=== PATIENT | female | born 1940 | race Caucasian/White ===

== ENCOUNTER 2019-06-01 09:43 | Emergency (ER) | payer MEDICARE, OTHER, SELFPAY ==
[2019-06-01 09:46] VITALS: BP 145/83; PULSE 52; RESP 15; TEMP 36.9; O2SAT 96; BMI 27.4
--- NOTE | 2019-06-01 10:01 | XRR_ITS ---
PROCEDURE INFORMATION: Exam: XR Chest, 1 View Exam date and time: 06/01/2019 10:15 AM Age: 79 years old Clinical indication: Left-sided chest pain TECHNIQUE: Imaging protocol: XR of the chest Views: 1 view. COMPARISON: [facility] Chest 2 views 03/15/2019 10:01 AM FINDINGS: Lungs: Hyperinflation. No CHF or focal consolidation. Trace bibasilar atelectasis. Pleural space: Unremarkable. No pleural effusion. No pneumothorax. Heart/Mediastinum: Unremarkable. No cardiomegaly. Vasculature: Tortuosity of the thoracic aorta. Bones/joints: No acute findings. XR/XR chest 1V portable [id number] IMPRESSION: No acute findings.
--- NOTE | 2019-06-01 10:01 | ECG_ITS ---
Measurements Intervals [place] Rate: 54 P: 68 [place]: 146 QRS: 21 QRSD: 90 T: 38 QT: 415 QTc: 396 SINUS BRADYCARDIA POSSIBLE INFERIOR MYOCARDIAL INFARCTION [30 ms Q WAVE IN II/aVF], PROBABLY OLD Compared to ECG 05/31/2019 10:36:04 Myocardial infarct finding now present Electronically Signed On 06-01-2019 14:57:29 PROGRAMMER OPERATOR NUMERICAL CONTROL by Tami Morales M.D. [id number]
--- NOTE | 2019-06-01 10:13 | W.ED.CHESTPA ---
HPI - Chest Pain General: Chief Complaint: Chest Pain Stated Complaint: Chest pain, Patient reported episode of chest pain at 920, started with pain in the neck bilaterally then across her mid chest, Patient has recently been taking 40 mg of prednisone a day for possible giant cell arteritis for the last week, has been holding aspirin from daily therapy for the last 2 days for planned temporal artery biopsy on this coming Monday. Patient took one nitro at 930 which resolved her chest pain. Patient reports no chest pain at this time. Time Seen by Provider: 06/01/19 10:01 History of Present Illness: Associated symptoms: Deny dyspnea Review of Systems General: Reports: 10 or more systems reviewed and unremarkable except in HPI and below Const: Denies: malaise Card: Reports: chest pain Resp: Denies: shortness of breath Neuro: Denies: headache PFSH ED PFSH: Statuses (acute, chronic, etc) shown below reflect problem list status as previously entered and may not be historically accurate Medical History Arthritis (Acute) Asthma (Acute) Bradycardia (Acute) Cerebral meningioma (Acute) Chronic sinusitis (Acute) Depressed (Acute) Deviated septum (Acute) GERD (gastroesophageal reflux disease) (Acute) Health education/counseling (Acute) HLA-B27 spondyloarthropathy (Acute) Hoarseness, persistent (Acute) Hypertension (Acute) Incomplete bladder emptying (Acute) Memory loss (Acute) Migraine (Acute) PMR (polymyalgia rheumatica) (Acute) Post-nasal drip (Acute) Temporal headache (Acute) Surgical History History of abdominal hysterectomy (Acute) History of appendectomy (Acute) History of bunionectomy of left great toe (Acute) History of cataract extraction with lens replacement (Acute) History of repair of rectocele (Acute) Family History Father CHF (congestive heart failure) Mother Diabetes 3 SIBLINGS HAVE DIABETES WELL Mother Cancer Hypertension Brother AAA (abdominal aortic aneurysm) Brother AAA (abdominal aortic aneurysm) Brother AAA (abdominal aortic aneurysm) Sister AAA (abdominal aortic aneurysm) Cancer Father Heart attack Social History Smoking and tobacco status: former smoker Second hand smoke exposure: Yes Alcohol intake: current Alcohol intake frequency: holidays/special occasions only Alcohol type: wine Desire information about alcohol rehabilitation?: No (RARELY EVER HAVE A DRINK) Counseling given: No Physical Exam Const: COMMON NORMALS: no apparent distress and oriented x3 GENERAL APPEARANCE: cooperative HENMT: COMMON NORMALS: normocephalic, external ears normal, EAC's normal, TM's normal bilaterally and external nose normal HEAD & SCALP: normal to inspection and normocephalic FACE & SINUS: normal facial exam NOSE: external nose normal GENERAL EAR: hearing grossly impaired EXTERNAL EAR: Yes external ears normal EXTERNAL AUDITORY CANAL: EAC's normal TYMPANIC MEMBRANE: TM's normal bilaterally MOUTH: oral and palatal mucosa normal THROAT: posterior oropharynx normal Eye: COMMON NORMALS: PERRL and EOMs intact bilaterally PUPIL: Yes PERRL Neck/C-Spine: COMMON NORMALS: full ROM and no lymphadenopathy Lymph: LYMPHATIC: no lymphedema noted Chest: COMMONS NORMALS: inspection of chest normal and palpation of chest normal Resp: COMMON NORMALS: normal respiratory effort and clear to auscultation bilaterally AUSCULTATION: clear to auscultation bilaterally Cardio: COMMON NORMALS: regular rate and regular rhythm RATE: regular rate RHYTHM: regular rhythm GI: COMMON NORMALS: normal to inspection, nondistended, normoactive bowel sounds and non-tender : COMMON NORMALS: Yes no CVA tenderness BLADDER/KIDNEY EXAM: Yes no CVA tenderness Back/Pelvis: COMMON NORMALS: no CVA tenderness and thoracic and lumbar spine normal to inspection Extremity: COMMON NORMALS: normal to inspection GENERAL: No edema Neuro: COMMON NORMALS: oriented x3, moves all extremities and no focal motor deficits Psych: COMMON NORMALS: mental status grossly normal and cooperative Skin: COMMON NORMALS: no rashes or lesions noted GENERAL SKIN EXAM: no rashes or lesions noted Course Vital Signs: Vital signs: Vital Signs Temperature 98.5 F 06/01/19 09:46 Pulse Rate 49 L 06/01/19 12:50 Respiratory Rate 13 06/01/19 12:50 Blood Pressure 152/83 06/01/19 12:50 Pulse Oximetry 94 06/01/19 12:50 MDM - Chest Pain Lab Data: Labs: Lab Results 06/01/19 06/01/19 06/01/19 Range/Units 10:05 10:05 10:05 WBC 10.1 H (4.0-10.0) 10^3/ uL RBC 4.55 (4.1-5.3) 10^6/u L Hgb 13.5 (11.5-15.3) g/dL Hct 40.9 (37.0-47.0) % MCV 89.9 (81-99) fL MCH 29.7 (28.0-34.0) pg MCHC 33.0 (30.0-36.0) g/dL RDW 13.7 (12.1-15.1) % Plt Count 388 (130-400) 10^3/c mm MPV 9.1 (7.4-10.4) fL Neut % (Auto) 82.4 % Lymph % (Auto) 11.6 % [place] % (Auto) 5.1 % Eos % (Auto) 0.1 % Baso % (Auto) 0.1 % Neut # (Auto) 8.3 H (1.8-7.7) 10^3/u L Lymph # (Auto) 1.2 (0.8-4.8) 10^3/u L [place] # (Auto) 0.5 (0.2-0.9) 10^3/u L Eos # (Auto) 0.0 (0.0-0.8) 10^3/u L Baso # (Auto) 0.0 (0.0-0.1) 10^3/u L Nucleated RBC % (a uto) 0 % Nucleated RBCs # 0.0 /100WBC PT 13.30 (10.5-13.3) SECO NDS INR 0.98 (0.8-1.2) APTT 30.8 (23.9-36.7) SECO NDS D-Dimer 0.69 H (0-0.59) ug/mIFE U Sodium 131 L (136-145) mmol/L Potassium 4.1 (3.5-5.1) mmol/L Chloride 94 L (98-107) mmol/L Carbon Dioxide 26 (22-29) mmol/L Anion Gap 15.1 (5-19) BUN 31 H (8-23) mg/dL Creatinine 1.0 H (0.5-0.9) mg/dL Glucose 106 (74-106) mg/dL Calcium 10.0 (8.8-10.2) mg/Dl Magnesium 2.2 (1.7-2.3) mg/dL Total Bilirubin 0.4 (0.15-1.2) mg/dL AST 18 (0-32) U/L ALT 20 (0-33) U/L Alkaline Phosphata se 68 (35-105) IU/L Troponin T Baselin e (0-10) ng/mL Troponin T 120 Min [place] (0-10) ng/mL Delta Troponin T (0-10) ABS# Total Protein 7.5 (6.6-8.7) g/dL Albumin 4.5 (3.5-5.2) g/dL Globulin 3.0 (1.3-4.6) g/dL Urine Color (Yellow) Urine Appearance (CLEAR) Urine pH (5-7) Ur Specific Gravit y (1.005-1.030) Urine Protein (Negative) Urine Glucose (UA) (Normal) Urine Ketones (Negative) Urine Occult Blood (Negative) Urine Nitrate (Negative) Urine Bilirubin (NEGATIVE) Urine Urobilinogen (Negative) mg/dL Ur Leukocyte Renetta ase (Negative) 06/01/19 06/01/19 06/01/19 Range/Units 10:05 11:07 12:11 WBC (4.0-10.0) 10^3/ uL RBC (4.1-5.3) 10^6/u L Hgb (11.5-15.3) g/dL Hct (37.0-47.0) % MCV (81-99) fL MCH (28.0-34.0) pg MCHC (30.0-36.0) g/dL RDW (12.1-15.1) % Plt Count (130-400) 10^3/c mm MPV (7.4-10.4) fL Neut % (Auto) % Lymph % (Auto) % [place] % (Auto) % Eos % (Auto) % Baso % (Auto) % Neut # (Auto) (1.8-7.7) 10^3/u L Lymph # (Auto) (0.8-4.8) 10^3/u L [place] # (Auto) (0.2-0.9) 10^3/u L Eos # (Auto) (0.0-0.8) 10^3/u L Baso # (Auto) (0.0-0.1) 10^3/u L Nucleated RBC % (a uto) % Nucleated RBCs # /100WBC PT (10.5-13.3) SECO NDS INR (0.8-1.2) APTT (23.9-36.7) SECO NDS D-Dimer (0-0.59) ug/mIFE U Sodium (136-145) mmol/L Potassium (3.5-5.1) mmol/L Chloride (98-107) mmol/L Carbon Dioxide (22-29) mmol/L Anion Gap (5-19) BUN (8-23) mg/dL Creatinine (0.5-0.9) mg/dL Glucose (74-106) mg/dL Calcium (8.8-10.2) mg/Dl Magnesium (1.7-2.3) mg/dL Total Bilirubin (0.15-1.2) mg/dL AST (0-32) U/L ALT (0-33) U/L Alkaline Phosphata se (35-105) IU/L Troponin T Baselin e 12 H (0-10) ng/mL Troponin T 120 Min [place] 10.12 H (0-10) ng/mL Delta Troponin T -1.88 L (0-10) ABS# Total Protein (6.6-8.7) g/dL Albumin (3.5-5.2) g/dL Globulin (1.3-4.6) g/dL Urine Color Straw (Yellow) Urine Appearance Clear (CLEAR) Urine pH 6.5 (5-7) Ur Specific Gravit y 1.005 (1.005-1.030) Urine Protein Neg (Negative) Urine Glucose (UA) Norm (Normal) Urine Ketones Negative (Negative) Urine Occult Blood Neg (Negative) Urine Nitrate Negative (Negative) Urine Bilirubin Neg (NEGATIVE) Urine Urobilinogen Norm (Negative) mg/dL Ur Leukocyte Renetta ase Negative (Negative) EKG Data^: EKG 1: Attestation: I personally reviewed and interpreted this EKG as follows: EKG interpretation date: 06/01/19 EKG interpretation time: 09:50 Prior EKG tracings: not available for review Interpretation: regular rate of 54, normal axis, no ST elevation Computer generated interpretation: Sinus bradycardia Possible inferior [place], probably old Borderline ECG EKG 2: Attestation: I personally reviewed and interpreted this EKG as follows: (1207, sinus bradycardia, regular rate and rhythm, 50 bpm, no ST elevation, no change from prior EKG) Discharge Plan Discharge Patient Disposition: Home, Self-Care Clinical Impression: Atypical chest pain Adverse drug effect Qualifiers: Encounter type: initial encounter Qualified Code(s): T50.905A - Adverse effect of unspecified drugs, medicaments and biological substances, initial encounter Condition: Stable Prescriptions: No Action prednisone 5 mg tablet 20 mg PO BID RF: 0 hydralazine 25 mg tablet 25 mg PO TID RF: 0 simvastatin 20 mg tablet RF: 0 fluticasone propionate 50 mcg/actuation spray,suspension 2 spray INTRANASAL DAILY PRN (Reason: Sinus Symptoms) RF: 0 escitalopram oxalate 10 mg tablet 10 mg PO DAILY RF: 0 levalbuterol tartrate 45 mcg/actuation HFA aerosol inhaler 2 puff INHALATION Q4H RF: 0 Aspirin Low Dose 81 mg PO DAILY RF: 0 omeprazole 40 mg Capsule,Delayed Release(Dr/Ec) 40 mg PO DAILY RF: 0 Discharge Orders: Discharge Order (Routine); Ordered 06/01/19 Ordered By: Tom Trujillo Referrals: Lucio Carmona DO [Primary Care Provider] - Discharge Diet: light diet avoid, greasy, spicy or acidic foods Discharge Activity: Resume usual activity Activity Restrictions/Additional Instructions: Home and rest Light activity Drink plenty of water with medications Eat food with prednisone Return to ER for increase chest discomfort, or shortness of breath Follow-up with primary care in three days for recheck and recommendations for further evaluation Coding Level of Care Code ED Parking Enforcement Technician for Chg Fwd Exam Problem Focused
[2019-06-01 10:24] LABS: Basophils % 0.1 %; Eosinophils % 0.1 %; Hematocrit 40.9 % (37.0-47.0); Hemoglobin 13.5 g/dL (11.5-15.3); Lymphocytes # 1.2 10^3/uL (0.8-4.8); Lymphocytes % 11.6 %; Mean Corpuscular Hemoglobin 29.7 pg (28.0-34.0); Mean Corpuscular Volume 89.9 fL (81-99); Mean Platelet Volume 9.1 fL (7.4-10.4); Monocytes # 0.5 10^3/uL (0.2-0.9); Monocytes % 5.1 %; Neutrophils # 8.3 10^3/uL (1.8-7.7); Neutrophils % 82.4 %; Nucleated Red Blood Cells % 0 %; Platelet Count 388 10^3/cmm (130-400); Red Blood Count 4.55 10^6/uL (4.1-5.3); Red Cell Distribution Width 13.7 % (12.1-15.1); White Blood Count 10.1 10^3/uL (4.0-10.0)
[2019-06-01 10:35] LABS: INR 0.98 (0.8-1.2)
[2019-06-01 10:36] VITALS: RESP 16; O2SAT 95
[2019-06-01] MEDS: morphine 4 mg/mL SDV 1 mL IVP (10:36)
[2019-06-01 10:37] LABS: Partial Thromboplastin Time 30.8 SECONDS (23.9-36.7)
[2019-06-01 10:39] LABS: D Dimer 0.69 ug/mIFEU (0-0.59)
[2019-06-01 10:53] LABS: Alanine Aminotransferase 20 U/L (0-33); Albumin Level 4.5 g/dL (3.5-5.2); Alkaline Phosphatase 68 IU/L (35-105); Anion Gap 15.1 (5-19); Aspartate Amino Transferase 18 U/L (0-32); Blood Urea Nitrogen 31 mg/dL (8-23); Carbon Dioxide 26 mmol/L (22-29); Chloride 94 mmol/L (98-107); Glucose 106 mg/dL (74-106); Magnesium 2.2 mg/dL (1.7-2.3); Potassium 4.1 mmol/L (3.5-5.1); Sodium 131 mmol/L (136-145); Total Bilirubin 0.4 mg/dL (0.15-1.2); Total Protein 7.5 g/dL (6.6-8.7)
[2019-06-01 10:55] LABS: Troponin(5th) Baseline 12 ng/mL (0-10)
[2019-06-01 11:00] VITALS: BP 140/95; PULSE 70; RESP 13; O2SAT 96
[2019-06-01 11:39] LABS: Add Urine Microscopic? NO
[2019-06-01 11:54] LABS: Bilirubin Urine Neg (NEGATIVE); Blood Urine Neg (Negative); Glucose Urine UA Norm (Normal); Ketones Urine Negative (Negative); Leukocyte Esterase Urine Negative (Negative); Nitrate Urine Negative (Negative); Protein Urine Neg (Negative); Specific Gravity, Urine 1.005 (1.005-1.030); Urine Appearance Clear (CLEAR); Urine Color Straw (Yellow); Urobilinogen Urine Norm (Negative); pH Urine 6.5 (5-7)
--- NOTE | 2019-06-01 12:01 | ECG_ITS ---
Measurements Intervals [place] Rate: 49 P: 78 [place]: 143 QRS: 34 QRSD: 97 T: 49 QT: 441 QTc: 401 SINUS BRADYCARDIA Compared to ECG 05/31/2019 10:36:04 No significant changes Electronically Signed On 06-01-2019 14:59:02 SUPERVISOR FUNCTIONAL TESTING by Tami Morales M.D. [id number]
[2019-06-01 12:39] LABS: Troponin 5 2HR 10.12 ng/mL (0-10)
--- NOTE | 2019-06-01 12:47 | PC.NURSE ---
Rec'd report , care transfered.
[2019-06-01 12:48] LABS: Troponin 5 2HR Delta -1.88 ABS# (0-10)
[2019-06-01 12:50] VITALS: BP 152/83; PULSE 49; RESP 13; O2SAT 94
--- NOTE | 2019-06-01 12:59 | W.ED.CHESTPA ---
HPI - Chest Pain General: Chief Complaint: Chest Pain Stated Complaint: Chest pain, Patient reported episode of chest pain at 920, started with pain in the neck bilaterally then across her mid chest, Patient has recently been taking 40 mg of prednisone a day for possible giant cell arteritis for the last week, has been holding aspirin from daily therapy for the last 2 days for planned temporal artery biopsy on this coming Monday. Patient took one nitro at 930 which resolved her chest pain. Patient reports no chest pain at this time. Time Seen by Provider: 06/01/19 10:01 PFSH ED PFSH: Statuses (acute, chronic, etc) shown below reflect problem list status as previously entered and may not be historically accurate Medical History Arthritis (Acute) Asthma (Acute) Bradycardia (Acute) Cerebral meningioma (Acute) Chronic sinusitis (Acute) Depressed (Acute) Deviated septum (Acute) GERD (gastroesophageal reflux disease) (Acute) Health education/counseling (Acute) HLA-B27 spondyloarthropathy (Acute) Hoarseness, persistent (Acute) Hypertension (Acute) Incomplete bladder emptying (Acute) Memory loss (Acute) Migraine (Acute) PMR (polymyalgia rheumatica) (Acute) Post-nasal drip (Acute) Temporal headache (Acute) Surgical History History of abdominal hysterectomy (Acute) History of appendectomy (Acute) History of bunionectomy of left great toe (Acute) History of cataract extraction with lens replacement (Acute) History of repair of rectocele (Acute) Family History Father CHF (congestive heart failure) Mother Diabetes 3 SIBLINGS HAVE DIABETES WELL Mother Cancer Hypertension Brother AAA (abdominal aortic aneurysm) Brother AAA (abdominal aortic aneurysm) Brother AAA (abdominal aortic aneurysm) Sister AAA (abdominal aortic aneurysm) Cancer Father Heart attack Social History Smoking and tobacco status: former smoker Second hand smoke exposure: Yes Alcohol intake: current Alcohol intake frequency: holidays/special occasions only Alcohol type: wine Desire information about alcohol rehabilitation?: No (RARELY EVER HAVE A DRINK) Counseling given: No Course Vital Signs: Vital signs: Vital Signs Temperature 98.5 F 06/01/19 09:46 Pulse Rate 49 L 06/01/19 12:50 Respiratory Rate 13 06/01/19 12:50 Blood Pressure 152/83 06/01/19 12:50 Pulse Oximetry 94 06/01/19 12:50 MDM - Chest Pain MDM Narrative: Medical decision making narrative: Patient came in today for complaints of an episode of chest discomfort to the central chest with radiation up into her neck and down both arms. Patient has no previous history of cardiac illness. Patient is at this time taking prednisone for possible giant cell arteritis. Exam notes respirations are even lungs are clear auscultation. Abdomen soft nontender. No reproducible pain to the chest wall. Vital signs are stable without ectopy on the monitor. Differential diagnosis includes ACS, adverse drug reaction, CHF, pneumonia, PE, dissecting aorta. Laboratory values were insignificant with 0 and 2 hour troponin levels unchanged. Patient was pain-free on arrival to the ER. Reviewed exam with patient recommended treatment with follow-up with primary care and continue treatment as directed. Suspect the patient had a adverse drug effect to the steroid she is on at this time causing either chest pressure or gastric discomfort. Patient should return to the ER for shortness of breath or worsening symptoms. Patient agreed to this plan at this time and will follow-up with primary care in 3 days. Lab Data: Labs: Lab Results 06/01/19 06/01/19 06/01/19 Range/Units 10:05 10:05 10:05 WBC 10.1 H (4.0-10.0) 10^3/ uL RBC 4.55 (4.1-5.3) 10^6/u L Hgb 13.5 (11.5-15.3) g/dL Hct 40.9 (37.0-47.0) % MCV 89.9 (81-99) fL MCH 29.7 (28.0-34.0) pg MCHC 33.0 (30.0-36.0) g/dL RDW 13.7 (12.1-15.1) % Plt Count 388 (130-400) 10^3/c mm MPV 9.1 (7.4-10.4) fL Neut % (Auto) 82.4 % Lymph % (Auto) 11.6 % [place] % (Auto) 5.1 % Eos % (Auto) 0.1 % Baso % (Auto) 0.1 % Neut # (Auto) 8.3 H (1.8-7.7) 10^3/u L Lymph # (Auto) 1.2 (0.8-4.8) 10^3/u L [place] # (Auto) 0.5 (0.2-0.9) 10^3/u L Eos # (Auto) 0.0 (0.0-0.8) 10^3/u L Baso # (Auto) 0.0 (0.0-0.1) 10^3/u L Nucleated RBC % (a uto) 0 % Nucleated RBCs # 0.0 /100WBC PT 13.30 (10.5-13.3) SECO NDS INR 0.98 (0.8-1.2) APTT 30.8 (23.9-36.7) SECO NDS D-Dimer 0.69 H (0-0.59) ug/mIFE U Sodium 131 L (136-145) mmol/L Potassium 4.1 (3.5-5.1) mmol/L Chloride 94 L (98-107) mmol/L Carbon Dioxide 26 (22-29) mmol/L Anion Gap 15.1 (5-19) BUN 31 H (8-23) mg/dL Creatinine 1.0 H (0.5-0.9) mg/dL Glucose 106 (74-106) mg/dL Calcium 10.0 (8.8-10.2) mg/Dl Magnesium 2.2 (1.7-2.3) mg/dL Total Bilirubin 0.4 (0.15-1.2) mg/dL AST 18 (0-32) U/L ALT 20 (0-33) U/L Alkaline Phosphata se 68 (35-105) IU/L Troponin T Baselin e (0-10) ng/mL Troponin T 120 Min [place] (0-10) ng/mL Delta Troponin T (0-10) ABS# Total Protein 7.5 (6.6-8.7) g/dL Albumin 4.5 (3.5-5.2) g/dL Globulin 3.0 (1.3-4.6) g/dL Urine Color (Yellow) Urine Appearance (CLEAR) Urine pH (5-7) Ur Specific Gravit y (1.005-1.030) Urine Protein (Negative) Urine Glucose (UA) (Normal) Urine Ketones (Negative) Urine Occult Blood (Negative) Urine Nitrate (Negative) Urine Bilirubin (NEGATIVE) Urine Urobilinogen (Negative) mg/dL Ur Leukocyte Renetta ase (Negative) 06/01/19 06/01/19 06/01/19 Range/Units 10:05 11:07 12:11 WBC (4.0-10.0) 10^3/ uL RBC (4.1-5.3) 10^6/u L Hgb (11.5-15.3) g/dL Hct (37.0-47.0) % MCV (81-99) fL MCH (28.0-34.0) pg MCHC (30.0-36.0) g/dL RDW (12.1-15.1) % Plt Count (130-400) 10^3/c mm MPV (7.4-10.4) fL Neut % (Auto) % Lymph % (Auto) % [place] % (Auto) % Eos % (Auto) % Baso % (Auto) % Neut # (Auto) (1.8-7.7) 10^3/u L Lymph # (Auto) (0.8-4.8) 10^3/u L [place] # (Auto) (0.2-0.9) 10^3/u L Eos # (Auto) (0.0-0.8) 10^3/u L Baso # (Auto) (0.0-0.1) 10^3/u L Nucleated RBC % (a uto) % Nucleated RBCs # /100WBC PT (10.5-13.3) SECO NDS INR (0.8-1.2) APTT (23.9-36.7) SECO NDS D-Dimer (0-0.59) ug/mIFE U Sodium (136-145) mmol/L Potassium (3.5-5.1) mmol/L Chloride (98-107) mmol/L Carbon Dioxide (22-29) mmol/L Anion Gap (5-19) BUN (8-23) mg/dL Creatinine (0.5-0.9) mg/dL Glucose (74-106) mg/dL Calcium (8.8-10.2) mg/Dl Magnesium (1.7-2.3) mg/dL Total Bilirubin (0.15-1.2) mg/dL AST (0-32) U/L ALT (0-33) U/L Alkaline Phosphata se (35-105) IU/L Troponin T Baselin e 12 H (0-10) ng/mL Troponin T 120 Min [place] 10.12 H (0-10) ng/mL Delta Troponin T -1.88 L (0-10) ABS# Total Protein (6.6-8.7) g/dL Albumin (3.5-5.2) g/dL Globulin (1.3-4.6) g/dL Urine Color Straw (Yellow) Urine Appearance Clear (CLEAR) Urine pH 6.5 (5-7) Ur Specific Gravit y 1.005 (1.005-1.030) Urine Protein Neg (Negative) Urine Glucose (UA) Norm (Normal) Urine Ketones Negative (Negative) Urine Occult Blood Neg (Negative) Urine Nitrate Negative (Negative) Urine Bilirubin Neg (NEGATIVE) Urine Urobilinogen Norm (Negative) mg/dL Ur Leukocyte Renetta ase Negative (Negative) Discharge Plan Discharge Patient Disposition: Home, Self-Care Clinical Impression: Atypical chest pain Adverse drug effect Qualifiers: Encounter type: initial encounter Qualified Code(s): T50.905A - Adverse effect of unspecified drugs, medicaments and biological substances, initial encounter Condition: Stable Prescriptions: No Action prednisone 5 mg tablet 20 mg PO BID RF: 0 hydralazine 25 mg tablet 25 mg PO TID RF: 0 simvastatin 20 mg tablet RF: 0 fluticasone propionate 50 mcg/actuation spray,suspension 2 spray INTRANASAL DAILY PRN (Reason: Sinus Symptoms) RF: 0 escitalopram oxalate 10 mg tablet 10 mg PO DAILY RF: 0 levalbuterol tartrate 45 mcg/actuation HFA aerosol inhaler 2 puff INHALATION Q4H RF: 0 Aspirin Low Dose 81 mg PO DAILY RF: 0 omeprazole 40 mg Capsule,Delayed Release(Dr/Ec) 40 mg PO DAILY RF: 0 Discharge Orders: Discharge Order (Routine); Ordered 06/01/19 Ordered By: Tom Trujillo Referrals: Lucio Carmona DO [Primary Care Provider] - Discharge Diet: light diet avoid, greasy, spicy or acidic foods Discharge Activity: Resume usual activity Activity Restrictions/Additional Instructions: Home and rest Light activity Drink plenty of water with medications Eat food with prednisone Return to ER for increase chest discomfort, or shortness of breath Follow-up with primary care in three days for recheck and recommendations for further evaluation Coding Level of Care Code ED Financial Accountant for Krunal Piña
[2019-06-01 13:05] VITALS: BP 125/78; PULSE 51; RESP 16; O2SAT 97
== END 2019-06-01 13:14 | disposition home or self-care (01) ==
PROVIDERS: Emergency Provider Nurse Practitioner Family; Family Provider Internal Medicine; PCP Internal Medicine
DX: R07.89 Other chest pain (principal); T50.905A Adverse effect of unspecified drugs, medicaments and biological substances, initial encounter; Z87.891 Personal history of nicotine dependence; J45.909 Unspecified asthma, uncomplicated; I10 Essential (primary) hypertension
CPT/HCPCS: 36415; 71045; 80053; 81003; 83735; 84484; 85025; 85378; 85610; 85730; 93005; 96372; 99282; A9270; J2270

== ENCOUNTER 2019-06-10 10:29 | Day surgery (SDC) | payer MEDICARE, OTHER, SELFPAY ==
[2019-05-31 10:08] VITALS: BMI 27.4
--- NOTE | 2019-05-31 10:17 | ECG_ITS ---
Measurements Intervals [place] Rate: 53 P: 64 [place]: 149 QRS: 11 QRSD: 88 T: 19 QT: 415 QTc: 393 SINUS BRADYCARDIA Compared to ECG 11/09/2017 11:53:40 Myocardial infarct finding no longer present Electronically Signed On 05-31-2019 15:08:20 ARMATURE BANDER by Yuly Snow M.D. [id number]
--- NOTE | 2019-05-31 10:42 | P.PN_ITS ---
Pre-Anesthetic Assessment Pre-Anesthetic Assessment: Height/Weight: Height 1.68 m Weight 77.111 kg Proposed Procedure: Operation Date: 06/04/19 13:25 Proposed Procedures p Temporal Artery Biopsy Left Poss Right(Bilateral) - Tadeo Jones MD Social: Social History: No alcohol and No tobacco Exam: Pre-Anes Outpt Exam: alert, oriented x 3, clear to auscultation bilaterally and regular rate & rhythm Airway: Submandibular: WNL Cervical ROM: WNL MP: 2 Dentition: Full History/ROS: No significant history except as noted Pulmonary: Pulmonary: Asthma CV/HEM: CV/HEM: Arrythmia Anesthetic Plan: ASA status: II Anesthesia: Anesthesia Evaluation and MAC Risk of > 500 ml blood loss (7ml/kg in children): No PFSH Anesthesia PFSH: Medical History (Updated 05/31/19 @ 10:43 by Neto Joseph MD) Arthritis (Acute) Asthma (Acute) Bradycardia (Acute) Cerebral meningioma (Acute) Chronic sinusitis (Acute) Depressed (Acute) Deviated septum (Acute) GERD (gastroesophageal reflux disease) (Acute) Health education/counseling (Acute) HLA-B27 spondyloarthropathy (Acute) Hoarseness, persistent (Acute) Hypertension (Acute) Incomplete bladder emptying (Acute) Memory loss (Acute) Migraine (Acute) PMR (polymyalgia rheumatica) (Acute) Post-nasal drip (Acute) Temporal headache (Acute) Surgical History (Updated 05/31/19 @ 10:43 by Neto Joseph MD) History of abdominal hysterectomy (Acute) History of appendectomy (Acute) History of bunionectomy of left great toe (Acute) History of cataract extraction with lens replacement (Acute) History of repair of rectocele (Acute) Family History (Updated 05/31/19 @ 09:43 by [email or web address]) Father CHF (congestive heart failure) Mother Diabetes 3 SIBLINGS HAVE DIABETES WELL Mother Cancer Hypertension Brother AAA (abdominal aortic aneurysm) Brother AAA (abdominal aortic aneurysm) Brother AAA (abdominal aortic aneurysm) Sister AAA (abdominal aortic aneurysm) Cancer Father Heart attack Social History (Updated 05/31/19 @ 09:45 by [email or web address]) Smoking and tobacco status: never smoked Second hand smoke exposure: Yes Alcohol intake: current Alcohol intake frequency: holidays/special occasions only Alcohol type: wine Desire information about alcohol rehabilitation?: No (RARELY EVER HAVE A DRINK) Counseling given: No Substance/Drug Use: never Data Anesthesia Cardiac Studies: No Data to Display
[2019-06-04 10:22] VITALS: BP 144/90; PULSE 51; RESP 18; TEMP 36.1; O2SAT 97
--- NOTE | 2019-06-04 10:32 | SUR.PREOP ---
DOCTOR RESCHEDULED PATIENT FOR MONDAY.
[2019-06-10 10:35] VITALS: BP 118/76; PULSE 58; RESP 58; TEMP 36.3; O2SAT 99
[2019-06-10] MEDS: sodium chloride 0.9% 1,000 ML 30 ML IV (11:25)
--- NOTE | 2019-06-10 11:59 | PM.HPUD ---
H&P update H&P Update: DATE OF SURGERY/PROCEDURE: 06/10/19 DATE H&P PERFORMED: 06/23/19 H&P UPDATE INFORMATION: H&P completed within last 30 days and No changes to prior documentation PREOP DIAGNOSIS: HEADACHES PRIMARY INDICATION FOR PROCEDURE: Concern for giant cell arteritis which would require temporal artery biopsy PLANNED PROCEDURE: Operation Date: 06/04/19 11:55 Proposed Procedures p Temporal Artery Biopsy Left Poss Right(Bilateral) - Tadeo Jones MD Operation Date: 06/10/19 12:15 Proposed Procedures p Temporal Artery Biopsy Left Poss Right(Bilateral) - Tadeo Jones MD Full H&P Medications/Allergies: Current Medications: Current Medications Generic Name Dose Route Start Last Admin Trade Name Freq PRN Reason Stop Dose Admin Sodium Chloride 1,000 mls @ 30 ml s/hr 06/10/19 11:15 06/10/19 11:25 Sodium Chloride 0.9% IV 06/11/19 11:14 30 mls/hr .Q24H SABA Administration Perinent History: Medical/Surgical History: Medical History (Updated 06/09/19 @ 00:00 by ) Arthritis (Acute) Asthma (Acute) Bradycardia (Acute) Cerebral meningioma (Acute) Chronic sinusitis (Acute) Depressed (Acute) Deviated septum (Acute) GERD (gastroesophageal reflux disease) (Acute) Health education/counseling (Acute) HLA-B27 spondyloarthropathy (Acute) Hoarseness, persistent (Acute) Hypertension (Acute) Incomplete bladder emptying (Acute) Memory loss (Acute) Migraine (Acute) PMR (polymyalgia rheumatica) (Acute) Post-nasal drip (Acute) Temporal headache (Acute) Family History: Family History Father CHF (congestive heart failure) Mother Diabetes 3 SIBLINGS HAVE DIABETES WELL Mother Cancer Hypertension Brother AAA (abdominal aortic aneurysm) Brother AAA (abdominal aortic aneurysm) Brother AAA (abdominal aortic aneurysm) Sister AAA (abdominal aortic aneurysm) Cancer Father Heart attack Social History: Social History Smoking and tobacco status: former smoker Second hand smoke exposure: Yes Alcohol intake: current Alcohol intake frequency: holidays/special occasions only Alcohol type: wine Desire information about alcohol rehabilitation?: No (RARELY EVER HAVE A DRINK) Counseling given: No Substance/Drug Use: never
[2019-06-10] MEDS: lidocaine 2% INJ 20 mL INJECTION (13:37)
--- NOTE | 2019-06-10 13:43 | P.OP_ITS ---
Operative Report Date of procedure: 06/10/19 Preop Diagnosis: Headaches concerning for giant cell arteritis Post-op diagnosis: same Post-op Findings: Normal-looking bilateral temporal arteries Procedure Done: Bilateral temporal artery biopsy Specimens removed/disposition: Bilateral temporal arteries Surgeon: Tadeo Jones Configuration Management Manager: Magda Riojas Anesthesia: MAC and other (MEDICAL RESEARCH ASSOCIATE Rodrigo) Estimated blood loss (mL): 5 Urine output (mL): 0 Complications: No immediate complication Condition: stable Disposition: same day Brief History: This is a pleasant 79 years old female patient presented to my office for work-up because of her head, and rheumatology service requested bilateral temporal artery biopsies. After history taking physical examination and reviewing the chart, I counseled the patient for bilateral temporal artery biopsies and patient agreed to proceed. Informed consent per chart Procedure: Patient was identified in the holding area, taken back to the operating room, placed in supine position, IV propofol was infused per anesthesia, arms were tucked, time-out was done verifying the patient's name and procedure all were in agreement. IV antibiotics was given with induction of anesthesia, started by prep and drape of the bilateral temporal areas under the usual sterile technique, infiltration of local lidocaine 2% at the pre-tragus area and a transverse incision was created by 15 blade knife/hand-held Doppler helped locating the artery, dissection was achieved till I reached the deeply seated left temporal artery, where 3-0 silk encircled proximally and distally after appropriate dissection, both ties were tied down and a good segment of left temporal artery was divided and was sent for permanent pathology, irrigation of the wound and hemostasis, closure by 3-0 Vicryl followed by Monocryl for subcuticular closure Dermabond was then applied. The same exact procedure was repeated on the right side and a good segment of right temporal artery was divided and sent for permanent pathology, and the wound was closed in the same manner after irrigation. Patient tolerated the procedure well, all instruments and sponges count was completed at the end of the procedure Patient was then taken to the recovery area in stable condition I was present for the whole entire procedure
[2019-06-10] MEDS: HYDROcodone-acetaminophen 5-325 mg Tablet 1 TAB PO (14:34)
[2019-06-10 14:36] VITALS: BP 163/93; PULSE 62; RESP 18; TEMP 36.4; O2SAT 98
[2019-06-10 15:00] VITALS: BP 156/89; PULSE 54; RESP 18; TEMP 36.3; O2SAT 98
== END 2019-06-10 15:17 | disposition home or self-care (01) ==
PROVIDERS: Family Provider Internal Medicine; PCP Internal Medicine; Visit Provider Surgery
PROC: (CPT 37609; principal; 2019-06-10 12:15)
DX: M31.6 Other giant cell arteritis (principal); R51 Headache; J45.909 Unspecified asthma, uncomplicated; M19.90 Unspecified osteoarthritis, unspecified site; F32.9 Major depressive disorder, single episode, unspecified; I10 Essential (primary) hypertension; K21.9 Gastro-esophageal reflux disease without esophagitis; Z82.49 Family history of ischemic heart disease and other diseases of the circulatory system; Z83.3 Family history of diabetes mellitus; Z79.82 Long term (current) use of aspirin
CPT/HCPCS: 37609; 12345; 88341; 88342; 93005; 96365; J0690; J2001; J2704; J3010; J7030

== ENCOUNTER → 2019-06-12 10:21 | Outpatient (BNVA) | payer MEDICARE, OTHER, SELFPAY | PROVIDERS: Family Provider Internal Medicine; PCP Internal Medicine; Visit Provider Specialist | DX: M31.6 Other giant cell arteritis (principal); R51 Headache | CPT/HCPCS: 99214 ==

== ENCOUNTER → 2019-06-19 09:47 | Outpatient (BNVA) | payer MEDICARE, OTHER, SELFPAY | PROVIDERS: Family Provider Internal Medicine; PCP Internal Medicine; Referring Provider Internal Medicine; Visit Provider Internal Medicine Rheumatology | DX: J32.2 Chronic ethmoidal sinusitis (principal); J32.0 Chronic maxillary sinusitis; Z79.899 Other long term (current) drug therapy; M35.3 Polymyalgia rheumatica; K21.9 Gastro-esophageal reflux disease without esophagitis; Z79.52 Long term (current) use of systemic steroids | CPT/HCPCS: 99214; G0463 ==

== ENCOUNTER → 2019-06-26 14:04 | Outpatient (BNVA) | payer MEDICARE, OTHER, SELFPAY | PROVIDERS: Family Provider Internal Medicine; PCP Internal Medicine; Referring Provider Internal Medicine; Visit Provider Otolaryngology | DX: J32.9 Chronic sinusitis, unspecified (principal); J34.2 Deviated nasal septum; R49.0 Dysphonia; J32.2 Chronic ethmoidal sinusitis | CPT/HCPCS: 31575; 99214 ==

== ENCOUNTER 2019-07-05 07:15 | Outpatient (REF) | payer MEDICARE, OTHER, SELFPAY ==
[2019-07-05 12:39] LABS: Cholesterol 241 mg/dL (0-200); Glucose 80 mg/dL (65-115); HDL Cholesterol 115 mg/dL (60-100); LDL Cholesterol Calculated 109 mg/dL (50-129); LDL HDL Ratio 0.95 RATIO (0.00-3.22); Triglycerides 83 mg/dL (0-150)
[2019-07-05 13:22] LABS: Estmated Average Glucose 148; Hemoglobin A1C 6.8 % (4.0-6.0)
== END 2019-07-05 07:16 | disposition home or self-care (01) ==
LOC: LAB 07:15
PROVIDERS: Family Provider Internal Medicine; PCP Internal Medicine; Visit Provider Dermatology
DX: Z01.89 Encounter for other specified special examinations (principal)
CPT/HCPCS: 80061; 82947; 83036

== ENCOUNTER 2019-07-13 08:31 | Inpatient (IN) | payer MEDICARE, OTHER, SELFPAY ==
[2019-07-13] VITALS (25 sets, daily range): BP systolic 103–144; BP diastolic 67–102; PULSE 55–104; RESP 18–26; TEMP 36.5–36.8; O2SAT 91–97; BMI 29.2
--- NOTE | 2019-07-13 09:00 | ED_ITS ---
Entered by Vannessa Bell, acting as scribe for Jul 13, 2019 08:31 HPI - Chest Pain General: Chief Complaint: Chest Pain Stated Complaint: SOB, Chest pain Time Seen by Provider: 07/13/19 09:00 Source: patient and family Mode of arrival: ambulatory Limitations: no limitations History of Present Illness: HPI narrative: 79 yo female presents with chest pain and discomfort. pt states this started today when waking up. pt states the radiologist physician stopped hydralazine. pt states she has had shortness of breath. pt states the pain radiates to her upper back. pt denies any other symptoms at this time. Reviewing the chart patient had a PET scan in April 2019 that was normal. MD complaint: chest pain and chest discomfort Onset (ago): day(s) (today) Timing of current episode: constant, increasing and still present Prior episodes: Yes Onset: during rest Pain location: substernal and left chest Pain radiation: left shoulder Severity: mild Quality: sharp Relieving factors: nothing Associated symptoms: Reports dyspnea and other (dizziness); Deny abdominal pain, fever(s), nausea or vomiting Treatment prior to arrival: none Review of Systems General: Reports: 10 or more systems reviewed and unremarkable except in HPI and below Const: Denies: fever, chills, body aches, fatigue, malaise or night sweats Eyes: Denies: photophobia ENMT: Denies: throat pain, oral sores/lesions, dental pain, nasal discharge or nasal congestion Card: Reports: irregular heart rhythm Resp: Reports: shortness of breath GI: Denies: abdominal pain, nausea, vomiting, vomiting blood, coffee grounds in vomit, difficulty swallowing, heartburn/indigestion, diarrhea, constipation, cramping, blood in stool or black tarry stool : Denies: flank pain, painful urination, urinary frequency, urinary urgency, urinary incontinence or blood in urine Musc: Denies: neck pain, back pain, extremity pain, extremity swelling, joint pain or joint swelling Skin/Breast: Denies: rash, itching or redness Neuro: Denies: headache, numbness in extremities, weakness in extremities, changes in sensation, lack of coordination, difficulty walking, frequent falls, dizziness, vertigo or confusion Psych: Denies: anxiety, depression, loss of interest, visual hallucinations, auditory hallucinations, suicidal ideation or homicidal ideation Endo: Denies: excessive urination, excessive thirst, tired all the time or cold intolerance Koffi/Lymph: Denies: easy bruising, easy bleeding, petechiae, enlarged lymph nodes or tender lymph nodes PFSH ED PFSH: Medical History Arthritis Asthma Bradycardia Cerebral meningioma Chronic sinusitis Chronic sinusitis Depressed Deviated septum Deviated septum Dysphonia GERD (gastroesophageal reflux disease) Health education/counseling High risk medication use HLA-B27 spondyloarthropathy Hoarseness, persistent Hypertension Incomplete bladder emptying Memory loss Migraine PMR (polymyalgia rheumatica) Post-nasal drip Sinusitis, maxillary, chronic Temporal giant cell arteritis Temporal headache Surgical History History of abdominal hysterectomy History of appendectomy History of biopsy of temporal artery History of bunionectomy of left great toe History of cataract extraction with lens replacement History of repair of rectocele Family History Father CHF (congestive heart failure) Mother Diabetes 3 SIBLINGS HAVE DIABETES WELL Mother Cancer Hypertension Brother AAA (abdominal aortic aneurysm) Brother AAA (abdominal aortic aneurysm) Brother AAA (abdominal aortic aneurysm) Sister AAA (abdominal aortic aneurysm) Cancer Father Heart attack Social History Smoking and tobacco status: never smoked Second hand smoke exposure: No Alcohol intake: current Alcohol intake frequency: holidays/special occasions only Alcohol type: wine Desire information about alcohol rehabilitation?: No (RARELY EVER HAVE A DRINK) Counseling given: No History of recent travel: No Physical Exam Const: COMMON NORMALS: average body habitus, oriented x3 and alert GENERAL APPEARANCE: cooperative, comfortable, well kempt and well developed NUTRITIONAL APPEARANCE: obese ORIENTATION/CONSCIOUSNESS: Yes awake, Yes oriented to person and Yes oriented to place HENMT: COMMON NORMALS: normocephalic, head/scalp atraumatic, EAC's normal, TM's normal bilaterally, external nose normal, moist oral mucous membranes and oropharynx normal HEAD & SCALP: normocephalic and atraumatic NOSE: external nose normal EXTERNAL AUDITORY CANAL: EAC's normal TYMPANIC MEMBRANE: TM's normal bilaterally MOUTH: oral and palatal mucosa normal, lip normal and tongue normal THROAT: posterior oropharynx normal and tonsils normal Eye: COMMON NORMALS: PERRL, EOMs intact bilaterally, conjunctivae normal and no scleral icterus CONJUNCTIVA: Yes conjunctivae normal PUPIL: Yes PERRL Neck/C-Spine: COMMON NORMALS: full ROM, no lymphadenopathy, supple, no me ningeal signs and thyroid normal THYROID: thyroid normal and asymmetrical Lymph: LYMPHATIC: no lymphadenopathy noted Chest: COMMONS NORMALS: inspection of chest normal and palpation of chest normal CHEST: No tenderness Resp: COMMON NORMALS: normal respiratory effort, no retractions, no use of accessory muscles and clear to auscultation bilaterally AUSCULTATION: clear to auscultation bilaterally GI: COMMON NORMALS: normal to inspection, nondistended, normoactive bowel sounds, soft to palpation and no hepatosplenomegaly PALPATION: Yes soft and Yes no hepatosplenomegaly : COMMON NORMALS: Yes no CVA tenderness BLADDER/KIDNEY EXAM: Yes no CVA tenderness Back/Pelvis: COMMON NORMALS: no CVA tenderness LUMBAR SPINE/LOWER BACK: Yes normal to inspection Extremity: COMMON NORMALS: no clubbing, cyanosis or edema, no calf tenderness and no pedal edema Neuro: COMMON NORMALS: oriented x3 SENSORIUM/ORIENTATION: Yes alert, Yes oriented to person and Yes oriented to place MENINGEAL SIGNS: Yes no meningeal signs Psych: APPEARANCE: Yes well kempt Skin: COMMON NORMALS: no rashes or lesions noted and skin turgor normal GENERAL SKIN EXAM: no rashes or lesions noted and turgor normal Course ED course: Patient reporting significant shortness of breath with any activity chest discomfort is more in the back. We checked a d-dimer was positive CTA CTA chest shows obvious bilateral pulmonary emboli with right heart strain. We will go ahead and heparinize echocardiogram bilateral lower extremity venous duplex discussed with Dr. Schneider issue will admit the patient Vital Signs: Vital signs: Vital Signs Temperature 97.7 F 07/13/19 13:30 Pulse Rate 60 07/13/19 15:30 Respiratory Rate 21 H 07/13/19 13:30 Blood Pressure 110/67 07/13/19 15:30 Pulse Oximetry 94 07/13/19 15:30 MDM - Chest Pain Lab Data: Labs: Lab Results 02/15/20 02/15/20 02/15/20 Range/Units 09:00 09:00 09:00 WBC 8.8 (4.0-10.0) 10^3/ uL RBC 4.53 (4.1-5.3) 10^6/u L Hgb 13.6 (11.5-15.3) g/dL Hct 41.6 (37.0-47.0) % MCV 91.8 (81-99) fL MCH 30.0 (28.0-34.0) pg MCHC 32.7 (30.0-36.0) g/dL RDW 14.5 (12.1-15.1) % Plt Count 263 (130-400) 10^3/c mm MPV 9.0 (7.4-10.4) fL Neut % (Auto) 76.1 % Lymph % (Auto) 15.8 % [place] % (Auto) 6.5 % Eos % (Auto) 0.6 % Baso % (Auto) 0.5 % Neut # (Auto) 6.7 (1.8-7.7) 10^3/u L Lymph # (Auto) 1.4 (0.8-4.8) 10^3/u L [place] # (Auto) 0.6 (0.2-0.9) 10^3/u L Eos # (Auto) 0.1 (0.0-0.8) 10^3/u L Baso # (Auto) 0.0 (0.0-0.1) 10^3/u L Nucleated RBC % (a uto) 0 % Nucleated RBCs # 0.0 /100WBC D-Dimer (0-0.59) ug/mIFE U Sodium 133 L (136-145) mmol/L Potassium 3.3 L (3.5-5.1) mmol/L Chloride 95 L (98-107) mmol/L Carbon Dioxide 23 (22-29) mmol/L Anion Gap 18.3 (5-19) BUN 19 (8-23) mg/dL Creatinine 1.0 H (0.5-0.9) mg/dL Glucose 165 H (65-115) mg/dL Calcium 9.5 (8.5-10.5) mg/dL Total Bilirubin 0.7 (0.15-1.2) mg/dL AST 26 (0-32) U/L ALT 24 (0-33) U/L Alkaline Phosphata se 68 (35-105) IU/L Troponin T Baselin e 80 H (0-10) ng/mL Troponin T 120 Min [place] (0-10) ng/mL Delta Troponin T (0-10) ABS# Total Protein 7.3 (6.6-8.7) g/dL Albumin 4.2 (3.5-5.2) g/dL Globulin 3.1 (1.3-4.6) g/dL 07/13/19 07/13/19 Range/Units 09:00 11:18 WBC (4.0-10.0) 10^3/ uL RBC (4.1-5.3) 10^6/u L Hgb (11.5-15.3) g/dL Hct (37.0-47.0) % MCV (81-99) fL MCH (28.0-34.0) pg MCHC (30.0-36.0) g/dL RDW (12.1-15.1) % Plt Count (130-400) 10^3/c mm MPV (7.4-10.4) fL Neut % (Auto) % Lymph % (Auto) % [place] % (Auto) % Eos % (Auto) % Baso % (Auto) % Neut # (Auto) (1.8-7.7) 10^3/u L Lymph # (Auto) (0.8-4.8) 10^3/u L [place] # (Auto) (0.2-0.9) 10^3/u L Eos # (Auto) (0.0-0.8) 10^3/u L Baso # (Auto) (0.0-0.1) 10^3/u L Nucleated RBC % (a uto) % Nucleated RBCs # /100WBC D-Dimer 3.96 H (0-0.59) ug/mIFE U Sodium (136-145) mmol/L Potassium (3.5-5.1) mmol/L Chloride (98-107) mmol/L Carbon Dioxide (22-29) mmol/L Anion Gap (5-19) BUN (8-23) mg/dL Creatinine (0.5-0.9) mg/dL Glucose (65-115) mg/dL Calcium (8.5-10.5) mg/dL Total Bilirubin (0.15-1.2) mg/dL AST (0-32) U/L ALT (0-33) U/L Alkaline Phosphata se (35-105) IU/L Troponin T Baselin e (0-10) ng/mL Troponin T 120 Min [place] 80.18 H (0-10) ng/mL Delta Troponin T 0.18 (0-10) ABS# Total Protein (6.6-8.7) g/dL Albumin (3.5-5.2) g/dL Globulin (1.3-4.6) g/dL Imaging Data^: CXR: Radiologist's impression: [address] [id number] XRay Report Signed Patient: Josephine Contreras #: [id number] : 1940Acct#:[id number] Age/Sex: 79 / FADM Date: 07/13/19 Loc: ERRoom/Bed: Attending Dr: Ordering Provider/Ordering MD: Jaime Yusuf DO Date of Service: 07/13/19 Procedure(s): XR chest 1V portable [id number] Accession Number(s): [id number] Report Number: [id number] WS: [id number] XR chest 1V portable [id number] REASON FOR EXAM: dyspnea/cough FINDINGS: The cardiac silhouette is not enlarged arteriosclerotic changes in the arch of the aorta are seen. There is chronic changes off the right hilum and right lower lung but no definite pneumonias, pleural effusion, pulmonary edema, or mass effect. There is no evidence of pneumothorax. XR/XR chest 1V portable [id number] IMPRESSION: No acute changes are identified. Dictated By:Román Botello DO Signed By:Román Botello DOSigned Date/Time:07/13/19 1028 Discharge Plan Discharge Patient Disposition: Admitted As Inpatient Admit Provider: Soha Marcelino Clinical Impression: Pulmonary emboli, Giant cell arteritis Condition: Stable Interventions: ED Discharge Assessment Last Done: 07/13/19 12:45 Discharge Date/Time: 07/13/19 13:05 Coding Level of Care Code ED Franchise Sales Representative for Chg Fwd Exam Comprehensive The documentation recorded by the Ray estrella Bridget Annette, accurately reflects the service I personally performed and the decisions made by , Jaime Yusuf, Jul 13, 2019 08:31
--- NOTE | 2019-07-13 09:06 | ECG_ITS ---
Measurements Intervals [place] Rate: 93 P: 77 CT: 146 QRS: 3 QRSD: 81 T: 30 QT: 352 QTc: 440 SINUS RHYTHM POSSIBLE ANTERIOR MYOCARDIAL INFARCTION [30 ms Q WAVE IN V3/V4, OR R < 0.2 mV IN V4], PROBABLY OLD INTERPRETATION BASED ON A DEFAULT AGE OF 40 YEARS Compared to ECG 06/01/2019 12:06:51 Myocardial infarct finding now present Sinus bradycardia no longer present Electronically Signed On 07-13-2019 14:26:19 DISABILITY COORDINATOR by Robert Martinez M.D. [email or web address]
[2019-07-13 09:17] LABS: Basophils % 0.5 %; Eosinophils # 0.1 10^3/uL (0.0-0.8); Eosinophils % 0.6 %; Hematocrit 41.6 % (37.0-47.0); Hemoglobin 13.6 g/dL (11.5-15.3); Lymphocytes # 1.4 10^3/uL (0.8-4.8); Lymphocytes % 15.8 %; Mean Corpuscular HGB Conc 32.7 g/dL (30.0-36.0); Mean Corpuscular Volume 91.8 fL (81-99); Monocytes # 0.6 10^3/uL (0.2-0.9); Monocytes % 6.5 %; Neutrophils # 6.7 10^3/uL (1.8-7.7); Neutrophils % 76.1 %; Nucleated Red Blood Cells % 0 %; Platelet Count 263 10^3/cmm (130-400); Red Blood Count 4.53 10^6/uL (4.1-5.3); Red Cell Distribution Width 14.5 % (12.1-15.1); White Blood Count 8.8 10^3/uL (4.0-10.0)
[2019-07-13 09:34] LABS: Alanine Aminotransferase 24 U/L (0-33); Albumin Level 4.2 g/dL (3.5-5.2); Alkaline Phosphatase 68 IU/L (35-105); Anion Gap 18.3 (5-19); Aspartate Amino Transferase 26 U/L (0-32); Blood Urea Nitrogen 19 mg/dL (8-23); Calcium 9.5 mg/dL (8.5-10.5); Carbon Dioxide 23 mmol/L (22-29); Chloride 95 mmol/L (98-107); Globulin 3.1 g/dL (1.3-4.6); Glucose 165 mg/dL (65-115); Potassium 3.3 mmol/L (3.5-5.1); Sodium 133 mmol/L (136-145); Total Bilirubin 0.7 mg/dL (0.15-1.2); Total Protein 7.3 g/dL (6.6-8.7); Troponin(5th) Baseline 80 ng/mL (0-10)
[2019-07-13] MEDS: metoprolol tartrate 1 mg/1 mL SDV 5 mL 2.5 MG IV (09:52)
[2019-07-13] MEDS: lisinopril 10 mg Tablet PO (09:52)
[2019-07-13] MEDS: metoprolol tartrate 25 mg Tablet PO (09:52)
--- NOTE | 2019-07-13 10:04 | XR_ITS ---
WS: [id number] XR chest 1V portable [id number] REASON FOR EXAM: dyspnea/cough FINDINGS: The cardiac silhouette is not enlarged arteriosclerotic changes in the arch of the aorta ar e seen. There is chronic changes off the right hilum and right lower lung but no definite pneumonias, pleural effusion, pulmonary edema, or mass effect. There is no evidence of pneumothorax. XR/XR chest 1V portable [id number] IMPRESSION: No acute changes are identified.
[2019-07-13 10:21] LABS: D Dimer 3.96 ug/mIFEU (0-0.59)
--- NOTE | 2019-07-13 11:01 | CTR_ITS ---
PROCEDURE INFORMATION: Exam: CT Angiography Chest With Contrast Exam date and time: 07/13/2019 11:02 AM Age: 79 years old Clinical indication: Shortness of breath; Additional info: Dyspnea TECHNIQUE: Imaging protocol: Computed tomographic angiography of the chest with intravenous contrast. 3D rendering: MIP and/or 3D reconstructed images were created by the technologist. Total DLP: 592.68 mGy-cm Radiation optimization: All CT scans at this facility use at least one of these dose optimization techniques: automated exposure control; mA and/or kV adjustment per patient size (includes targeted exams where dose is matched to clinical indication); or iterative reconstruction. Contrast material: VISI 320; Contrast volume: 95 ml; Contrast route: LT AC; COMPARISON: CTA Chest-Pulmonary Emb [id number] 05/24/2019 1:47 PM FINDINGS: Pulmonary arteries: Prominent bilateral pulmonary emboli in the lower lobes, right middle lobe, lingula and upper lobes. Great vessels off aortic arch: Calcification of the thoracic aorta and/or great vessels consistent with atherosclerotic vessel disease. Aorta: Unremarkable. No aortic aneurysm. No aortic dissection. Lungs: Bilateral discoid atelectasis and/or scarring. Mild left basilar atelectasis and/or pneumonia. Pleural space: Unremarkable. No pneumothorax. No pleural effusion. Heart: Right heart strain with right ventricle larger than the left. Severe calcified coronary artery disease. Kidneys and ureters: Right renal cyst measuring >1.0 cm . Lymph nodes: Unremarkable. No enlarged lymph nodes. Bones/joints: Unremarkable. No acute fracture. Soft tissues: Unremarkable. CT/CT angio chest PE protcl [id number] IMPRESSION: 1. Prominent bilateral pulmonary emboli in the lower lobes, right middle lobe, lingula and upper lobes. 2. Right heart strain with right ventricle larger than the left. 3. Severe calcified coronary artery disease. Radiation Dose CTDIVOL = (mGy): DLP = 592.68 (mGy-cm)
--- NOTE | 2019-07-13 11:06 | ECG_ITS ---
Measurements Intervals [place] Rate: 58 P: 58 WI: 149 QRS: -2 QRSD: 81 T: 13 QT: 408 QTc: 402 SINUS BRADYCARDIA Compared to ECG 06/01/2019 12:06:51 No significant changes Electronically Signed On 07-13-2019 14:28:36 PROGRAM PRODUCTION SPECIALIST by Robert Martinez M.D. [id number]
[2019-07-13 11:43] LABS: Troponin 5 2HR 80.18 ng/mL (0-10); Troponin 5 2HR Delta 0.18 ABS# (0-10)
[2019-07-13] MEDS: iodixanol 320 mg/mL 100mL Btl IV (11:47)
--- NOTE | 2019-07-13 12:04 | USCV_ITS ---
Josephine Contreras Age: 79 Gender: F : 1940 Exam Date: 07/13/2019 15:34 Ordering Phys: Jaime Yusuf DO Technologist: Cheko Jones [place] [facility] [place]: ? RT HEART BP: 110 / 67 HR: 63 Rhythm: Sinus Technical Quality: Good MEASUREMENTS (Male / Female) Normal Values 2D ECHO LV Diastolic Diameter PLAX 2.3 cm 4.2 - 5.9 / 3.9 - 5.3 cm LV Systolic Diameter PLAX 1.9 cm IVS Diastolic Thickness 2.4 cm 0.6 - 1.0 / 0.6 - 0.9 cm IVS Systolic Thickness 2.5 cm LVPW Diastolic Thickness 1.0 cm 0.6 - 1.0 / 0.6 - 0.9 cm LVPW Systolic Thickness 1.4 cm LVOT Diameter 2.1 cm LV Ejection Fraction 2D Teich 39.2 % LA Diameter 3.6 cm M-MODE LV Diastolic Diameter MM 4.1 cm 4.2 - 5.9 / 3.9 - 5.3 cm LV Systolic Diameter MM 2.4 cm LV Ejection Fraction MM Teich 72.3 % IVS Diastolic Thickness MM 1.8 cm 0.6 - 1.0 / 0.6 - 0.9 cm IVS Systolic Thickness MM 2.0 cm LVPW Diastolic Thickness MM 1.1 cm 0.6 - 1.0 / 0.6 - 0.9 cm LVPW Systolic Thickness MM 1.8 cm RV Diastolic Diameter MM 1.6 cm Aortic Annulus Diameter 3.1 cm LA Ao Ratio MM 1.1 MV E Point Septal Separation 0.7 cm DOPPLER AV Peak Velocity 175.0 cm/s LVOT Peak Velocity 128.0 cm/s AV Area Cont Eq vti 2.9 cm squared AV Area Cont Eq pk 2.4 cm squared MV Area PHT 3.1 cm squared Mitral E to A Ratio 0.8 MV E' Velocity 77.0 cm/s Mitral E to MV E' Ratio 11.7 Mitral E to LV E' Lateral Ratio 11.4 Mitral E to LV E' Septal Ratio 12.3 TR Peak Velocity 416.0 cm/s TR Peak Gradient 69.2 mmHg TV Peak E Velocity 126.0 cm/s Right Atrial Pressure 3.0 mmHg Pulmonary Artery Systolic Pressu 72.2 mmHg PV Peak Velocity 116.0 cm/s FINDINGS Left Ventricle Normal left ventricular cavity size. Mild left ventricular hypertrophy. Normal left ventricular systolic function. No regional wall motion abnormalities. Left ventricular ejection fraction is estimated at 70 %. Right Ventricle Normal right ventricular size and systolic function. Severe pulmonary hypertension, RVSP 72.2 mmHg. Right Atrium Mildly increased right atrial size. Left Atrium The left atrium is normal in size. Mitral Valve Structurally normal mitral valve without significant stenosis or prolapse. There is no mitral regurgitation. Aortic Valve Structurally normal aortic valve without significant sclerosis or stenosis. There is no aortic regurgitation. Tricuspid Valve Structurally normal tricuspid valve. [id number] tricuspid valve regurgitation. Pulmonic Valve Pulmonic valve not well visualized. Pericardium Normal pericardium without effusion. Aorta Normal ascending aorta dimension. CONCLUSIONS Normal left ventricular cavity size. Mild left ventricular hypertrophy. Normal left ventricular systolic function. No regional wall motion abnormalities. Left ventricular ejection fraction is estimated at 70 %. Normal right ventricular size and systolic function. Severe pulmonary hypertension, RVSP 72.2 mmHg. Mildly increased right atrial size. There are no prior echocardiogram studies to compare. Dr. Robert Martinez MD (Electronically Signed) Final Date: 14 July 2019 08:58 S
--- NOTE | 2019-07-13 12:10 | USCV_ITS ---
Josephine Contreras Age: 79 Gender: F : 1940 Exam Date: 07/13/2019 15:50 Ordering Phys: Jaime Yusuf DO Technologist: Cheko Jones Exam Location: [facility] – [place] Indication: ? PE HISTORY: Lower extremity swelling. PROCEDURES: The venous duplex Doppler examination of both lower extremities was performed in the standard fashion. The following venous structures were evaluated: common femoral vein, profunda vein, proximal portion of the greater saphenous vein, superficial femoral vein, and the popliteal vein. Bilaterally, the common femoral, superficial femoral, profunda femoral, popliteal, posterior tibial, greater saphenous veins, and the peroneal trunk were identified and interrogated in the standard fashion. These veins were found to be easily compressible with spontaneous blood flow. No evidence of insufficiency or thrombus noted. FINDINGS: Normal 2-D Doppler and augmentation and compressibility throughout the lower extremity venous structures. Additional imaging through the proximal calf veins also reveals no thrombus. Limited evaluation of the greater saphenous vein is patent with no thrombus.. The veins were found to be easily compressible with spontaneous blood flow. Non pulsatile flow pattern. CONCLUSIONS No evidence of DVT in the above-mentioned identifiable veins. Dr Tamiko Hernandes MD [facility] (Electronically Signed) Final Date: 15 July 2019 09:56 S
[2019-07-13] MEDS: heparin drip 25,000 UNIT/500 ML PREMIX 28.7 UNIT IV (12:24)
[2019-07-13] MEDS: heparin 5,000 unit/mL INJ 1 mL 5000 UNIT IV (12:24)
--- NOTE | 2019-07-13 14:06 | P.HP_ITS ---
Providers/Chief Complaint Admitting Physician: Soha Marcelino MD Primary Care Provider: Lucio Carmona DO Chief Complaint: SOB, Chest pain History of Present Illness Josephine Contreras is a 79 year old female with PMHx of GCA (on prednisone, methotrexate), HTN, Chronic bradycardia, GERD, HLA-B27 spondyloarthropathy, Stress incontinence; presents from home with complaints of chest discomfort, tightness underneath her breast area and significant shortness of breath particularly yesterday. She has had some chest discomfort which has not been consistent for the past few days, sometimes will feel like it radiates from her sternum to her spine, sometimes is left-sided, sometimes is in the area between her shoulder blades, but is often associated with shortness of breath even with minimal exertion. She is not oxygen dependent at baseline and uses an inhaler as needed for history of asthma. She is a non-smoker. She describes an episode of left calf discomfort a few weeks ago which spontaneously resolved. She denies any recent trauma, prolonged travel, recent surgery other than the aforementioned temporal artery biopsies done on 06/10/2019. Has not had any prior history of VTE. She recently had bilateral temporal artery biopsies as part of her work-up for giant cell arteritis, biopsy was negative. She has been following up with rheumatology and neurology and is currently on a tapering dose of prednisone as well as methotrexate which is being used as a steroid sparing agent. Symptoms seem to be well-controlled on this regimen. She is unaware of any family history of blood clotting disorders. She is aware of her history of chronic bradycardia and states that her baseline heart rate is 50-60. She has been off her blood pressure medications for about 3 weeks due to her blood pressure trending down. Upon evaluation in the ER today she was found to have a normal CBC, sodium of 133, potassium of 3.3, normal renal function, d-dimer of 3.96, unremarkable chest x-ray, CTA showing prominent bilateral PE in the lower lobes, right middle lobe lingula and upper lobes with evidence of right ventricular heart strain. Echo and venous duplex have been ordered. She has been started on a heparin drip. She is currently requiring 4 L nasal cannula and saturating at 94%. Vital signs are otherwise stable including a blood pressure 115/75, heart rate of 58. She does not look like she is in any acute distress during my assessment in the ER. is at bedside. Patient is being admitted for further work-up as well as initiation of anticoagulation Review of Systems Const: Reports: change in appetite (decreased appetite) and fatigue; Denies: fever or chills Eyes: Denies: change in vision ENMT: Denies: painful swallowing Card: Reports: chest pain, lightheadedness and shortness of breath on exertion; Denies: palpitations, edema, swelling of feet/ankles, syncope, pre-syncope or leg pain with exertion Resp: Denies: shortness of breath, productive cough, non-productive cough, w heezing, pain on inspiration, coughing up blood or chest congestion GI: Denies: abdominal pain, nausea, vomiting, vomiting blood or blood in stool : Reports: urinary incontinence (stress incontinence at baseline); Denies: difficulty urinating, painful urination or urinary frequency Musc: Denies: back pain or muscle cramps Skin/Breast: Denies: rash Neuro: Denies: numbness in extremities or weakness in extremities Psych: Denies: anxiety Medications/Allergies Home Medications Medication Instructions Recorded Confirmed Last Taken Type Caltrate + D3 Plus Minerals 1 tab PO TID 07/13/19 07/13/19 07/13/19 History Coricidin HBP Cold-Multi Sympt 1 tab PO BID 07/13/19 07/13/19 Unknown History methotrexate sodium 10 mg PO Q7D 07/13/19 07/13/19 Unknown History peg 400-propylene glycol [Systane See Rx Instructions .ROUTE .COMPLEX 07/13/19 07/13/19 07/13/19 History (propylene glycol)] Allergies Allergy/AdvReac Type Severity Reaction Status Date / Time hydralazine Allergy ALGY-Redness Verified 07/13/19 08:39 of Skin PFSH Acute PFSH: Medical History Arthritis Asthma Bradycardia Cerebral meningioma Chronic sinusitis Chronic sinusitis Depressed Deviated septum Deviated septum Dysphonia GERD (gastroesophageal reflux disease) Health education/counseling High risk medication use HLA-B27 spondyloarthropathy Hoarseness, persistent Hypertension Incomplete bladder emptying Memory loss Migraine PMR (polymyalgia rheumatica) Post-nasal drip Sinusitis, maxillary, chronic Temporal giant cell arteritis Temporal headache Surgical History History of abdominal hysterectomy History of appendectomy History of biopsy of temporal artery History of bunionectomy of left great toe History of cataract extraction with lens replacement History of repair of rectocele Family History Father CHF (congestive heart failure) Mother Diabetes 3 SIBLINGS HAVE DIABETES WELL Mother Cancer Hypertension Brother AAA (abdominal aortic aneurysm) Brother AAA (abdominal aortic aneurysm) Brother AAA (abdominal aortic aneurysm) Sister AAA (abdominal aortic aneurysm) Cancer Father Heart attack Social History Smoking and tobacco status: never smoked Second hand smoke exposure: No Alcohol intake: current Alcohol intake frequency: holidays/special occasions only Alcohol type: wine Desire information about alcohol rehabilitation?: No (RARELY EVER HAVE A DRINK) Counseling given: No History of recent travel: No Vitals/I&O/Wt Last Vital Signs Temp 97.7 F 07/13/19 13:30 Pulse 63 07/13/19 13:30 Resp 21 H 07/13/19 13:30 BP 118/78 07/13/19 13:30 Pulse Ox 95 07/13/19 13:30 Weight last 48 hrs Weight 79.832 kg Physical Exam Const: COMMON NORMALS: no apparent distress and oriented x3 GENERAL APPEARANCE: cooperative, comfortable, well kempt and well developed ORIENTATION/CONSCIOUSNESS: Yes awake HENMT: COMMON NORMALS: normocephalic, head/scalp atraumatic, hearing grossly normal bilaterally and moist oral mucous membranes HEAD & SCALP: normocephalic and atraumatic Eye: COMMON NORMALS: PERRL, EOMs intact bilaterally and conjunctivae normal CONJUNCTIVA: Yes conjunctivae normal PUPIL: Yes PERRL Neck/C-Spine: COMMON NORMALS: full ROM GENERAL: Yes normal visual inspection and Yes trachea midline Resp: COMMON NORMALS: normal respiratory effort, no retractions, no use of accessory muscles and clear to auscultation bilaterally EFFORT & INSPECTION: Yes able to speak in complete sentences, Yes symmetric chest movement and No tachypneic AUSCULTATION: clear to auscultation bilaterally OTHER: -on 4 L NC, saturating at 94% Cardio: COMMON NORMALS: regular rate, regular rhythm, S1 normal heart sound, S2 normal heart sound and no murmurs RATE: regular rate RHYTHM: regular rhythm HEART SOUNDS: S1 normal and S2 normal GI: COMMON NORMALS: normal to inspection, nondistended, normoactive bowel sounds, soft to palpation and non-tender PALPATION: Yes soft Extremity: COMMON NORMALS: normal to inspection, full ROM and no clubbing, cyanosis or edema; negative for no pedal edema GENERAL: No calf tenderness (negative Alfreda's sign bilaterally) Neuro: COMMON NORMALS: oriented x3, moves all extremities, no focal motor deficits and no sensory deficits noted Psych: COMMON NORMALS: mental status grossly normal, thought process normal, cooperative, affect normal and speech normal SPEECH: Yes normal speech THOUGHT PROCESS: normal thought process Skin: COMMON NORMALS: no rashes or lesions noted, no jaundice, no petechiae and no mottling GENERAL SKIN EXAM: no rashes or lesions noted Data : 07/13/19 09:00 07/13/19 09:00 A&P Assessment and plan (1) Pulmonary emboli: -Presented with complaints of chest discomfort and shortness of breath, found to have an elevated d-dimer of 3.96 -CTA PE positive for multiple bilateral pulmonary emboli in lower lobes, right middle lobe, lingula and upper lobes. Noted evidence of right ventricular heart strain -Venous duplex and echo ordered -Started on anticoagulation with heparin drip -Monitor vital signs -Monitor respiratory status, supplemental oxygen as needed -Unclear what may have triggered VTE is no obvious risk factors at this time Status: Acute Qualifiers: Pulmonary embolism type: other Chronicity: acute Acute cor pulmonale presence: with acute cor pulmonale Qualified Code(s): I26.09 - Other pulmonary embolism with acute cor pulmonale Code(s): I26.99 - Other pulmonary embolism without acute cor pulmonale (2) Giant cell arteritis: -Patient has known giant cell arteritis, recently had bilateral temporal artery biopsies both of which were negative for evidence of arteritis -Has been following up with Dr. Smiley and -Is on a prednisone taper with methotrexate on board as a steroid sparing agent -Symptoms are well controlled; no evidence of ophthalmologic complications Status: Acute Code(s): M31.6 - Other giant cell arteritis Additional A&P Information -Chronic sinusitis, has been following up with ENT -Chronic bradycardia; baseline HR 50-60 range -hx of calcified R frontal lobe granuloma; has been following up with neurosurgery -hx of HLA-B27 inflammatory arthritis, enthesitis -Asthma -GERD; resume PPI -Chronic stress incontinence -regular diet as tolerated -GI ppx with PPI -no need for DVT ppx as on heparin drip -Dispo: home -Code status: FULL code -admit to ICU for closer monitoring given acute bilateral PE, need for supplemental oxygen and evidence of RV strain Attestations Medical Necessity Statement*: Josephine Cnotreras's hospital stay will require greater than 2 midnights for management of acute bilateral PE with evidence of right ventricular heart strain requiring monitoring of respiratory and cardiovascular status as well as initiation of anticoagulation. Time Spent in Patient Care: Greater than 35 minutes (>than 50% of time spent in counselling and/or direct pt care on unit) . Coding Level of Care Code Acute Aircraft Life Support Fitter for Krunal Piña Diagnoses Pulmonary emboli I26.09 Pulmonary embolism type: other Chronicity: acute Acute cor pulmonale presence: with acute cor pulmonale Giant cell arteritis M31.6
--- NOTE | 2019-07-13 15:06 | ECG_ITS ---
Measurements Intervals [place] Rate: 54 P: 67 HI: 143 QRS: 19 QRSD: 86 T: 37 QT: 456 QTc: 435 SINUS BRADYCARDIA POSSIBLE ANTERIOR MYOCARDIAL INFARCTION [30 ms Q WAVE IN V3/V4, OR R < 0.2 mV IN V4], OF INDETERMINATE AGE INFERIOR MYOCARDIAL INFARCTION [40+ ms Q WAVE AND/OR ST/T ABNORMALITY IN II/aVF], PROBABLY OLD Compared to ECG 07/13/2019 11:00:43 Myocardial infarct finding now present Electronically Signed On 07-14-2019 9:14:39 MATERIAL HANDLING SUPERVISOR by Robert Martinez M.D. [email or web address]
[2019-07-13 15:33] LABS: Troponin 5 6HR 54.08 ng/mL (0-10)
[2019-07-13 19:41] LABS: Partial Thromboplastin Time > 250.0 SECONDS (23.9-36.7)
[2019-07-13 22:14] LABS: Partial Thromboplastin Time 191.7 SECONDS (23.9-36.7)
[2019-07-13] MEDS: atorvastatin 40 mg Tablet 20 MG PO (22:54)
[2019-07-14] VITALS (26 sets, daily range): BP systolic 103–152; BP diastolic 66–90; PULSE 58–106; RESP 22; TEMP 36.6–37.2; O2SAT 81–96
[2019-07-14 01:20] LABS: Partial Thromboplastin Time 41.6 SECONDS (23.9-36.7)
[2019-07-14 05:26] LABS: Basophils % 0.4 %; Eosinophils # 0.1 10^3/uL (0.0-0.8); Eosinophils % 1.3 %; Hemoglobin 12.4 g/dL (11.5-15.3); Lymphocytes # 1.7 10^3/uL (0.8-4.8); Mean Corpuscular HGB Conc 33.5 g/dL (30.0-36.0); Mean Corpuscular Hemoglobin 31.3 pg (28.0-34.0); Mean Corpuscular Volume 93.4 fL (81-99); Mean Platelet Volume 9.2 fL (7.4-10.4); Monocytes # 0.7 10^3/uL (0.2-0.9); Monocytes % 7.5 %; Neutrophils # 6.5 10^3/uL (1.8-7.7); Neutrophils % 71.3 %; Nucleated Red Blood Cells % 0 %; Platelet Count 233 10^3/cmm (130-400); Red Blood Count 3.96 10^6/uL (4.1-5.3); Red Cell Distribution Width 14.5 % (12.1-15.1); White Blood Count 9.1 10^3/uL (4.0-10.0)
[2019-07-14 05:44] LABS: Alanine Aminotransferase 19 U/L (0-33); Albumin Level 3.2 g/dL (3.5-5.2); Alkaline Phosphatase 55 IU/L (35-105); Anion Gap 15.8 (5-19); Aspartate Amino Transferase 20 U/L (0-32); Blood Urea Nitrogen 18 mg/dL (8-23); Calcium 9.2 mg/dL (8.5-10.5); Carbon Dioxide 25 mmol/L (22-29); Chloride 99 mmol/L (98-107); Globulin 3.2 g/dL (1.3-4.6); Glucose 102 mg/dL (65-115); Potassium 3.8 mmol/L (3.5-5.1); Sodium 136 mmol/L (136-145); Total Bilirubin 0.7 mg/dL (0.15-1.2); Total Protein 6.4 g/dL (6.6-8.7)
[2019-07-14 07:47] LABS: Partial Thromboplastin Time 117.3 SECONDS (23.9-36.7)
[2019-07-14] MEDS: aspirin 81 mg EC Tablet PO (09:32)
[2019-07-14] MEDS: folic acid 1 mg Tablet PO (09:32)
[2019-07-14] MEDS: pantoprazole DR 40 mg Tablet PO (09:32)
[2019-07-14] MEDS: escitalopram 10 mg Tablet PO (09:32)
[2019-07-14] MEDS: fluticasone nasal spray 16gm Btl 2 SPRAY NASAL (09:33)
--- NOTE | 2019-07-14 10:03 | P.PN_ITS ---
Subjective Subjective: Interval history: Vital signs stable, down to 2 L nasal cannula. Continues anticoagulation with heparin drip, most recent PTT is 117.3. Echo noted, venous duplex results pending. Patient seen and examined, family at bedside, updated on labs and echo report. She is resting comfortably in bed, no noted distress, no acute overnight events reported. Reviewed PTT results. Discussed possible transition to oral anticoagulation tomorrow which she is agreeable to. Vitals/I&O/Wt Last Vital Signs Temp 97.9 F 07/14/19 03:00 Pulse 91 07/14/19 08:00 Resp 20 H 07/13/19 18:30 BP 120/78 07/14/19 07:00 Pulse Ox 92 07/14/19 08:00 07/13/19 07/14/19 07/14/19 22:59 06:59 14:59 Intake Total 1000 / 1000 500.753 / 1500.753 479.247 / 479.247 Output Total 1300 / 1300 Balance -300 / -300 500.753 / 200.753 479.247 / 479.247 Weight last 48 hrs Weight 79.832 kg Physical Exam Const: COMMON NORMALS: no apparent distress and oriented x3 GENERAL APPEARANCE: cooperative, comfortable, well kempt and well developed ORIENTATION/CONSCIOUSNESS: Yes awake HENMT: COMMON NORMALS: normocephalic, head/scalp atraumatic, hearing grossly normal bilaterally and moist oral mucous membranes HEAD & SCALP: normocephalic and atraumatic Eye: COMMON NORMALS: PERRL, EOMs intact bilaterally and conjunctivae normal CONJUNCTIVA: Yes conjunctivae normal PUPIL: Yes PERRL Neck/C-Spine: COMMON NORMALS: full ROM GENERAL: Yes normal visual inspection and Yes trachea midline Resp: COMMON NORMALS: normal respiratory effort, no retractions, no use of accessory muscles and clear to auscultation bilaterally EFFORT & INSPECTION: Yes able to speak in complete sentences, Yes symmetric chest movement and No tachypneic AUSCULTATION: clear to auscultation bilaterally OTHER: -on 2 L NC, saturating at 94% Cardio: COMMON NORMALS: regular rate, regular rhythm, S1 normal heart sound, S2 normal heart sound and no murmurs RATE: regular rate RHYTHM: regular rhythm HEART SOUNDS: S1 normal and S2 normal GI: COMMON NORMALS: normal to inspection, nondistended, normoactive bowel sounds, soft to palpation and non-tender PALPATION: Yes soft Extremity: COMMON NORMALS: normal to inspection, full ROM and no clubbing, cyanosis or edema; negative for no pedal edema GENERAL: No calf tenderness (negative Alfreda's sign bilaterally) Neuro: COMMON NORMALS: oriented x3, moves all extremities, no focal motor deficits and no sensory deficits noted Psych: COMMON NORMALS: mental status grossly normal, thought process normal, cooperative, affect normal and speech normal APPEARANCE: Yes well kempt SPEECH: Yes normal speech THOUGHT PROCESS: normal thought process Skin: COMMON NORMALS: no rashes or lesions noted, no jaundice, no petechiae and no mottling GENERAL SKIN EXAM: no rashes or lesions noted Data : 07/14/19 05:06 07/14/19 05:06 A&P Assessment and plan (1) Pulmonary emboli: -Presented with complaints of chest discomfort and shortness of breath, found to have an elevated d-dimer of 3.96 -CTA PE positive for multiple bilateral pulmonary emboli in lower lobes, right middle lobe, lingula and upper lobes. Noted evidence of right ventricular heart strain -Venous duplex done, pending report -Echo: EF=70%, mild LVH, no RWMA, severe pulmonary HTN (72), mildly increased right atrial size, normal RV size, moderate to severe TR -Started on anticoagulation with heparin drip; may consider transition to Eliquis once work-up complete -VSS: continue to monitor -continue to monitor respiratory status, supplemental oxygen as needed; not oxygen dependent at baseline -Unclear what may have triggered VTE is no obvious risk factors at this time Status: Acute Code(s): I26.99 - Other pulmonary embolism without acute cor pulmonale (2) Giant cell arteritis: -Patient has known giant cell arteritis, recently had bilateral temporal artery biopsies both of which were negative for evidence of arteritis -Has been following up with Dr. Smiley and -Is on a prednisone taper with methotrexate on board as a steroid sparing agent; resume home dose prednisone -Symptoms are well controlled; no evidence of ophthalmologic complications Status: Acute Code(s): M31.6 - Other giant cell arteritis Additional A&P Information -Chronic sinusitis, has been following up with ENT -Chronic bradycardia; baseline HR 50-60 range -hx of calcified R frontal lobe granuloma; has been following up with neurosur blanquita -hx of HLA-B27 inflammatory arthritis, enthesitis -Asthma -GERD; resume PPI -Chronic stress incontinence -regular diet as tolerated -GI ppx with PPI -no need for DVT ppx as on heparin drip -Dispo: home -Code status: FULL code Attestations Medical Necessity Statement*: Patient requires hospitalization for continued management of bilateral PE, pending completion of work-up and on therapeutic anticoagulation. Time Spent in Patient Care: Greater than 35 minutes (>than 50% of time spent in counselling and/or direct pt care on unit) . Coding Level of Care Code Acute Sewer System Supervisor for Chg Fwd Exam Detailed Diagnoses Pulmonary emboli I26.99 Giant cell arteritis M31.6
[2019-07-14 14:55] LABS: Partial Thromboplastin Time 104.5 SECONDS (23.9-36.7)
[2019-07-14] MEDS: predniSONE 5 mg Tablet 17.5 MG PO (15:44)
[2019-07-14] MEDS: heparin drip 25,000 UNIT/500 ML PREMIX 12 UNIT IV (15:45)
[2019-07-14] MEDS: atorvastatin 40 mg Tablet 20 MG PO (20:26)
[2019-07-14 22:45] LABS: Partial Thromboplastin Time 55.7 SECONDS (23.9-36.7)
[2019-07-15] VITALS (14 sets, daily range): BP systolic 97–140; BP diastolic 72–83; PULSE 59–85; RESP 18; TEMP 36.6–36.8; O2SAT 92–98
[2019-07-15 05:33] LABS: Platelet Count 243 10^3/cmm (130-400)
[2019-07-15 05:45] LABS: Partial Thromboplastin Time 54.1 SECONDS (23.9-36.7)
[2019-07-15] MEDS: folic acid 1 mg Tablet PO (08:54)
[2019-07-15] MEDS: escitalopram 10 mg Tablet PO (08:54)
[2019-07-15] MEDS: aspirin 81 mg EC Tablet PO (08:54)
[2019-07-15] MEDS: predniSONE 5 mg Tablet 17.5 MG PO (08:54)
[2019-07-15] MEDS: fluticasone nasal spray 16gm Btl 2 SPRAY NASAL (08:55)
[2019-07-15] MEDS: pantoprazole DR 40 mg Tablet PO (08:55)
--- NOTE | 2019-07-15 11:01 | P.PN_ITS ---
Subjective Subjective: Interval history: Remains on 2 L nasal cannula, will discontinue heparin drip and start on Eliquis. No complaints, at bedside, answered questions about Eliquis including cost and duration of treatment. Will transfer patient to floor for continued care. Medications: Reviewed: Yes Medication Review Details: Current Medications Generic Name Dose Route Start Last Admin Trade Name Monica PRN Reason Stop Dose Admin Aspirin 81 mg 07/14/19 09:00 07/15/19 08:54 Aspirin Ec PO 81 mg DAILY SABA Administration Atorvastatin Calci um 20 mg 07/13/19 21:00 07/14/19 20:26 Lipitor PO 20 mg BEDTIME SABA Administration Escitalopram Oxala te 10 mg 07/14/19 09:00 07/15/19 08:54 Lexapro PO 10 mg DAILY SABA Administration Fluticasone Propio laura 2 spray 07/14/19 09:00 07/15/19 08:55 Flonase NASAL 2 spray DAILY SABA Administration Folic Acid 1 mg 07/14/19 09:00 07/15/19 08:54 Folic Acid PO 1 mg DAILY SABA Administration Pantoprazole Sodiu m 40 mg 07/14/19 09:00 07/15/19 08:55 Protonix PO 40 mg DAILY SABA Administration Prednisone 17.5 mg 07/14/19 15:30 07/15/19 08:54 Prednisone PO 17.5 mg DAILY SABA Administration Vitals/I&O/Wt Last Vital Signs Temp 97.9 F 07/15/19 08:27 Pulse 79 07/15/19 10:00 Resp 18 07/15/19 10:00 BP 122/74 07/15/19 10:00 Pulse Ox 92 07/15/19 10:00 07/14/19 07/15/19 07/15/19 22:59 06:59 14:59 Intake Total 360 / 1079.247 410.4 / 1489.647 240 / 240 Balance 360 / 1079.247 410.4 / 1489.647 240 / 240 Physical Exam Const: COMMON NORMALS: no apparent distress and oriented x3 GENERAL APPEARANCE: cooperative, comfortable, well kempt and well developed OR IENTATION/CONSCIOUSNESS: Yes awake HENMT: COMMON NORMALS: normocephalic, head/scalp atraumatic, hearing grossly normal bilaterally and moist oral mucous membranes HEAD & SCALP: normoc ephalic and atraumatic Eye: COMMON NORMALS: PERRL, EOMs intact bilaterally and conjunctivae normal CONJUNCTIVA: Yes conjunctivae normal PUPIL: Yes PERRL Neck/C-Spine: COMMON NORMALS: full ROM GENERAL: Yes normal visual inspection and Yes trachea midline Resp: COMMON NORMALS: normal respiratory effort, no retractions, no use of accessory muscles and clear to auscultation bilaterally EFFORT & INSPECTION: Yes able to speak in complete sentences, Yes symmetric chest movement and No tachypneic AUSCULTATION: clear to auscultation bilaterally OTHER: -on 2 L NC, saturating at 94% Cardio: COMMON NORMALS: regular rate, regular rhythm, S1 normal heart sound, S2 normal heart sound and no murmurs RATE: regular rate RHYTHM: regular rhythm HEART SOUNDS: S1 normal and S2 normal GI: COMMON NORMALS: normal to inspection, nondistended, normoactive bowel sounds, soft to palpation and non-tender PALPATION: Yes soft Extremity: COMMON NORMALS: normal to inspection, full ROM and no clubbing, cyanosis or edema; negative for no pedal edema GENERAL: No calf tenderness (negative Alfreda's sign bilaterally) Neuro: COMMON NORMALS: oriented x3, moves all extremities, no focal motor deficits and no sensory deficits noted Psych: COMMON NORMALS: mental status grossly normal, thought process normal, cooperative, affect normal and speech normal APPEARANCE: Yes well kempt SPEECH: Yes normal speech THOUGHT PROCESS: normal thought process Skin: COMMON NORMALS: no rashes or lesions noted, no jaundice, no petechiae and no mottling GENERAL SKIN EXAM: no rashes or lesions noted Data : 07/15/19 05:15 07/14/19 05:06 A&P Assessment and plan (1) Pulmonary emboli: -Presented with complaints of chest discomfort and shortness of breath, found to have an elevated d-dimer of 3.96 -CTA PE positive for multiple bilateral pulmonary emboli in lower lobes, right middle lobe, lingula and upper lobes. Noted evidence of right ventricular heart strain -Venous duplex negative for DVT in bilateral LE -Echo: EF=70%, mild LVH, no RWMA, severe pulmonary HTN (72), mildly increased right atrial size, normal RV size, moderate to severe TR -Started on anticoagulation with heparin drip; transition to Eliquis today -VSS: continue to monitor -continue to monitor respiratory status, supplemental oxygen as needed; not oxygen dependent at baseline -Unclear what may have triggered VTE is no obvious risk factors at this time Status: Acute Code(s): I26.99 - Other pulmonary embolism without acute cor pulmonale (2) Giant cell arteritis: -Patient has known giant cell arteritis, recently had bilateral temporal artery biopsies both of which were negative for evidence of arteritis -Has been following up with Dr. Smiley and -Is on a prednisone taper with methotrexate on board as a steroid sparing agent; resume home dose prednisone -Symptoms are well controlled; no evidence of ophthalmologic complications Status: Acute Code(s): M31.6 - Other giant cell arteritis Additional A&P Information -Chronic sinusitis, has been following up with ENT -Chronic bradycardia; baseline HR 50-60 range -hx of calcified R frontal lobe granuloma; has been following up with neurosurgery -hx of HLA-B27 inflammatory arthritis, enthesitis -Asthma -GERD; on PPI -Chronic stress incontinence -regular diet as tolerated -GI ppx with PPI -no need for DVT ppx as on therapeutic anticoagulation -Dispo: home -Code status: FULL code -transfer to floor for continued care Attestations Medical Necessity Statement*: Patient requires hospitalization for continued anticoagulation as treatment for bilateral PE, transitioning from heparin drip to Eliquis today. Time Spent in Patient Care: Greater than 35 minutes (>than 50% of time spent in counselling and/or direct pt care on unit) . Coding Level of Care Code Acute Film Replacement Orderer for [facility] Fwd Exam Comprehensive Diagnoses Pulmonary emboli I26.99 Giant cell arteritis M31.6
[2019-07-15] MEDS: apixaban 5 mg Tablet 10 MG PO ×2 (11:08→18:51)
--- NOTE | 2019-07-15 13:20 | PC.CHAP ---
Pastoral Care Encounter/Spiritual Assessment Type of Contact [] Declined field service technician poultry visit [] Patient/Family/Request visit [] Outpatient visit [] Follow-up visit [] Physician referral [] Code/Alert [x] Routine visit [] Staff referral [] Actively dying [] Patient sleeping [] Family support [] [] Out of room [] Palliative care [] [] Receiving care in room [] Pre-surgical visit [] Trauma [] Long length of stay [x] ICU visit [] Other: Relational/Emotional Strength [x] Patient feels connected with others/family/visitors/staff [] Distress [] Loneliness/isolation [] Abandonment Spirituality of Patient [] Person of Kelly [] Attends Mandaen of their Kelly [x] Believes in Prayer [] Reads Bible or Mormon materials [] There are Spiritual issues to be addressed Sales Lead Generator Interventions [x] Prayer [x] Active listening [x] Non-anxious presence [x] Spiritual/emotional support [] Crisis/trauma care [] Spiritual counseling [] Bereavement support [] Provided bereavement packet [] Provided Bible/devotional materials [] Provided toy/stuffed animal, coloring book to patient or family member [] Provided Communion [] Anointing/[place] [] Salvation [x] Completed spiritual assessment [] Other: Impact on Illness or Injury [] Angry [] Fearful [] Anxious [] Often cries [] Exhaustion [] Unable to work [] Unable to attend methodist [] Unable to walk/stand [] Unable to read [] Unable to drive [] Unable to eat/drink [] Unable to sleep [] Unable to be with family [] Patient intubated [] Other: Summary Patient expressed that she was being treated for blood clots in her chest. Sales Lead Generator prayed with her and her . Patient was visited by Sales Lead Generator Jose Guadalupe Lin Time spent with patient 6 minutes
--- NOTE | 2019-07-15 18:12 | PC.NURSE ---
Called report to Angelita Aquino RN at [phone]. Patient taken to room 276 bed 2. Call light in reach, oxygen hooked up on 2L. Patient resting in bed. Notified nurse patient was on floor.
--- NOTE | 2019-07-15 18:21 | PC.NURSE ---
Welcomed to Medsurg from ICU.. A&Ox4, lungs course, VSS on RA, Room and floor orientation provided. Pt responsible for all belongings. Denies needs at this time.
[2019-07-15] MEDS: atorvastatin 40 mg Tablet 20 MG PO (20:47)
[2019-07-16] VITALS (8 sets, daily range): BP systolic 115–144; BP diastolic 71–86; PULSE 57–84; RESP 20; TEMP 36.6–37.3; O2SAT 88–97
[2019-07-16] MEDS: escitalopram 10 mg Tablet PO (08:40)
[2019-07-16] MEDS: apixaban 5 mg Tablet 10 MG PO (08:40)
[2019-07-16] MEDS: predniSONE 5 mg Tablet 17.5 MG PO (08:40)
[2019-07-16] MEDS: folic acid 1 mg Tablet PO (08:40)
[2019-07-16] MEDS: fluticasone nasal spray 16gm Btl 2 SPRAY NASAL (08:40)
[2019-07-16] MEDS: aspirin 81 mg EC Tablet PO (08:40)
[2019-07-16] MEDS: pantoprazole DR 40 mg Tablet PO (08:40)
--- NOTE | 2019-07-16 09:55 | PC.SOCIAL ---
IMM Page 2 of IMM explained to and signed by patient. She verbalizes understanding. Initialed, dated, and timed and placed in chart. Copy provided to patient.
--- NOTE | 2019-07-16 11:29 | PM.DCS ---
Discharge Providers Date of Admission: 07/13/19 12:21 Date of Discharge: July 16, 2019 Attending Provider at Admission: Soha Marcelino MD Attending Provider at Discharge: Soha Marcelino MD Primary Care Provider: Lucio Carmona DO Diagnoses at Discharge Discharge Diagnosis (1) Pulmonary emboli: Status: Acute Problem details: -Presented with complaints of chest discomfort and shortness of breath, found to have an elevated d-dimer of 3.96 -CTA PE positive for multiple bilateral pulmonary emboli in lower lobes, right middle lobe, lingula and upper lobes. Noted evidence of right ventricular heart strain -Venous duplex negative for DVT in bilateral LE -Echo: EF=70%, mild LVH, no RWMA, severe pulmonary HTN (72), mildly increased right atrial size, normal RV size, moderate to severe TR -Started on anticoagulation with heparin drip; transition to Eliquis today -VSS: continue to monitor -continue to monitor respiratory status, supplemental oxygen as needed; not oxygen dependent at baseline -Unclear what may have triggered VTE is no obvious risk factors at this time other than rheumatological hx Qualifiers: Acute cor pulmonale presence: with acute cor pulmonale Chronicity: acute Pulmonary embolism type: unspecified Qualified Code(s): I26.09 - Other pulmonary embolism with acute cor pulmonale (2) Giant cell arteritis: Status: Acute Problem details: -Patient has known giant cell arteritis, recently had bilateral temporal artery biopsies both of which were negative for evidence of arteritis -Has been following up with Dr. Smiley and -Is on a prednisone taper with methotrexate on board as a steroid sparing agent; resume home dose prednisone -Symptoms are well controlled; no evidence of ophthalmologic complications Other Information Additional DC diagnoses/information: -Chronic sinusitis, has been following up with ENT -Chronic bradycardia; baseline HR 50-60 range -hx of calcified R frontal lobe granuloma; has been following up with neurosurgery -hx of HLA-B27 inflammatory arthritis, enthesitis -Asthma -GERD; on PPI -Chronic stress incontinence Reason for Visit Reason for Visit: Reason For Visit: SOB, Chest pain Hospital Course Hospital Course: Patient was initially admitted to ICU due to evidence of bilateral pulmonary emboli with evidence of right ventricular heart strain. She was started on anticoagulation with heparin drip which she was treated with for approximately 48 hours. She was oxygen dependent majority of her hospital stay, she does not use oxygen at baseline. We were able to wean her down to room air earlier this morning then had to resume it due to exertional hypoxia; she qualifies for 2 L NC; DME being set up. She was started on Eliquis for longer term anticoagulation once noted to be hemodynamically stable. I have had multiple discussions with patient and her family regarding anticoagulation, when to seek medical attention such as if noted bleeding from any site, duration for treatment. As part of her work-up she had an echo done which shows evidence of severe pulmonary hypertension as well as moderate to severe tricuspid regurgitation. Will be referred to pulmonology for further evaluation. Most obvious risk factor for VTE at this time is a rheumatological history. Discharge Summary: -Patient to follow-up with her primary care physician within 1 week -Patient to follow-up with Dr. Davis as soon as next available appointment for further evaluation of severe pulmonary hypertension. -Patient to continue to follow-up with Dr. Smiley and Dr. Roberts Physical Exam Const: COMMON NORMALS: no apparent distress and oriented x3 GENERAL APPEARANCE: cooperative, comfortable, well kempt and well developed ORIENTATION/CONSCIOUSNESS: Yes awake HENMT: COMMON NORMALS: normocephalic, head/scalp atraumatic, hearing grossly normal bilaterally and moist oral mucous membranes HEAD & SCALP: normocephalic and atraumatic Eye: COMMON NORMALS: PERRL, EOMs intact bilaterally and conjunctivae normal CONJUNCTIVA: Yes conjunctivae normal PUPIL: Yes PERRL Neck/C-Spine: COMMON NORMALS: full ROM GENERAL: Yes normal visual inspection and Yes trachea midline Resp: COMMON NORMALS: normal respiratory effort, no retractions, no use of accessory muscles and clear to auscultation bilaterally EFFORT & INSPECTION: Yes able to speak in complete sentences, Yes symmetric chest movement and No tachypneic AUSCULTATION: clear to auscultation bilaterally OTHER: -on RA, saturating at 94% Cardio: COMMON NORMALS: regular rate, regular rhythm, S1 normal heart sound, S2 normal heart sound and no murmurs RATE: regular rate RHYTHM: regular rhythm HEART SOUNDS: S1 normal and S2 normal GI: COMMON NORMALS: normal to inspection, nondistended, normoactive bowel sounds, soft to palpation and non-tender PALPATION: Yes soft Extremity: COMMON NORMALS: normal to inspection, full ROM and no clubbing, cyanosis or edema; negative for no pedal edema GENERAL: No calf tenderness (negative Alfreda's sign bilaterally) Neuro: COMMON NORMALS: oriented x3, moves all extremities, no focal motor deficits and no sensory deficits noted Psych: COMMON NORMALS: mental status grossly normal, thought process normal, cooperative, affect normal and speech normal APPEARANCE: Yes well kempt SPEECH: Yes normal speech THOUGHT PROCESS: normal thought process Skin: COMMON NORMALS: no rashes or lesions noted, no jaundice, no petechiae and no mottling GENERAL SKIN EXAM: no rashes or lesions noted Discharge Data Data Completed and Pending: Completed Studies During Hospitalization Category Date Time Status CT angio chest PE protcl [id number] Stat Cat Scan 07/13/19 11:01 Completed XR chest 1V heath ble [id number] Stat Exams 07/13/19 10:04 Completed CV echo complete* [id number] Urgent Ultrasound 07/13/19 12:04 [place] [id number] Urgent Ultrasound 07/13/19 12:10 Completed Vitals: Last Vital Signs Temp 98.1 F 07/16/19 08:00 Pulse 61 07/16/19 08:00 Resp 20 H 07/16/19 08:00 BP 115/71 07/16/19 08:00 Pulse Ox 94 07/16/19 08:00 Discharge Plan Discharge Patient Disposition: Home, Self-Care Condition: Stable Prescriptions: Harjinder Rodriguez DVT-PE Treat 30D Start 5 mg (74 tabs) tablets,dose pack See Rx Instructions .ROUTE .COMPLEX Qty: 74 RF: 0 Continued omeprazole 40 mg capsule,delayed release(DR/EC) 40 mg PO DAILY RF: 0 aspirin 81 mg tablet,delayed release (DR/EC) 81 mg PO DAILY RF: 0 prednisone 5 mg tablet See Rx Instructions PO DAILY Qty: 150 RF: 1 folic acid 1 mg tablet 1 mg PO DAILY Qty: 90 RF: 3 Systane (propylene glycol) 0.4-0.3 % Drops See Rx Instructions .ROUTE .COMPLEX RF: 0 Caltrate + D3 Plus Minerals 1 tab PO TID RF: 0 Coricidin HBP Cold-Multi Sympt 1 tab PO BID RF: 0 methotrexate sodium 2.5 mg tablet 10 mg PO Q7D RF: 0 simvastatin 20 mg tablet 20 mg PO DAILY RF: 0 fluticasone propionate 50 mcg/actuation spray,suspension 2 spray INTRANASAL DAILY PRN (Reason: Sinus Symptoms) RF: 0 escitalopram oxalate 10 mg tablet 10 mg PO DAILY RF: 0 levalbuterol tartrate 45 mcg/actuation HFA aerosol inhaler 2 puff INHALATION Q4H PRN (Reason: Shortness Of Breath) RF: 0 hydrocodone-acetaminophen [[place]] 5-325 mg tablet 1 tab PO Q6H PRN (Reason: pain) Qty: 7 RF: 0 Discharge Orders: Discharge Order (Routine); Ordered 07/16/19 Ordered By: Soha Marcelino Other Ambulatory Orders: DME: Oxygen (Order) Location: None Selected Ordered By: Soha Marcelino Referrals: [facility] [place] Sudhir Davis MD [Physician] - 07/30/19 9:30 am (Follow up on severe pulmonary HTN) Lucio Carmona DO [Primary Care Provider] - 07/22/19 1:30 pm (Post-hospital follow up, found to have bilateral PE, started on anticoagulation with Eliquis.) Discharge Diet: Regular Discharge Activity: Resume usual activity Patient Instructions: Anticoagulation Therapy, Apixaban (By mouth), Dysphonia, Giant Cell Arteritis, Pulmonary Embolism (DC), Pulmonary Embolism (GEN) Discharge Attestations Time Spent in Discharge Care*: greater than 30 min Specific Discharge Activities: Specific discharge activities: educating patient, educating and/or supporting family/caregiver, discussing with pcp/other providers, discussing with correctional counselor/case manager/social workers/dc planners, documenting/other paperwork and evaluating patient/reviewing data Status at Discharge: Cognitive status at discharge: cognitively intact, Behavioral status at discharge: cooperative, Functional status at discharge: independent ambulation Overall status at discharge: patient is back to baseline Quality Metrics Clinical Quality Measures During this hospital stay, did patient experience: VTE (bilateral PE) Contraindication to Overlap Therapy: Overlap treatment not indicated (started on treatment with Eliquis) VTE Discharge Education: Education about anticoagulant therapy/Care Notes given, Education about treatment options/disease process, Medication side effects education and Follow-up arranged Deep Vein Thrombosis/Pulmonary Embolism Present on Admission: Yes Coding Level of Care Code Acute Concession Attendant for g Fwd Exam Comprehensive Diagnoses Pulmonary emboli I26.09 Acute cor pulmonale presence: with acute cor pulmonale Chronicity: acute Pulmonary embolism type: unspecified Giant cell arteritis M31.6
== END 2019-07-16 16:42 | disposition home or self-care (01) | DRG 175 ==
LOC: ER 09:00 → ICU 12:41 → MEDSURG 07-15 18:13
PROVIDERS: Admitting Provider Family Medicine; Emergency Provider Family Medicine; Family Provider Internal Medicine; PCP Internal Medicine; Visit Provider Family Medicine
DX: I26.09 Other pulmonary embolism with acute cor pulmonale (principal); K21.9 Gastro-esophageal reflux disease without esophagitis; Z79.52 Long term (current) use of systemic steroids; Z79.899 Other long term (current) drug therapy; I10 Essential (primary) hypertension; J45.909 Unspecified asthma, uncomplicated; M31.6 Other giant cell arteritis; R00.1 Bradycardia, unspecified; J32.9 Chronic sinusitis, unspecified; N39.3 Stress incontinence (female) (male); Z79.891 Long term (current) use of opiate analgesic
CPT/HCPCS: 12345; 36415; 71045; 71275; 80053; 84484; 85025; 85049; 85378; 85730; 93005; 93306; 93970; 96375; 99283; J1644; J3490; J7512; Q9967

== ENCOUNTER 2019-07-30 11:54 | Outpatient (CLI) | payer MEDICARE, OTHER, SELFPAY ==
[2019-07-30 12:34] LABS: Bilirubin Urine Neg (NEGATIVE); Blood Urine 2+ (Negative); Glucose Urine UA Norm (Normal); Ketones Urine Negative (Negative); Leukocyte Esterase Urine 2+ (Negative); Nitrate Urine Positive (Negative); Protein Urine Neg (Negative); Sulfosalicylic Acid Urine Negative; Urine Appearance Hazy (CLEAR); Urine Color Straw (Yellow); Urobilinogen Urine Norm (Negative); pH Urine 8 (5-7)
[2019-07-30 12:35] LABS: Squamous Epithelial Cell Urine 0-4 (0-5); WBC Urine 15-25 /hpf (0-5)
[2019-07-30 12:37] LABS: Add Urine Culture? Yes; Bacteria Urine 2+
[2019-07-30 12:41] LABS: Anion Gap 16.7 (5-19); Blood Urea Nitrogen 15 mg/dL (8-23); Calcium 9.8 mg/dL (8.5-10.5); Carbon Dioxide 29 mmol/L (22-29); Chloride 96 mmol/L (98-107); Glucose 132 mg/dL (65-115); Osmolality Calculated 282 mOsm/kg (285-295); Potassium 4.67; Sodium 137 mmol/L (136-145)
== END 2019-07-30 11:55 | disposition home or self-care (01) ==
LOC: LAB 12:00
PROVIDERS: Family Provider Internal Medicine; PCP Internal Medicine; Visit Provider Internal Medicine Critical Care Medicine
DX: R30.0 Dysuria (principal)
CPT/HCPCS: 36415; 80048; 81001

== ENCOUNTER → 2019-08-05 14:26 | Outpatient (BNVA) | payer MEDICARE, OTHER, SELFPAY | PROVIDERS: Family Provider Internal Medicine; PCP Internal Medicine; Visit Provider Internal Medicine Rheumatology | DX: H57.13 Ocular pain, bilateral (principal); Z79.899 Other long term (current) drug therapy; K21.9 Gastro-esophageal reflux disease without esophagitis; I26.09 Other pulmonary embolism with acute cor pulmonale; Z15.89 Genetic susceptibility to other disease; D32.0 Benign neoplasm of cerebral meninges | CPT/HCPCS: 99214 ==

== ENCOUNTER → 2019-09-05 08:58 | Outpatient (BNVA) | payer MEDICARE, OTHER, SELFPAY | PROVIDERS: Family Provider Internal Medicine; PCP Internal Medicine; Visit Provider Internal Medicine Rheumatology | DX: H57.13 Ocular pain, bilateral (principal); Z79.899 Other long term (current) drug therapy; K21.9 Gastro-esophageal reflux disease without esophagitis; I26.09 Other pulmonary embolism with acute cor pulmonale; Z15.89 Genetic susceptibility to other disease; D32.0 Benign neoplasm of cerebral meninges | CPT/HCPCS: 36415; 80076; 82565; 85025; 85651; 86140; 99213 ==

== ENCOUNTER 2019-10-10 13:25 | Outpatient (CLI) | payer MEDICARE, OTHER, SELFPAY ==
--- NOTE | 2019-10-10 13:30 | USCV_ITS ---
Josephine Contreras Age: 79 Gender: F : 1940 Exam Date: 10/10/2019 13:49 Ordering Phys: Sudhir Davis MD Technologist: Tiara Trejo Exam Location: [facility] – [place], [place] Indication: PE BP: / HR: 62 Rhythm: Sinus Technical Quality: Adequate MEASUREMENTS (Male / Female) Normal Values 2D ECHO LV Diastolic Diameter PLAX 4.0 cm 4.2 - 5.9 / 3.9 - 5.3 cm LV Systolic Diameter PLAX 2.4 cm LV Chamber Size 3.5 cm IVS Diastolic Thickness 1.3 cm 0.6 - 1.0 / 0.6 - 0.9 cm IVS Systolic Thickness 1.6 cm LVPW Diastolic Thickness 2.3 cm 0.6 - 1.0 / 0.6 - 0.9 cm LVPW Systolic Thickness 2.7 cm RV Chamber Size 2.6 cm LVOT Diameter 2.0 cm LV Ejection Fraction 2D Teich 71.6 % LV Ejection Fraction MOD 2C 49.1 % LV Ejection Fraction 2C AL 49.9 % LA Diameter 4.3 cm Aorta at Sinotubular Diameter 2.3 cm M-MODE LV Diastolic Diameter MM 5.1 cm 4.2 - 5.9 / 3.9 - 5.3 cm LV Systolic Diameter MM 3.2 cm LV Ejection Fraction MM Teich 66.5 % IVS Diastolic Thickness MM 1.3 cm 0.6 - 1.0 / 0.6 - 0.9 cm IVS Systolic Thickness MM 1.7 cm LVPW Diastolic Thickness MM 1.1 cm 0.6 - 1.0 / 0.6 - 0.9 cm LVPW Systolic Thickness MM 1.5 cm Aortic Annulus Diameter 3.2 cm LA Ao Ratio MM 1.4 MV E Point Septal Separation 1.3 cm DOPPLER AV Peak Velocity 149.0 cm/s LVOT Peak Velocity 132.0 cm/s AV Area Cont Eq vti 2.5 cm squared AV Area Cont Eq pk 2.8 cm squared MV Area PHT 2.9 cm squared Mitral E to A Ratio 0.8 MV E' Velocity 10.0 cm/s Mitral E to MV E' Ratio 7.8 Mitral E to LV E' Lateral Ratio 8.5 Mitral E to LV E' Septal Ratio 7.2 TR Peak Velocity 276.0 cm/s TR Peak Gradient 30.5 mmHg TV Peak E Velocity 50.0 cm/s Right Atrial Pressure 3.0 mmHg Pulmonary Artery Systolic Pressu 33.5 mmHg PV Peak Velocity 101.0 cm/s RV Acceleration Time 0.2 s RV Ejection Time 0.4 s RV AcT/ET 0.4 FINDINGS Left Ventricle Normal left ventricular cavity size. Normal left ventricular systolic function. No regional wall motion abnormalities. Left ventricular ejection fraction is estimated at 60 %. Grade I/IV diastolic dysfunction (abnormal relaxation filling pattern), normal to mildly elevated filling pressures. Right Ventricle The right ventricle is normal in size and function. Right Atrium The right atrium is normal in size. Left Atrium The left atrium is normal in size. Mitral Valve Moderately thickened mitral valve. Moderate mitral annular calcification. No mitral valve stenosis. No mitral valve regurgitation. Aortic Valve Moderate aortic valve calcification. No aortic valve stenosis. No aortic valve regurgitation. Tricuspid Valve Structurally normal tricuspid valve without significant stenosis or regurgitation. Pulmonary artery systolic pressure is normal. Pulmonic Valve Structurally normal pulmonic valve without significant stenosis. There is no pulmonic regurgitation. Pericardium Normal pericardium without effusion. Aorta Normal ascending aorta dimension. CONCLUSIONS 1-Normal left ventricular cavity size. Normal left ventricular systolic function. No regional wall motion abnormalities. Left ventricular ejection fraction is estimated at 60 %. Grade I/IV diastolic dysfunction (abnormal relaxation filling pattern), normal to mildly elevated filling pressures. 2-Moderately thickened mitral valve. Moderate mitral annular calcification. No mitral valve stenosis. No mitral valve regurgitation. 3-Moderate aortic valve calcification. No aortic valve stenosis. No aortic valve regurgitation. 4-There is no pericardial effusion. 5-Pulmonary artery systolic pressure is within normal limits. 6-No significant change since the prior echocardiogram study of 07/13/2019. Yuly Snow MD (Electronically Signed) Final Date: 11 Oct 2019 19:36 S
== END 2019-10-10 13:26 | disposition home or self-care (01) ==
PROVIDERS: PCP Internal Medicine; Visit Provider Internal Medicine Critical Care Medicine
DX: I26.99 Other pulmonary embolism without acute cor pulmonale (principal); I08.0 Rheumatic disorders of both mitral and aortic valves
CPT/HCPCS: 93306

== ENCOUNTER → 2019-10-14 10:12 | Outpatient (BNVA) | payer MEDICARE, OTHER, SELFPAY | PROVIDERS: PCP Internal Medicine; Visit Provider Internal Medicine Rheumatology | DX: Z79.899 Other long term (current) drug therapy (principal) | CPT/HCPCS: 36415; 82565; 84520 ==

== ENCOUNTER 2019-10-23 08:05 | Outpatient (CLI) | payer MEDICARE, OTHER, SELFPAY ==
--- NOTE | 2019-10-23 08:17 | MM_ITS ---
WS: [id number] BILATERAL DIGITAL SCREENING MAMMOGRAPHY WITH CAD CLINICAL INFORMATION: SCREEN HISTORY: Screening mammogram. No current complaints. COMPARISON: May 11, 2016 TECHNIQUE: Bilateral CC and MLO views. FINDINGS: The breasts are composed of heterogeneous fibroglandular density tissue, which can limit the detectio n of small underlying mass lesions. No suspicious mass, asymmetry, calcifications, or architectural d istortion. No evidence of malignancy. Punctate calcifications. MM/[place] [id number] IMPRESSION: BI-RADS: 2-Benign FOLLOW UP: 1 Year Follow-up Recommend return to annual screening mammography.
== END 2019-10-23 08:06 | disposition home or self-care (01) ==
LOC: RADSHAW 08:10
PROVIDERS: PCP Internal Medicine; Visit Provider Internal Medicine
DX: Z12.31 Encounter for screening mammogram for malignant neoplasm of breast (principal)
CPT/HCPCS: 77067

== ENCOUNTER → 2019-11-27 15:57 | Outpatient (BNVA) | payer MEDICARE, OTHER, SELFPAY | PROVIDERS: PCP Internal Medicine; Visit Provider Internal Medicine Rheumatology | DX: M19.041 Primary osteoarthritis, right hand (principal); M19.042 Primary osteoarthritis, left hand; M31.6 Other giant cell arteritis; Z79.899 Other long term (current) drug therapy; K21.9 Gastro-esophageal reflux disease without esophagitis; Z79.52 Long term (current) use of systemic steroids | CPT/HCPCS: 36415; 80076; 82565; 85025; 85651; 86140; 99214 ==

== ENCOUNTER 2019-12-16 15:03 | Outpatient (CLI) | payer MEDICARE, OTHER, SELFPAY ==
--- NOTE | 2019-12-16 15:15 | XR_ITS ---
WS: [id number] SCREENING DEXA SCAN [employer] CLINICAL INFORMATION: chronic steroid use COMPARISON: FINDINGS: The L1-L4 bone mineral density measures 1.104 g/cm2. This corresponds to a T score score of -0.6 and Z score of 0.7. Left femoral neck bone mineral density measures 0.904 g/cm2. This corresponds to a T score of -0.8 an d Z score of 0.8. Right femoral neck bone mineral density measures 0.876 g/cm2. This corresponds to a T score -1.0of an d Z score of 0.6. Mean femoral neck bone mineral density measures 0.890 g/cm2. This corresponds to a T score of -0.9 an d Z score of 0.7. XR/XR DEXA axial skeleton* [id number] IMPRESSION: Osteopenia at the lower end of the range. Patient's FRAX calculated 10 year probability for major osteoporotic fracture i s 28.0 % and osteoporotic hip fracture is 6.9%.
== END 2019-12-16 15:04 | disposition home or self-care (01) ==
LOC: RADWPI 15:06
PROVIDERS: Family Provider Internal Medicine; PCP Internal Medicine; Visit Provider Internal Medicine Rheumatology
DX: Z79.52 Long term (current) use of systemic steroids (principal); M85.89 Other specified disorders of bone density and structure, multiple sites
CPT/HCPCS: 77080

== ENCOUNTER → 2020-03-30 08:45 | Outpatient (BNVA) | payer MEDICARE, OTHER, SELFPAY | PROVIDERS: Family Provider Internal Medicine; PCP Internal Medicine; Visit Provider Internal Medicine Rheumatology | DX: Z86.79 Personal history of other diseases of the circulatory system (principal); Z79.899 Other long term (current) drug therapy; Z15.89 Genetic susceptibility to other disease; H57.13 Ocular pain, bilateral; I26.94 Multiple subsegmental thrombotic pulmonary emboli without acute cor pulmonale; J32.9 Chronic sinusitis, unspecified; D32.0 Benign neoplasm of cerebral meninges; R51.9 Headache, unspecified; K21.9 Gastro-esophageal reflux disease without esophagitis; Z79.52 Long term (current) use of systemic steroids; Z77.22 Contact with and (suspected) exposure to environmental tobacco smoke (acute) (chronic) | CPT/HCPCS: 36415; 80076; 82306; 82565; 85025; 85651; 86140; 99214 ==

== ENCOUNTER → 2020-04-13 10:49 | Outpatient (BNVA) | payer MEDICARE, OTHER, SELFPAY | PROVIDERS: Family Provider Internal Medicine; PCP Internal Medicine; Visit Provider Internal Medicine Rheumatology | DX: Z79.899 Other long term (current) drug therapy (principal) | CPT/HCPCS: 36415; 80076; 82565; 85025; 85651; 86140 ==

== ENCOUNTER → 2020-05-04 14:33 | Outpatient (BNVA) | payer MEDICARE, OTHER, SELFPAY | PROVIDERS: Family Provider Internal Medicine; PCP Internal Medicine; Visit Provider Nurse Practitioner Family | DX: N39.0 Urinary tract infection, site not specified (principal); N39.41 Urge incontinence | CPT/HCPCS: 81003 ==

== ENCOUNTER → 2020-05-25 14:43 | Outpatient (BNVA) | payer MEDICARE, OTHER, SELFPAY | PROVIDERS: Family Provider Internal Medicine; PCP Internal Medicine; Visit Provider Nurse Practitioner Family | DX: N39.0 Urinary tract infection, site not specified (principal) | CPT/HCPCS: 81003 ==

== ENCOUNTER 2020-06-11 08:49 | Outpatient (CLI) | payer MEDICARE, OTHER, SELFPAY ==
--- NOTE | 2020-06-11 09:00 | CT_ITS ---
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 Additional edmond ging performed at 2.5 mm axial images status post IV contrast. Bone and soft tissue windows are revie wed. All CT scans at [facility] use at least one of these dose optimization techniques: a utomated exposure control; mA and/or kV adjustment per patient size (includes targeted exams where do se is matched to clinical indication); or iterative reconstruction. CONTRAST: Omnipaque 300; 95 mL IV. DLP: 1984.08 mGycm COMPARISON: 05/24/2019 and 09/19/2018 No acute intracranial hemorrhage, edema or midline shift. Stable calcified dural based mass measuring 14 x 15 mm towards the RIGHT frontal vertex. This mass has been previously described. No soft tissue component is evident. This is probably a meningioma. No adjacent cerebral edema or midline displacem ent. Very mild cerebral atrophy and small vessel ischemic disease. No enhancing mass or vascular malformations identified. Dural venous sinuses are normally enhancing. Visualized hoopa of [place] is unremarkable. Paranasal sinuses as visualized: Clear. Mastoid air cells: Clear. Calvarium and scalp: Intact. CT/CT head wo/w con [id number] IMPRESSION: 1. No change in the calcified mass involving the RIGHT frontal dural margin. S table over multiple prior years and consistent with a meningioma. 2. No enhancing masses. 3. Mild cerebral atrophy and chronic ischemic disease.
[2020-06-11 09:36] LABS: Blood Urea Nitrogen 22 mg/dL (8-23)
[2020-06-11] MEDS: iohexol 300 mg/mL 100 mL Btl IV (09:46)
== END 2020-06-11 08:50 | disposition home or self-care (01) ==
LOC: RADWPI 08:54
PROVIDERS: PCP Internal Medicine; Visit Provider Specialist
DX: D32.0 Benign neoplasm of cerebral meninges (principal); I67.82 Cerebral ischemia; G31.9 Degenerative disease of nervous system, unspecified
CPT/HCPCS: 70470; 82565; 84520; Q9967

== ENCOUNTER 2020-07-24 10:46 | Outpatient (CLI) | payer MEDICARE, OTHER, SELFPAY ==
--- NOTE | 2020-07-24 11:00 | USCV_ITS ---
Josephine Contreras Age: 80 Gender: F : 1940 Exam Date: 07/24/2020 11:10 Ordering Phys: Sudhir Davis MD Technologist: Tiara Trejo Exam Location: [facility] – [place]_ Indication: EDEMA HISTORY: Lower extremity edema. PROCEDURES: Venous duplex imaging was performed in bilateral lower extremities. The following venous structures were evaluated: common femoral vein, profunda vein, proximal portion of the greater saphenous vein, superficial femoral vein, and the popliteal vein. In addition, the posterior tibial and peroneal trunk were evaluated. Serial compression, augmentation maneuvers, and spectral Doppler flow evaluation were performed. FINDINGS: Normal 2-D Doppler and augmentation and compressibility throughout the lower extremity venous structures. Additional imaging through the proximal calf veins also reveals no thrombus. Limited evaluation of the greater saphenous vein is patent with no thrombus.. CONCLUSIONS No evidence of right lower extremity DVT. No evidence of left lower extremity DVT. Jhonatan Appiah MD (Electronically Signed) Final Date: 24 July 2020 12:32 S
== END 2020-07-24 10:47 | disposition home or self-care (01) ==
LOC: US 10:48
PROVIDERS: PCP Internal Medicine; Visit Provider Internal Medicine Critical Care Medicine
DX: R60.0 Localized edema (principal)
CPT/HCPCS: 93970

== ENCOUNTER 2020-08-05 12:31 | Emergency (ER) | payer MEDICARE, OTHER, SELFPAY ==
[2020-08-05 12:57] VITALS: BP 140/84; PULSE 51; RESP 14; TEMP 36.5; O2SAT 97; BMI 29.9
--- NOTE | 2020-08-05 13:16 | ECG_ITS ---
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 Measurements Intervals [place] Rate: 50 P: 58 HI: 171 QRS: 2 QRSD: 88 T: 13 QT: 440 QTc: 405 Interpretive Statements SINUS BRADYCARDIA Compared to ECG 07/13/2019 16:26:33 Myocardial infarct finding no longer present Electronically Signed On 08-05-2020 18:42:45 UI LEAD DEVELOPER by Tami Morales M.D. [id number]
--- NOTE | 2020-08-05 13:55 | XR_ITS ---
WS: [id number] Portable AP upright chest, 08/05/2020 Clinical Data: chest pain Comparison: Portable chest, 07/13/2019. Findings: No nodules, masses or effusions are seen. The heart is normal. The pulmonary vascularity is not increased. No pneumonia or pneumothorax is seen. The aortic arch and descending aorta are tortuo us. XR/XR chest 1V portable [id number] Impression: Atherosclerosis.
[2020-08-05 14:02] VITALS: BP 157/82; PULSE 51; RESP 18; O2SAT 92
[2020-08-05 14:20] LABS: Basophils % 0.5 %; Eosinophils # 0.1 10^3/uL (0.0-0.8); Eosinophils % 0.7 %; Hematocrit 36.9 % (37.0-47.0); Hemoglobin 11.9 g/dL (11.5-15.3); Lymphocytes # 1.3 10^3/uL (0.8-4.8); Lymphocytes % 15.7 %; Mean Corpuscular HGB Conc 32.2 g/dL (30.0-36.0); Mean Corpuscular Hemoglobin 30.1 pg (28.0-34.0); Mean Corpuscular Volume 93.2 fL (81-99); Mean Platelet Volume 9.6 fL (7.4-10.4); Monocytes # 0.3 10^3/uL (0.2-0.9); Monocytes % 3.9 %; Neutrophils # 6.49 10^3/uL (1.8-7.7); Neutrophils % 78.8 %; Nucleated Red Blood Cells % 0 %; Platelet Count 283 10^3/cmm (130-400); Red Blood Count 3.96 10^6/uL (4.1-5.3); Red Cell Distribution Width 14.5 % (12.1-15.1); White Blood Count 8.2 10^3/uL (4.0-10.0)
[2020-08-05 14:35] LABS: Alanine Aminotransferase 18 U/L (0-33); Albumin Level 4.4 g/dL (3.5-5.2); Alkaline Phosphatase 63 IU/L (35-105); Anion Gap 13.5 (5-19); Aspartate Amino Transferase 24 U/L (0-32); Blood Urea Nitrogen 17 mg/dL (8-23); Calcium 9.5 mg/dL (8.5-10.5); Carbon Dioxide 28 mmol/L (22-29); Chloride 100 mmol/L (98-107); Globulin 2.8 g/dL (1.3-4.6); Glucose 99 mg/dL (65-115); Osmolality Calculated 286 mOsm/kg (285-295); Potassium 4.5 mmol/L (3.5-5.1); Sodium 137 mmol/L (136-145); Total Bilirubin 0.5 mg/dL (0.15-1.2); Total Protein 7.2 g/dL (6.6-8.7)
[2020-08-05 14:38] LABS: Troponin(5th) Baseline 8 ng/L (0-10)
--- NOTE | 2020-08-05 15:08 | W.ED.CHESTPA ---
HPI - Chest Pain General: Chief Complaint: Chest Pain Stated Complaint: Chest Pains Time Seen by Provider: 08/05/20 13:53 History of Present Illness: HPI narrative: 80-year-old female came into the emergency room with complaints of having chest pain. Stated began yesterday afternoon she is having short bursts of chest pain the last just 5 to 10 seconds it will happen at rest. Resolved spontaneously does seem to affect her left arm as well she not having any symptoms at the time she is seen she is not had any shortness of breath or diaphoresis with it she has had a little bit of nausea. Has had some dizziness as well no real vertiginous symptoms. 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 MD complaint: chest pain Pertinent past history: other (Previous PE) Onset (ago): day(s) Timing of current episode: episodic Prior episodes: Yes Onset: during rest Pain location: left chest Pain radiation: left arm, neck and left shoulder Severity: moderate Quality: heaviness Relieving factors: nothing Exacerbating factors: nothing Associated symptoms: Deny abdominal pain, diaphoresis, dyspnea, fever(s), leg edema, nausea, palpitations, sense of impending doom, syncope or vomiting Treatment prior to arrival: none Review of Systems Const: Denies: fever(s) or diaphoresis ENMT: Denies: throat pain, ear or mastoid pain, nasal discharge or nasal congestion Card: Denies: palpitations or syncope Resp: Denies: dyspnea GI: Denies: abdominal pain, nausea or vomiting : Denies: flank pain, difficulty voiding, dysuria, urinary frequency or urinary urgency Skin/Breast: Denies: rash or pruritus PFS ED PFSH: Medical History Asthma Bradycardia Cerebral meningioma Chronic sinusitis Deviated septum Dysphonia GERD (gastroesophageal reflux disease) Health education/counseling High risk medication use 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) Hypertension Immunization counseling Incomplete bladder emptying Memory loss Migraine Post-nasal drip Recurrent UTI (urinary tract infection) Retro-orbital pain of both eyes Sinusitis, maxillary, chronic Temporal headache Urgency incontinence Surgical History H/O hand surgery History of abdominal hysterectomy History of appendectomy History of biopsy of temporal artery History of bunionectomy of left great toe History of cataract extraction with lens replacement History of repair of rectocele Family History Father CHF (congestive heart failure) Mother Diabetes 3 SIBLINGS HAVE DIABETES WELL Mother Cancer Hypertension Brother No problems noted. Brother No problems noted. Brother AAA (abdominal aortic aneurysm) Sister AAA (abdominal aortic aneurysm) Cancer Father Heart attack Social History Smoking and tobacco status: never smoked Second hand smoke exposure: Yes ([id number]) Alcohol intake: current Alcohol intake frequency: holidays/special occasions only Alcohol type: wine Lives independently: Yes Household members: spouse Marital status: Current occupational status: retired History of recent travel: No Current gender identity: Female Physical Exam Const: COMMON NORMALS: no acute distress GENERAL APPEARANCE: cooperative and comfortable ORIENTATION/CONSCIOUSNESS: Yes awake, Yes oriented to person, Yes oriented to place and Yes oriented to time Neck/C-Spine: COMMON NORMALS: no JVD Resp: COMMON NORMALS: normal respiratory effort, No retractions, No use of accessory muscles and clear to auscultation bilaterally AUSCULTATION: clear to auscultation bilaterally Cardio: COMMON NORMALS: no JVD, regular rate, regular rhythm and No murmurs present (Cardio) RATE: regular rate RHYTHM: regular rhythm GI: COMMON NORMALS: Soft to palpation and No hepatosplenomegaly present AUSCULTATION: Yes normoactive bowel sounds PALPATION: Yes Soft to palpation, No Tenderness to palpation present (GI), No Guarding due to palpation present (GI) and Yes No hepatosplenomegaly present Extremity: COMMON NORMALS: normal to inspection, capillary refill normal, no clubbing, cyanosis or edema, no calf tenderness and no pedal edema Neuro: SENSORIUM/ORIENTATION: Yes oriented to person, Yes oriented to place and Yes oriented to time Skin: COMMON NORMALS: no rashes or lesions noted GENERAL SKIN EXAM: no rashes or lesions noted Course Vital Signs: Vital signs: Vital Signs Temperature 97.7 F 08/05/20 12:57 Pulse Rate 53 L 08/05/20 17:13 Respiratory Rate 20 H 08/05/20 17:13 Blood Pressure 155/80 08/05/20 17:13 Pulse Oximetry 96 08/05/20 17:13 MDM - Chest Pain MDM Narrative: Medical decision making narrative: Reviewed findings with the patient. Troponins negative EKG is cher acute we will start her on isosorbide mononitrate 30 mg daily have her follow-up with outpatient stress testing if has worsening or change symptoms return. Lab Data: Labs: Lab Results 08/05/20 08/05/20 08/05/20 Range/Units 14:11 14:11 14:11 WBC 8.2 (4.0-10.0) 10^3/ uL RBC 3.96 L (4.1-5.3) 10^6/u L Hgb 11.9 (11.5-15.3) g/dL Hct 36.9 L (37.0-47.0) % MCV 93.2 (81-99) fL MCH 30.1 (28.0-34.0) pg MCHC 32.2 (30.0-36.0) g/dL RDW 14.5 (12.1-15.1) % Plt Count 283 (130-400) 10^3/c mm MPV 9.6 (7.4-10.4) fL Neut % (Auto) 78.8 % Lymph % (Auto) 15.7 % Page % (Auto) 3.9 % Eos % (Auto) 0.7 % Baso % (Auto) 0.5 % Neut # (Auto) 6.49 (1.8-7.7) 10^3/u L Lymph # (Auto) 1.3 (0.8-4.8) 10^3/u L Page # (Auto) 0.3 (0.2-0.9) 10^3/u L Eos # (Auto) 0.1 (0.0-0.8) 10^3/u L Baso # (Auto) 0.0 (0.0-0.1) 10^3/u L Nucleated RBC % (a uto) 0 % Nucleated RBCs # 0.0 /100WBC Sodium 137 (136-145) mmol/L Potassium 4.5 (3.5-5.1) mmol/L Chloride 100 (98-107) mmol/L Carbon Dioxide 28 (22-29) mmol/L Anion Gap 13.5 (5-19) BUN 17 (8-23) mg/dL Creatinine 0.9 (0.5-0.9) mg/dL GFR Calculation Not Reportable Glucose 99 (65-115) mg/dL Calculated Osmolal ity 286 (285-295) mOsm/k g Calcium 9.5 (8.5-10.5) mg/dL Total Bilirubin 0.5 (0.15-1.2) mg/dL AST 24 (0-32) U/L ALT 18 (0-33) U/L Alkaline Phosphata se 63 (35-105) IU/L Troponin T Baselin e 8 (0-10) ng/L Troponin T 120 Min [place] (0-10) ng/L Delta Troponin T (0-10) ABS# Total Protein 7.2 (6.6-8.7) g/dL Albumin 4.4 (3.5-5.2) g/dL Globulin 2.8 (1.3-4.6) g/dL 08/05/20 Range/Units 16:20 WBC (4.0-10.0) 10^3/ uL RBC (4.1-5.3) 10^6/u L Hgb (11.5-15.3) g/dL Hct (37.0-47.0) % MCV (81-99) fL MCH (28.0-34.0) pg MCHC (30.0-36.0) g/dL RDW (12.1-15.1) % Plt Count (130-400) 10^3/c mm MPV (7.4-10.4) fL Neut % (Auto) % Lymph % (Auto) % Page % (Auto) % Eos % (Auto) % Baso % (Auto) % Neut # (Auto) (1.8-7.7) 10^3/u L Lymph # (Auto) (0.8-4.8) 10^3/u L Page # (Auto) (0.2-0.9) 10^3/u L Eos # (Auto) (0.0-0.8) 10^3/u L Baso # (Auto) (0.0-0.1) 10^3/u L Nucleated RBC % (a uto) % Nucleated RBCs # /100WBC Sodium (136-145) mmol/L Potassium (3.5-5.1) mmol/L Chloride (98-107) mmol/L Carbon Dioxide (22-29) mmol/L Anion Gap (5-19) BUN (8-23) mg/dL Creatinine (0.5-0.9) mg/dL GFR Calculation Glucose (65-115) mg/dL Calculated Osmolal ity (285-295) mOsm/k g Calcium (8.5-10.5) mg/dL Total Bilirubin (0.15-1.2) mg/dL AST (0-32) U/L ALT (0-33) U/L Alkaline Phosphata se (35-105) IU/L Troponin T Baselin e (0-10) ng/L Troponin T 120 Min [place] 7.73 (0-10) ng/L Delta Troponin T -0.27 L (0-10) ABS# Total Protein (6.6-8.7) g/dL Albumin (3.5-5.2) g/dL Globulin (1.3-4.6) g/dL Discharge Plan Discharge Patient Disposition: Home Clinical Impression: Atypical chest pain Condition: Stable Prescriptions: New isosorbide mononitrate 30 mg tablet extended release 24 hr 30 mg PO DAILY Qty: 30 RF: 0 No Action acetaminophen [Tylenol Extra Strength] 500 mg tablet 500 mg PO BEDTIME PRN (Reason: Pain) RF: 0 docusate sodium [Colace] 100 mg capsule 100 mg PO DAILY PRN (Reason: Constipation) RF: 0 methotrexate sodium 2.5 mg tablet 15 mg PO .Q7 days 30 Days Qty: 30 RF: 3 diclofenac sodium 1 % gel 2 gm TOPICAL QID Qty: 100 RF: 2 Systane (propylene glycol) 0.4-0.3 % Drops See Rx Instructions .ROUTE .COMPLEX RF: 0 Caltrate + D3 Plus Minerals 1 tab PO TID RF: 0 B Complex 1 tab PO DAILY@0800 RF: 0 omeprazole 40 mg capsule,delayed release(DR/EC) 40 mg PO DAILY@0800 RF: 0 prednisone 2.5 mg tablet 2.5 mg PO DAILY@0800 RF: 0 simvastatin 20 mg tablet 50 mg PO DAILY@0800 RF: 0 gabapentin 300 mg capsule 300 mg PO BID@0800,1999 RF: 0 folic acid 1 mg tablet 1 mg PO DAILY@0800 RF: 0 apixaban 2.5 mg tablet 2.5 mg PO BID@0800,2000 RF: 0 fluticasone propionate 50 mcg/actuation spray,suspension 2 spray INTRANASAL DAILY PRN (Reason: Sinus Symptoms) RF: 0 levalbuterol tartrate 45 mcg/actuation HFA aerosol inhaler 2 puff INHALATION Q4H PRN (Reason: Shortness Of Breath) RF: 0 escitalopram oxalate 10 mg tablet 5 mg PO DAILY@0800 RF: 0 Discharge Orders: Discharge ED (Routine); Ordered 08/05/20 Ordered By: Jaime Yusuf Referrals: Lucio Carmona DO [Primary Care Provider] - Discharge Diet: Usual diet Discharge Activity: Limit activity as instructed Patient Instructions: Opioid Safety Activity Restrictions/Additional Instructions: Avoid strenuous activities. Start isosorbide mononitrate once daily. If you have recurring chest pain return. Case management will call to set you up for a stress test. They will also call to get you set up for a 24-hour Holter monitor. Coding Level of Care Code ED Curing Bin Operator for Krunal Piña
[2020-08-05 15:42] VITALS: BP 148/88; PULSE 65; RESP 17; O2SAT 97
--- NOTE | 2020-08-05 15:55 | ECG_ITS ---
[facility] Test Date: 2020-08-05 Pat Name: Josephine Contreras Department: Room: Gender: Female Mica Plate Layer: : 1940 Requested By: Jaime Davis Order Number: [id number] Jadon MD: Tami Morales M.D. Measurements Intervals [place] Rate: 48 P: 69 [place]: 182 QRS: 5 QRSD: 90 T: 15 QT: 454 QTc: 409 Interpretive Statements SINUS BRADYCARDIA Compared to ECG 08/05/2020 12:56:18 No significant changes Electronically Signed On 08-05-2020 18:57:30 TOOL ROOM MACHINIST by Tami Morales M.D. [id number]
--- NOTE | 2020-08-05 16:11 | PC.NURSE ---
EKG done at 1610 and shown to ER doctor
[2020-08-05 16:50] VITALS: BP 138/82; PULSE 50; RESP 15; O2SAT 94
[2020-08-05 16:52] LABS: Troponin 5 2HR 7.73 ng/L (0-10)
[2020-08-05 16:55] LABS: Troponin 5 2HR Delta -0.27 ABS# (0-10)
[2020-08-05 17:13] VITALS: BP 155/80; PULSE 53; RESP 20; O2SAT 96
--- NOTE | 2020-08-07 07:42 | DCPLANNER ---
wind project manager had message to schedule an out patient stress test for patient. wind project manager faxed signed order to centralized scheduling, will call for appointment information.
--- NOTE | 2020-08-07 08:02 | DCPLANNER ---
integrated logistics operations manager also had message to schedule an appointment for a 24 hour halter monitor. integrated logistics operations manager faxed order to heart care, will call for appointment information.
--- NOTE | 2020-08-12 11:58 | DCPLANNER ---
Patient has an out patient stress test scheduled for Friday, August 28, 2020 at 10:00 - centralized scheduling will call patient with appointment information. Patient has a 24 hour halter monitor scheduled for Monday, August 17, 2020 at 11:00 with heart care - clinic will call patient with appointment information.
--- NOTE | 2020-09-02 10:15 | DCPLANNER ---
Patient had a follow up appointment scheduled for 08.28.20 for an outpatient stress test - patient did attend appointment. Patient had an appointment scheduled for 08.17.20 with heart care for a 24 hour monitor - patient did attend appointment.
== END 2020-08-05 17:13 | disposition home or self-care (01) ==
PROVIDERS: Emergency Provider Family Medicine; PCP Internal Medicine
DX: R07.89 Other chest pain (principal); I10 Essential (primary) hypertension; Z77.22 Contact with and (suspected) exposure to environmental tobacco smoke (acute) (chronic)
CPT/HCPCS: 71045; 80053; 84484; 85025; 93005; 99284

== ENCOUNTER → 2020-08-18 09:23 | Outpatient (BNVA) | payer MEDICARE, OTHER, SELFPAY | PROVIDERS: PCP Internal Medicine; Visit Provider Specialist | DX: R51.9 Headache, unspecified (principal); D32.0 Benign neoplasm of cerebral meninges | CPT/HCPCS: 99213 ==

== ENCOUNTER 2020-08-28 07:11 | Outpatient (CLI) | payer MEDICARE, OTHER, SELFPAY ==
[2020-08-28 07:38] VITALS: BMI 31.2
--- NOTE | 2020-08-28 07:38 | ECG_ITS ---
[facility] Test Date: 2020-08-28 Pat Name: Josephine Contreras Department: Room: Gender: Female Monument Erector: : 1940 Requested By: Jaime Davis Order Number: [id number] Jadon MD: Emmanuel Nixon M.D. Interpretive Statements NAME OF STUDY: LEXISCAN SESTAMIBI STRESS TEST INDICATION: [Chest Pain, ] Procedure: At the baseline, the blood pressure was 170/75 mmHg, heart rate of 50 bpm. Electrocardiogram showed normal sinus rhythm, with normal ST-T waves. The Lexiscan was infused over a duration of 20 seconds. A total of 0.4 mg of Lexiscan was infused. The stress phase was continued for a total of 5 minutes. Heart rate at the end of stress phase was 73 bpm with a blood pressure of 150/82mmHg. The EKG revealed sinus rhythm with no significant ST-T wave changes. Sestamibi was injected 20 seconds after the Lexiscan infusion. Blood pressure at the end of recovery phase was 153/74mmHg with a heart rate of 64 bpm. Conclusion: 1. Normal EKG response to Lexiscan infusion. 2. No Lexiscan induced chest pain or cardiac arrhythmia.Patient felt band like sensation around the chest, no pain. 3. Normal blood pressure and heart rate response. 4. Sestamibi/sestamibi perfusion scan pending; see separate report. Electronically Signed On 08-30-2020 17:26:24 CDT by Emmanuel Nixon M.D. [id number]
--- NOTE | 2020-08-28 07:38 | NMCV_ITS ---
NM luis f perf SPECT r/s* [id number] Josephine Contreras Age: 80 Gender: F : 1940 Exam Date: 08/28/2020 07:38 Ordering Phys: Jaime Yusuf DO Technologist: CORBY Meyers Exam Location: [facility] Indications: CHEST PAIN STRESS TEST Please see separate stress test report in [facility] for full findings IMAGE PROTOCOL Rest/Stress 1 Lexiscan Day Radiopharmaceutical Dose (mCi) Administration Site Administered by Rest: Tc-99m 10.6 IV CORBY Deleon Sestamibi Stress:Tc-99m 31.7 IV CORBY Deleon Sestamibi Rest: 28-Aug-2020 60 Discovery 630 Stress: 28-Aug-2020 30 Discovery 630 0.4mg Lexiscan. Images obtained in supine and prone position. SPECT RESULTS Technical Quality: Excellent Raw Data Analysis: Normal Image Corrections: No attenuation or motion correction applied Summed Stress Score: 1 Summed Rest Score: 1 Summed Difference Score: 0 PERFUSION FINDINGS There is homogenous uptake of radiotracer throughout the myocardium. No evidence of ischemia. FUNCTIONAL RESULTS (calculated via Gated SPECT) Stress Image LV EF (%): 85 Stress EDV (mL):72 TID: 0.95 Stress ESV (mL):11 FUNCTIONAL FINDINGS: There is normal left ventricular systolic function. IMPRESSIONS 1. Normal myocardial perfusion imaging with no evidence of ischemia 2. LV systolic function is normal Emmanuel Nixon MD (Electronically Signed) Final Date: 28 August 2020 14:43 S
[2020-08-28] MEDS: regadenoson 0.4 Mg/5 ml Syringe IVP (09:19)
[2020-08-28 09:44] VITALS: BP 153/74; PULSE 65
== END 2020-08-28 07:12 | disposition home or self-care (01) ==
LOC: CDL 07:14
PROVIDERS: PCP Internal Medicine; Visit Provider Family Medicine
DX: R07.9 Chest pain, unspecified (principal)
CPT/HCPCS: 78452; 93017; A9500; J2785

== ENCOUNTER → 2020-09-24 12:57 | Outpatient (BNVA) | payer MEDICARE, OTHER, SELFPAY | PROVIDERS: PCP Internal Medicine; Visit Provider Internal Medicine Rheumatology | DX: D32.0 Benign neoplasm of cerebral meninges (principal); Z86.79 Personal history of other diseases of the circulatory system; Z79.899 Other long term (current) drug therapy; Z15.89 Genetic susceptibility to other disease; S42.302A Unspecified fracture of shaft of humerus, left arm, initial encounter for closed fracture; X58.XXXA Exposure to other specified factors, initial encounter | CPT/HCPCS: 99214 ==

== ENCOUNTER 2020-12-16 10:44 | Outpatient (CLI) | payer MEDICARE, OTHER, SELFPAY ==
--- NOTE | 2020-12-16 10:49 | MM_ITS ---
WS: [id number] BILATERAL DIGITAL DIAGNOSTIC MAMMOGRAM MAMMOGRAPHY WITH CAD CLINICAL INFORMATION: BREAST LUMP RT SIDE 900 POSITION HISTORY: COMPARISON: October 23, 2019 TECHNIQUE: Bilateral CC, MLO, and ML views. FINDINGS: The breasts are composed of heterogeneous fibroglandular density, which can limit the detection of sm all underlying mass lesions. Punctate calcifications. Palpable marker right breast near the areola. N o specific underlying parenchymal normalities. Ultrasound is pending. Left breast is unremarkable. ULTRASOUND BREAST RIGHT TECHNIQUE: Ultrasound right breast focused area of concern. CLINICAL INFORMATION: BREAST LUMP RT SIDE 900 POSITION COMPARISON: None. FINDINGS: Ultrasound right breast at the palpable marker. No evidence of suspicious underlying cystic or solid lesion in the area of concern near the areola. A few dilated ducts consistent with ductal ectasia has a benign appearance. No visualized intraductal lesions. Recommend return to annual screening mammogr aphy. MM/[place] [id number] IMPRESSION: BI-RADS: 2-Benign FOLLOW UP: 1 Year Follow-up Recommend return to annual screening mammography.
== END 2020-12-16 10:45 | disposition home or self-care (01) ==
LOC: RADSHAW 10:48
PROVIDERS: PCP Internal Medicine; Visit Provider Internal Medicine
DX: N63.15 Unspecified lump in the right breast, overlapping quadrants (principal)
CPT/HCPCS: 76642; 77066

== ENCOUNTER → 2020-12-30 11:15 | Outpatient (BNVA) | payer MEDICARE, OTHER, SELFPAY | PROVIDERS: PCP Internal Medicine; Visit Provider Internal Medicine Rheumatology | DX: Z15.89 Genetic susceptibility to other disease (principal); Z79.899 Other long term (current) drug therapy; M19.90 Unspecified osteoarthritis, unspecified site | CPT/HCPCS: 36415; 80076; 82565; 85025; 86140 ==

== ENCOUNTER → 2021-01-06 12:57 | Outpatient (BNVA) | payer MEDICARE, OTHER, SELFPAY | PROVIDERS: PCP Internal Medicine; Visit Provider Internal Medicine Rheumatology | DX: Z86.79 Personal history of other diseases of the circulatory system (principal); D32.0 Benign neoplasm of cerebral meninges; S42.302A Unspecified fracture of shaft of humerus, left arm, initial encounter for closed fracture; Y93.9 Activity, unspecified; Z15.89 Genetic susceptibility to other disease; Z79.899 Other long term (current) drug therapy | CPT/HCPCS: 99214 ==

== ENCOUNTER 2021-04-27 13:10 | Outpatient (CLI) | payer MEDICARE, OTHER, SELFPAY ==
[2021-04-27 13:43] LABS: Basophils # 0.1 10^3/uL (0.0-0.1); Basophils % 1.2 %; Eosinophils # 0.3 10^3/uL (0.0-0.8); Eosinophils % 5.5 %; Hematocrit 36.8 % (37.0-47.0); Hemoglobin 11.9 g/dL (11.5-15.3); Lymphocytes # 1.3 10^3/uL (0.8-4.8); Mean Corpuscular HGB Conc 32.3 g/dL (30.0-36.0); Mean Corpuscular Volume 92.7 fl (81-99); Mean Platelet Volume 9.3 fL (7.4-10.4); Monocytes # 0.4 10^3/uL (0.2-0.9); Monocytes % 7.7 %; Neutrophils % 62.4 %; Nucleated Red Blood Cells % 0 %; Platelet Count 297 10^3/cmm (130-400); Red Blood Count 3.97 10^6/uL (4.1-5.3); Red Cell Distribution Width 14.9 % (12.1-15.1); White Blood Count 5.6 10^3/uL (4.0-10.0)
[2021-04-27 14:05] LABS: Alanine Aminotransferase 13 U/L (0-33); Albumin Level 4.3 g/dL (3.5-5.2); Alkaline Phosphatase 76 IU/L (35-105); Aspartate Amino Transferase 18 U/L (0-32); C Reactive Protein 3.7 mg/L (0.0-4.9); Globulin 2.1 g/dL (1.3-4.6); Total Bilirubin 0.3 mg/dL (0.15-1.2); Total Protein 6.4 g/dL (6.6-8.7)
== END 2021-04-27 13:11 | disposition home or self-care (01) ==
LOC: LAB 13:20
PROVIDERS: PCP Internal Medicine; Visit Provider Internal Medicine Rheumatology
DX: Z15.89 Genetic susceptibility to other disease (principal); Z79.899 Other long term (current) drug therapy; Z86.79 Personal history of other diseases of the circulatory system; M19.90 Unspecified osteoarthritis, unspecified site
CPT/HCPCS: 36415; 80076; 82565; 85025; 86140

== ENCOUNTER → 2021-05-19 15:23 | Outpatient (BNVA) | payer MEDICARE, OTHER, SELFPAY | PROVIDERS: PCP Internal Medicine; Visit Provider Family Medicine Adult Medicine | DX: Z01.812 Encounter for preprocedural laboratory examination (principal) | CPT/HCPCS: 87635; 87801 ==

== ENCOUNTER 2021-05-29 10:02 | Emergency (ER) | payer MEDICARE, OTHER, SELFPAY ==
[2021-05-29 10:22] VITALS: BP 170/80; PULSE 50; RESP 15; TEMP 36.6; O2SAT 98; BMI 29.9
--- NOTE | 2021-05-29 10:38 | ECG_ITS ---
[facility] Test Date: 2021-05-29 Pat Name: Josephine Contreras Department: Room: Gender: Female Bracelet Maker Novelty: : 1940 Requested By: Jaime Davis Order Number: [id number] Jadon MD: Tamiko Hernandes M.D. Measurements Intervals [place] Rate: 47 P: 71 [place]: 167 QRS: 20 QRSD: 88 T: 50 QT: 431 QTc: 381 Interpretive Statements SINUS BRADYCARDIA POSSIBLE ANTERIOR MYOCARDIAL INFARCTION , OF INDETERMINATE AGE [30 ms Q WAVE IN V3/V4, OR R < 0.2 mV IN V4] POSSIBLE INFERIOR MYOCARDIAL INFARCTION , PROBABLY OLD [30 ms Q WAVE IN II/aVF] Compared to ECG 08/05/2020 16:07:18 Myocardial infarct finding now present Electronically Signed On 05-29-2021 15:02:35 ADMINISTRATIVE PROJECT COORDINATOR by Tamiko Hernandes M.D. [id number]
--- NOTE | 2021-05-29 10:38 | XRR_ITS ---
PROCEDURE INFORMATION: Exam: XR Chest Exam date and time: 05/29/2021 10:38 AM Age: 81 years old Clinical indication: Other: More back/between shoulder blades; Patient HX: 81-year-old female presents emergency room complaining of intermittent pain between her shoulders is become constant. Feels it mostly in her back sometimes in her chest. ; Additional info: Chest pain TECHNIQUE: Imaging protocol: XR of the chest. Views: 1 view. Total images: 1 COMPARISON: CR XR chest 1V portable [id number] 08/05/2020 1:54 PM FINDINGS: Lungs: Trace scar noted in the left lung base. Benign granulomatous disease of the lung is noted. Pleural spaces: Unremarkable. No pleural effusion. No pneumothorax. Heart/Mediastinum: Heart size is stable when compared to the prior exam. Bones/joints: Osseous structures are unchanged from the prior exam. XR/XR chest 1V portable [id number] IMPRESSION: 1. Trace scar noted in the left lung base. 2. No acute cardiopulmonary process.
--- NOTE | 2021-05-29 10:43 | W.ED.CHESTPA ---
HPI - Chest Pain General: Chief Complaint: Chest Pain Stated Complaint: HTN, PAIN BETWEEN SHOULDER BLADES Time Seen by Provider: 05/29/21 10:05 History of Present Illness: HPI narrative: 81-year-old female presents emergency room complaining of intermittent pain between her shoulders is become constant. Feels it mostly in her back sometimes in her chest. She is currently on doxycycline for upper respiratory infection and a prednisone pack. she is a history of previous PE. Earlier this year patient had a Lexiscan sestamibi stress test that was negative. MD complaint: chest pain Onset (ago): hour(s) Timing of current episode: episodic Prior episodes: Yes Onset: during rest Pain location: left chest Pain radiation: back Severity: mild Quality: sharp Relieving factors: nothing Exacerbating factors: nothing Associated symptoms: Deny abdominal pain, diaphoresis, dyspnea, fever(s), leg edema, nausea, palpitations, sense of impending doom, syncope or vomiting Treatment prior to arrival: none Review of Systems Const: Denies: fever(s) or diaphoresis ENMT: Denies: throat pain, ear or mastoid pain, nasal discharge or nasal congestion Card: Denies: palpitations or syncope Resp: Denies: dyspnea GI: Denies: abdominal pain, nausea or vomiting : Denies: flank pain, difficulty voiding, dysuria, urinary frequency or urinary urgency Skin/Breast: Denies: rash or pruritus PFSH ED PFSH: Medical History Asthma Bradycardia Cerebral meningioma Chronic sinusitis Deviated septum Dysphonia GERD (gastroesophageal reflux disease) Health education/counseling High risk medication use 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) Hypertension Immunization counseling Incomplete bladder emptying Left humeral fracture Memory loss Migraine Post-nasal drip Recurrent UTI (urinary tract infection) Retro-orbital pain of both eyes Sinusitis, maxillary, chronic Temporal headache Urgency incontinence Surgical History H/O hand surgery History of abdominal hysterectomy History of appendectomy History of biopsy of temporal artery History of bunionectomy of left great toe History of cataract extraction with lens replacement History of repair of rectocele Family History Father CHF (congestive heart failure) Mother Diabetes 3 SIBLINGS HAVE DIABETES WELL Mother Cancer Hypertension Brother No problems noted. Brother No problems noted. Brother AAA (abdominal aortic aneurysm) Sister AAA (abdominal aortic aneurysm) Cancer Father Heart attack Social History Second hand smoke exposure: Yes ([id number]) Alcohol intake: current Alcohol intake frequency: holidays/special occasions only Alcohol type: wine Lives independently: Yes Household members: spouse Marital status: Current occupational status: retired History of recent travel: No Current gender identity: Female Physical Exam Const: COMMON NORMALS: no acute distress GENERAL APPEARANCE: cooperative and comfortable ORIENTATION/CONSCIOUSNESS: Yes awake, Yes oriented to person, Yes oriented to place and Yes oriented to time HENMT: COMMON NORMALS: normocephalic, atraumatic and hearing grossly normal bilaterally HEAD & SCALP: normocephalic and atraumatic Neck/C-Spine: COMMON NORMALS: no JVD Resp: COMMON NORMALS: normal respiratory effort, No retractions, No use of accessory muscles and clear to auscultation bilaterally AUSCULTATION: clear to auscultation bilaterally Cardio: COMMON NORMALS: no JVD, regular rate, regular rhythm and No murmurs present (Cardio) RATE: regular rate RHYTHM: regular rhythm GI: COMMON NORMALS: Soft to palpation and No hepatosplenomegaly present AUSCULTATION: Yes normoactive bowel sounds PALPATION: Yes Soft to palpation, No Tenderness to palpation present (GI), No Guarding due to palpation present (GI) and Yes No hepatosplenomegaly present Back/Pelvis: OTHER: Reproducible pain with palpation the paraspinal muscle mass at the T8-10 level Extremity: COMMON NORMALS: normal to inspection, capillary refill normal, no clubbing, cyanosis or edema, no calf tenderness and no pedal edema Neuro: SENSORIUM/ORIENTATION: Yes oriented to person, Yes oriented to place and Yes oriented to time Skin: COMMON NORMALS: no rashes or lesions noted GENERAL SKIN EXAM: no rashes or lesions noted Course Vital Signs: Vital signs: Vital Signs Temperature 97.9 F 05/29/21 10:22 Pulse Rate 50 L 05/29/21 14:24 Respiratory Rate 15 05/29/21 10:22 Blood Pressure 137/84 05/29/21 14:24 Pulse Oximetry 96 05/29/21 14:24 MDM - Chest Pain MDM Narrative: Medical decision making narrative: Labs imaging and EKGs reviewed no acute ST changes. Troponin unremarkable discharge patient home patient's pain has a distinctive reproducibility to it with palpation along her thoracic spine left paraspinal muscle mass. What is concerning is that she has a history of PE and had not been taking her medications regularly according to the pharmacy consultant she last had her and take coagulant december. Patient encouraged to get back on her anticoagulant and follow that regimen regularly. Lab Data: Labs: Lab Results 05/29/21 05/29/21 05/29/21 10:45 10:45 10:45 WBC 7.8 10^3/uL 10^3/ uL (4.0-10.0) RBC 4.30 10^6/uL 10^6 /uL (4.1-5.3) Hgb 12.7 g/dL g/dL (11.5-15.3) Hct 39.0 % % (37.0-47.0) MCV 90.7 fl fl (81-99) MCH 29.5 pg pg (28.0-34.0) MCHC 32.6 g/dL g/dL (30.0-36.0) RDW 14.6 % % (12.1-15.1) Plt Count 373 10^3/cmm 10^3 /cmm (130-400) MPV 9.2 fL fL (7.4-10.4) Neut % (Auto) 53.2 % % Lymph % (Auto) 36.1 % % [place] % (Auto) 8.8 % % Eos % (Auto) 1.0 % % Baso % (Auto) 0.5 % % Neut # (Auto) 4.13 10^3/uL 10^3 /uL (1.8-7.7) Lymph # (Auto) 2.8 10^3/uL 10^3/ uL (0.8-4.8) [place] # (Auto) 0.7 10^3/uL 10^3/ uL (0.2-0.9) Eos # (Auto) 0.1 10^3/uL 10^3/ uL (0.0-0.8) Baso # (Auto) 0.0 10^3/uL 10^3/ uL (0.0-0.1) Nucleated RBC % (a uto) 0 % % Nucleated RBCs # 0.0 /100WBC /100W BC Sodium 137 mmol/L mmol/L (136-145) Potassium 3.6 mmol/L mmol/L (3.5-5.1) Chloride 97 mmol/L L mmol/ L (98-107) Carbon Dioxide 26 mmol/L mmol/L (22-29) Anion Gap 17.6 (5-19) BUN 18 mg/dL mg/dL (8-23) Creatinine 0.7 mg/dL mg/dL (0.5-0.9) GFR Calculation Not Reportable Glucose 80 mg/dL mg/dL (65-115) Calculated Osmolal ity 285 mOsm/kg mOsm/ kg (285-295) Calcium 8.8 mg/dL mg/dL (8.5-10.5) Total Bilirubin 0.7 mg/dL mg/dL (0.15-1.2) AST 22 U/L U/L (0-32) ALT 20 U/L U/L (0-33) Alkaline Phosphata se 64 IU/L IU/L (35-105) Troponin T Baselin e 10 ng/L ng/L (0-10) Troponin T 120 Min andreafski Delta Troponin T Total Protein 7.1 g/dL g/dL (6.6-8.7) Albumin 4.1 g/dL g/dL (3.5-5.2) Globulin 3.0 g/dL g/dL (1.3-4.6) 05/29/21 12:45 WBC RBC Hgb Hct MCV MCH MCHC RDW Plt Count MPV Neut % (Auto) Lymph % (Auto) [place] % (Auto) Eos % (Auto) Baso % (Auto) Neut # (Auto) Lymph # (Auto) [place] # (Auto) Eos # (Auto) Baso # (Auto) Nucleated RBC % (a uto) Nucleated RBCs # Sodium Potassium Chloride Carbon Dioxide Anion Gap BUN Creatinine GFR Calculation Glucose Calculated Osmolal ity Calcium Total Bilirubin AST ALT Alkaline Phosphata se Troponin T Baselin e Troponin T 120 Min andreafski 9.74 ng/L ng/L (0-10) Delta Troponin T -0.26 ABS# L ABS# (0-10) Total Protein Albumin Globulin Discharge Plan Discharge Patient Disposition: Home Clinical Impression: Atypical chest pain, Hypertension, Musculoskeletal back pain Condition: Stable Prescriptions: No Action acetaminophen [Tylenol Extra Strength] 500 mg tablet 500 mg PO BEDTIME PRN (Reason: Pain) RF: 0 diclofenac sodium 1 % gel 2 g TOPICAL QID PRN (Reason: joint pain) Qty: 100 RF: 3 psyllium husk [Fiber Laxative (psyllium husk)] 0.52 gram capsule 0.52 g PO DAILY PRN (Reason: Constipation) RF: 0 isosorbide mononitrate 30 mg tablet extended release 24 hr 30 mg PO BID RF: 0 folic acid 1 mg tablet 1 mg PO DAILY@0800 90 Days Qty: 90 RF: 3 Eliquis 2.5 mg tablet See Rx Instructions .ROUTE .COMPLEX Qty: 60 RF: 3 Systane (propylene glycol) 0.4-0.3 % Drops See Rx Instructions .ROUTE .COMPLEX RF: 0 B Complex 1 tab PO BID RF: 0 omeprazole 40 mg Capsule,Delayed Release(Dr/Ec) 40 mg PO EVERY OTHER DAY RF: 0 Calcium + Vitamin D 600 mg calcium- 200 unit Tablet 1 tab PO DAILY RF: 0 doxycycline hyclate 100 mg Tablet 100 mg PO BID RF: 0 Fosamax 70 mg tablet 70 mg PO Q7D RF: 0 methotrexate sodium 2.5 mg tablet 15 mg PO Q7D RF: 0 simvastatin 20 mg tablet 20 mg PO DAILY RF: 0 gabapentin 300 mg capsule See Rx Instructions .ROUTE .COMPLEX RF: 0 fluticasone propionate 50 mcg/actuation spray,suspension 2 spray INTRANASAL DAILY PRN (Reason: Sinus Symptoms) RF: 0 levalbuterol tartrate 45 mcg/actuation HFA aerosol inhaler 2 puff INHALATION Q4H PRN (Reason: Shortness Of Breath) RF: 0 escitalopram oxalate 10 mg tablet 10 mg PO DAILY@0800 RF: 0 Discharge Orders: Discharge ED (Routine); Ordered 05/29/21 Ordered By: Jaime Yusuf Referrals: Lucio Carmona DO [Primary Care Provider] - Discharge Diet: Usual diet Discharge Activity: Limit activity as instructed Patient Instructions: Opioid Safety Activity Restrictions/Additional Instructions: Follow-up to recheck your blood pressure with your primary care doctor within the next week. If you have any worsening or change problems return to the emergency room. Coding Level of Care Code ED Environmental Compliance Officer for Krunal Piña Exam Comprehensive
[2021-05-29 10:56] LABS: Basophils % 0.5 %; Eosinophils # 0.1 10^3/uL (0.0-0.8); Hemoglobin 12.7 g/dL (11.5-15.3); Lymphocytes # 2.8 10^3/uL (0.8-4.8); Lymphocytes % 36.1 %; Mean Corpuscular HGB Conc 32.6 g/dL (30.0-36.0); Mean Corpuscular Hemoglobin 29.5 pg (28.0-34.0); Mean Corpuscular Volume 90.7 fl (81-99); Mean Platelet Volume 9.2 fL (7.4-10.4); Monocytes # 0.7 10^3/uL (0.2-0.9); Monocytes % 8.8 %; Neutrophils # 4.13 10^3/uL (1.8-7.7); Neutrophils % 53.2 %; Nucleated Red Blood Cells % 0 %; Platelet Count 373 10^3/cmm (130-400); Red Cell Distribution Width 14.6 % (12.1-15.1); White Blood Count 7.8 10^3/uL (4.0-10.0)
[2021-05-29 11:12] VITALS: BP 127/45; PULSE 73; O2SAT 99
[2021-05-29 11:14] LABS: Alanine Aminotransferase 20 U/L (0-33); Albumin Level 4.1 g/dL (3.5-5.2); Alkaline Phosphatase 64 IU/L (35-105); Anion Gap 17.6 (5-19); Aspartate Amino Transferase 22 U/L (0-32); Blood Urea Nitrogen 18 mg/dL (8-23); Calcium 8.8 mg/dL (8.5-10.5); Carbon Dioxide 26 mmol/L (22-29); Chloride 97 mmol/L (98-107); Creatinine Clr Calc Pharmacy 58.2113; Glucose 80 mg/dL (65-115); Osmolality Calculated 285 mOsm/kg (285-295); Potassium 3.6 mmol/L (3.5-5.1); Sodium 137 mmol/L (136-145); Total Bilirubin 0.7 mg/dL (0.15-1.2); Total Protein 7.1 g/dL (6.6-8.7)
[2021-05-29 11:15] LABS: Troponin(5th) Baseline 10 ng/L (0-10)
[2021-05-29 13:24] LABS: Troponin 5 2HR 9.74 ng/L (0-10)
[2021-05-29 13:29] LABS: Troponin 5 2HR Delta -0.26 ABS# (0-10)
[2021-05-29 14:24] VITALS: BP 137/84; PULSE 50; O2SAT 96
--- NOTE | 2021-05-29 14:27 | PC.NURSE ---
UPON [facility] PT IS IN NAD. PT DENIES ANY FURTHER NEEDS AT THIS TIME. PT IS AMB WITH A STEADY GAIT UNASSISTED.
== END 2021-05-29 14:27 | disposition home or self-care (01) ==
PROVIDERS: Emergency Provider Family Medicine; PCP Internal Medicine
DX: R07.89 Other chest pain (principal); I10 Essential (primary) hypertension; M54.89 Other dorsalgia; Z77.22 Contact with and (suspected) exposure to environmental tobacco smoke (acute) (chronic); R00.1 Bradycardia, unspecified; J45.909 Unspecified asthma, uncomplicated
CPT/HCPCS: 36415; 71045; 80053; 84484; 85025; 93005; 99283

== ENCOUNTER → 2021-06-29 10:53 | Outpatient (BNVA) | payer MEDICARE, OTHER, SELFPAY | PROVIDERS: PCP Internal Medicine; Visit Provider Internal Medicine Rheumatology | DX: H57.13 Ocular pain, bilateral (principal); Z15.89 Genetic susceptibility to other disease; M19.90 Unspecified osteoarthritis, unspecified site; Z79.899 Other long term (current) drug therapy; Z79.52 Long term (current) use of systemic steroids; M85.80 Other specified disorders of bone density and structure, unspecified site; I26.09 Other pulmonary embolism with acute cor pulmonale; Z79.01 Long term (current) use of anticoagulants; Z71.89 Other specified counseling | CPT/HCPCS: 99214 ==

== ENCOUNTER → 2021-10-26 12:13 | Outpatient (BNVA) | payer MEDICARE, OTHER, SELFPAY | PROVIDERS: PCP Internal Medicine; Visit Provider Internal Medicine Rheumatology | DX: Z15.89 Genetic susceptibility to other disease (principal); Z86.79 Personal history of other diseases of the circulatory system; Z79.899 Other long term (current) drug therapy; I26.99 Other pulmonary embolism without acute cor pulmonale; Z79.01 Long term (current) use of anticoagulants; Z71.89 Other specified counseling | CPT/HCPCS: 80076; 82565; 85025; 86140; 99214 ==

== ENCOUNTER → 2021-12-03 09:26 | Outpatient (BNVA) | payer MEDICARE, OTHER, SELFPAY | PROVIDERS: PCP Internal Medicine; Visit Provider Internal Medicine | DX: I10 Essential (primary) hypertension (principal); I27.20 Pulmonary hypertension, unspecified; I26.94 Multiple subsegmental thrombotic pulmonary emboli without acute cor pulmonale; R60.0 Localized edema | CPT/HCPCS: 99213; 99214 ==

== ENCOUNTER → 2021-12-08 13:44 | Outpatient (BNVA) | payer MEDICARE, OTHER, SELFPAY | PROVIDERS: PCP Internal Medicine; Visit Provider Podiatrist Foot & Ankle Surgery | DX: W18.09XA Striking against other object with subsequent fall, initial encounter (principal); S92.331A Displaced fracture of third metatarsal bone, right foot, initial encounter for closed fracture; S92.341A Displaced fracture of fourth metatarsal bone, right foot, initial encounter for closed fracture; S92.354A Nondisplaced fracture of fifth metatarsal bone, right foot, initial encounter for closed fracture | CPT/HCPCS: 99203 ==

== ENCOUNTER 2021-12-08 16:07 | Outpatient (CLI) | payer MEDICARE, OTHER, SELFPAY | END 2021-12-08 16:08 | disposition home or self-care (01) | LOC: SPT 16:07 | PROVIDERS: PCP Internal Medicine; Visit Provider Podiatrist Foot & Ankle Surgery | DX: Z46.89 Encounter for fitting and adjustment of other specified devices (principal); S92.354D Nondisplaced fracture of fifth metatarsal bone, right foot, subsequent encounter for fracture with routine healing; X58.XXXD Exposure to other specified factors, subsequent encounter | CPT/HCPCS: 97760; L4361 ==

== ENCOUNTER → 2021-12-30 14:33 | Outpatient (BNVA) | payer MEDICARE, OTHER, SELFPAY | PROVIDERS: PCP Internal Medicine; Visit Provider Podiatrist Foot & Ankle Surgery | DX: S92.334D Nondisplaced fracture of third metatarsal bone, right foot, subsequent encounter for fracture with routine healing; S92.344D Nondisplaced fracture of fourth metatarsal bone, right foot, subsequent encounter for fracture with routine healing; S92.354D Nondisplaced fracture of fifth metatarsal bone, right foot, subsequent encounter for fracture with routine healing; X58.XXXD Exposure to other specified factors, subsequent encounter | CPT/HCPCS: 73630; 99213 ==

== ENCOUNTER → 2022-01-05 14:29 | Outpatient (BNVA) | payer MEDICARE, OTHER, SELFPAY | PROVIDERS: PCP Internal Medicine; Visit Provider Internal Medicine Rheumatology | DX: Z15.89 Genetic susceptibility to other disease (principal); Z86.79 Personal history of other diseases of the circulatory system; Z79.899 Other long term (current) drug therapy; Z71.89 Other specified counseling; H57.10 Ocular pain, unspecified eye; Z79.52 Long term (current) use of systemic steroids; I26.99 Other pulmonary embolism without acute cor pulmonale; Z79.01 Long term (current) use of anticoagulants | CPT/HCPCS: 80076; 82565; 85025; 86140; 99214 ==

== ENCOUNTER → 2022-01-06 08:15 | Outpatient (BNVA) | payer MEDICARE, OTHER, SELFPAY | PROVIDERS: PCP Internal Medicine; Visit Provider Internal Medicine Critical Care Medicine | DX: R60.0 Localized edema (principal); Z86.711 Personal history of pulmonary embolism; Z79.01 Long term (current) use of anticoagulants | CPT/HCPCS: 99213 ==

== ENCOUNTER → 2022-04-04 13:55 | Outpatient (BNVA) | payer MEDICARE, OTHER, SELFPAY | PROVIDERS: PCP Internal Medicine; Visit Provider Internal Medicine Rheumatology | DX: Z15.89 Genetic susceptibility to other disease (principal); Z79.899 Other long term (current) drug therapy; Z86.79 Personal history of other diseases of the circulatory system; Z71.89 Other specified counseling; M19.90 Unspecified osteoarthritis, unspecified site; J32.0 Chronic maxillary sinusitis; J32.2 Chronic ethmoidal sinusitis; Z77.22 Contact with and (suspected) exposure to environmental tobacco smoke (acute) (chronic); Z86.711 Personal history of pulmonary embolism; Z79.01 Long term (current) use of anticoagulants | CPT/HCPCS: 36415; 80076; 82565; 85025; 86140; 99214 ==

== ENCOUNTER 2022-04-23 04:21 | Emergency (ER) | payer MEDICARE, OTHER, SELFPAY ==
--- NOTE | 2022-04-23 04:23 | XRR_ITS ---
PROCEDURE INFORMATION: Exam: XR Chest Exam date and time: 04/23/2022 5:33 AM Age: 82 years old Clinical indication: Cough and fever TECHNIQUE: Imaging protocol: Radiologic exam of the chest. Views: 1 view. Total images: 1143 COMPARISON: CR XR chest 1V portable [id number] 05/29/2021 11:02 AM FINDINGS: Lungs: Trace atelectasis or scar noted in the left mid lung and lung base. Coarse chronic pulmonary markings. WithImpression. No acute cardiopulmonary process. Pleural spaces: Unremarkable. No pleural effusion. No pneumothorax. Heart/Mediastinum: Unremarkable. No cardiomegaly. Bones/joints: Old left surgical neck fracture of left humerus. Osseous structures are unchanged from the prior exam. XR/XR chest 1V portable [id number] IMPRESSION: 1. Trace atelectasis or scar noted in the left mid lung and lung base. 2. Coarse chronic pulmonary markings.
[2022-04-23 04:29] VITALS: BP 143/82; PULSE 64; RESP 20; TEMP 36.9; O2SAT 94; BMI 28.6
--- NOTE | 2022-04-23 04:38 | ED_ITS ---
HPI - SOB/Dyspnea General: Chief Complaint: Shortness of Breath/Dyspnea Stated Complaint: Coughing\Fever\SOB Time Seen by Provider: 04/23/22 04:23 Source: patient Mode of arrival: ambulatory Limitations: no limitations History of Present Illness: HPI Narrative: 82-year-old female states that over the last 3 days she been having cough fever along with some shortness of breath and wheezing she history of CHF and COPD states she was with family in [place] and has been coughing worse since getting back. States she is getting her to see urgent care yesterday but they were not and states that tonight her cough is gotten much worse. She denies any vomiting she denies any chest pain. Associated symptoms: Reports fever(s); Deny abdominal pain, chest pain, nausea or vomiting Review of Systems Const: Reports: fever(s) and body aches Eyes: Denies: blurry vision or eye discomfort ENMT: Denies: throat pain or dental pain Card: Denies: chest pain Resp: Reports: dyspnea, non-productive cough and wheezing GI: Denies: abdominal pain, nausea, vomiting or diarrhea : Denies: dysuria Musc: Denies: neck pain or back pain Skin/Breast: Denies: rash Neuro: Denies: headache(s) Psych: Denies: depression [place]/Lymph: Denies: easy bruising All/Imm: Denies: urticaria PFSH ED PFSH: Medical History Asthma Bradycardia Cerebral meningioma Chronic sinusitis Deviated septum Dysphonia GERD (gastroesophageal reflux disease) Health education/counseling High risk medication use 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) Hypertension Immunization counseling Incomplete bladder emptying Left humeral fracture Memory loss Migraine Post-nasal drip Recurrent UTI (urinary tract infection) Retro-orbital pain of both eyes Sinusitis, maxillary, chronic Temporal headache Urgency incontinence Surgical History H/O hand surgery History of abdominal hysterectomy History of appendectomy History of biopsy of temporal artery History of bunionectomy of left great toe History of cataract extraction with lens replacement History of repair of rectocele Family History Father CHF (congestive heart failure) Mother Diabetes 3 SIBLINGS HAVE DIABETES WELL Mother Cancer Hypertension Brother No problems noted. Brother No problems noted. Brother AAA (abdominal aortic aneurysm) Sister AAA (abdominal aortic aneurysm) Cancer Father Heart attack Social History Smoking and tobacco status: never smoked Second hand smoke exposure: Yes ([id number]) Alcohol intake: current Alcohol intake frequency: holidays/special occasions only Alcohol type: wine Lives independently: Yes Household members: spouse Marital status: Current occupational status: retired History of recent travel: No Current gender identity: Female Physical Exam Const: COMMON NORMALS: no acute distress, patient oriented x3 and healthy appearing HENMT: COMMON NORMALS: normocephalic and atraumatic HEAD & SCALP: normoc ephalic and atraumatic Eye: COMMON NORMALS: Equal, round and reactive pupils present and EOMs intact bilaterally PUPIL: Yes Equal, round and reactive pupils present Neck/C-Spine: COMMON NORMALS: full ROM and supple Chest: COMMONS NORMALS: normal inspection of the chest and normal palpation of entire chest wall Resp: COMMON NORMALS: normal respiratory effort, No retractions, No use of accessory muscles and clear to auscultation bilaterally AUSCULTATION: clear to auscultation bilaterally and wheezes Cardio: COMMON NORMALS: regular rate, regular rhythm and No murmurs present (Cardio) RATE: regular rate RHYTHM: regular rhythm GI: COMMON NORMALS: Normal to inspection, nondistended, normoactive bowel sounds present, Soft to palpation, non-tender and no masses PALPATION: Yes Soft to palpation Extremity: COMMON NORMALS: normal to inspection and full ROM Neuro: COMMON NORMALS: patient oriented x3, moves all extremities and no focal motor deficits Psych: COMMON NORMALS: mental status grossly normal, Normal thought process present and cooperative THOUGHT PROCESS: Normal thought process present Skin: COMMON NORMALS: no rashes or lesions noted and no wounds GENERAL SKIN EXAM: no rashes or lesions noted Course Vital Signs: Vital signs: Vital Signs Temperature 98.4 F 04/23/22 04:29 Pulse Rate 77 04/23/22 05:16 Respiratory Rate 16 04/23/22 05:16 Blood Pressure 167/87 04/23/22 05:16 Pulse Oximetry 92 04/23/22 05:16 Oxygen Delivery Me thod 04/23/22 05:03 MDM - SOB/Dyspnea Medical Decision Making Patient presents with cough along with low-grade fever she did have wheezing here she feels much improved here after breathing treatment. She has no signs of pulmonary embolism x-ray is normal her pulse ox here is normal she is continue breathing treatments at home we will place her on doxycycline along with steroids. Lab Data 04/23/22 05:01 04/23/22 05:01 Labs/Radiology: Radiology Impressions Chest X-Ray 04/23/22 04:23 IMPRESSION: 1. Trace atelectasis or scar noted in the left mid lung and lung base. 2. Coarse chronic pulmonary markings. Laboratory Results WBC 6.6 10^3/uL (4.0-10.0) 04/23/22 05:01 RBC 4.09 10^6/uL (4.1-5.3) L 04/23/22 05:01 Hgb 12.0 g/dL (11.5-15.3) 04/23/22 05:01 Hct 37.4 % (37.0-47.0) 04/23/22 05:01 MCV 91.4 fl (81-99) 04/23/22 05:01 MCH 29.3 pg (28.0-34.0) 04/23/22 05:01 MCHC 32.1 g/dL (30.0-36.0) 04/23/22 05:01 RDW 14.7 % (12.1-15.1) 04/23/22 05:01 Plt Count 273 10^3/cmm (130-400) 04/23/22 05:01 MPV 9.2 fL (7.4-10.4) 04/23/22 05:01 Neut % (Auto) 65.9 % 04/23/22 05:01 Lymph % (Auto) 18.1 % 04/23/22 05:01 [place] % (Auto) 8.1 % 04/23/22 05:01 Eos % (Auto) 6.5 % 04/23/22 05:01 Baso % (Auto) 1.1 % 04/23/22 05:01 Neut # (Auto) 4.38 10^3/uL (1.8-7.7) 04/23/22 05:01 Lymph # (Auto) 1.2 10^3/uL (0.8-4.8) 04/23/22 05:01 [place] # (Auto) 0.5 10^3/uL (0.2-0.9) 04/23/22 05:01 Eos # (Auto) 0.4 10^3/uL (0.0-0.8) 04/23/22 05:01 Baso # (Auto) 0.1 10^3/uL (0.0-0.1) 04/23/22 05:01 Nucleated RBC % (auto) 0 % 04/23/22 05:01 Nucleated RBCs # 0.0 /100WBC 04/23/22 05:01 PT 15.30 SECONDS (12.1-14.9) H 04/23/22 05:01 INR 1.18 (0.8-1.2) 04/23/22 05:01 Sodium 138 mmol/L (136-145) 04/23/22 05:01 Potassium 4.0 mmol/L (3.5-5.1) 04/23/22 05:01 Chloride 103 mmol/L (98-107) 04/23/22 05:01 Carbon Dioxide 24 mmol/L (22-29) 04/23/22 05:01 Anion Gap 15.0 (5-19) 04/23/22 05:01 BUN 13 mg/dL (8-23) 04/23/22 05:01 Creatinine 0.7 mg/dL (0.5-0.9) 04/23/22 05:01 GFR Calculation Not Reportable 04/23/22 05:01 Glucose 114 mg/dL (65-115) 04/23/22 05:01 Calculated Osmolality 287 mOsm/kg (285-295) 04/23/22 05:01 Calcium 9.3 mg/dL (8.5-10.5) 04/23/22 05:01 Total Bilirubin 0.6 mg/dL (0.15-1.2) 04/23/22 05:01 AST 29 U/L (0-32) 04/23/22 05:01 ALT 22 U/L (0-33) 04/23/22 05:01 Alkaline Phosphatase 69 U/L (35-105) 04/23/22 05:01 NT-Pro-B Natriuret Pep 249 pg/mL (0-450) 04/23/22 05:01 Total Protein 7.0 g/dL (6.6-8.7) 04/23/22 05:01 Albumin 3.9 g/dL (3.5-5.2) 04/23/22 05:01 Globulin 3.1 g/dL (1.3-4.6) 04/23/22 05:01 Influenza Type A Ag negative (Negative) 04/23/22 04:34 Influenza Type B Ag negative (Negative) 04/23/22 04:34 SARS-CoV-2 Ag (Rapid) negative (Negative) 04/23/22 04:34 Discharge Plan Discharge Patient Disposition: Home Clinical Impression: Bronchitis Condition: Stable Prescriptions: New prednisone 50 mg tablet 50 mg PO DAILY Qty: 5 0RF doxycycline hyclate 100 mg tablet 100 mg PO BID 7 Days Qty: 14 0RF No Action acetaminophen [Tylenol Extra Strength] 500 mg tablet 500 mg PO BEDTIME PRN (Reason: Pain) apixaban 5 mg tablet 2.5 mg PO BID Qty: 30 2RF Rx Instructions: Take 1/2 (2.5mg) tab at 8 AM and 1/2 (2.5mg) tab at 8 PM psyllium husk [Fiber Laxative (psyllium husk)] 0.52 gram capsule 0.52 g PO DAILY PRN (Reason: Constipation) isosorbide mononitrate 30 mg tablet extended release 24 hr 15 mg PO BID omeprazole 40 mg capsule,delayed release(DR/EC) 40 mg PO DAILY escitalopram oxalate 10 mg tablet 10 mg PO DAILY diclofenac sodium 1 % gel 2 g TOPICAL QID PRN (Reason: joint pain) Qty: 100 3RF Rx Instructions: apply to affected area as needed folic acid 1 mg tablet 1 mg PO TID 90 Days Qty: 270 1RF gabapentin 300 mg capsule 300 mg .ROUTE BID Qty: 90 3RF Rx Instructions: take 1 cap in AM and 2 caps at HS methotrexate sodium 2.5 mg tablet 7.5 mg PO Q7D Qty: 45 1RF Rx Instructions: take 3 tabs once a week on (Wednesdays) prednisone 20 mg tablet See Rx Instructions PO .COMPLEX PRN (Reason: joint pain flare) Qty: 30 1RF Rx Instructions: take 1 tab daily for 5-7 days as needed for arthritis flare PO PRN; Systane (propylene glycol) 0.4-0.3 % drops See Rx Instructions .ROUTE .COMPLEX Rx Instructions: 1 drop in eyes every 2 hours during the day and at bedtime B Complex 1 tab PO DAILY simvastatin 20 mg tablet 20 mg PO DAILY calcium carbonate-vitamin D2 600 mg calcium- 200 unit tablet 2 tab PO DAILY levalbuterol tartrate 45 mcg/actuation HFA aerosol inhaler 2 puff INHALATION Q4H PRN (Reason: Shortness Of Breath) Discharge Orders: Discharge ED (Routine); Ordered 04/23/22 Ordered By: Aurelia Bray Referrals: Lucio Carmona DO [Primary Care Provider] - 1-3 days Discharge Diet: Advance as tolerated Discharge Activity: Resume usual activity Patient Instructions: Bronchitis (Acute) - Adult Coding Level of Care Code ED Blow Mold Operator for Jomarg Fwd Exam Comprehensive
--- NOTE | 2022-04-23 04:46 | ECG_ITS ---
[facility] Test Date: 2022-04-23 Pat Name: Josephine Contreras Department: Room: Gender: Female Gin Inspector: : 1940 Requested By: Aurelia Bray Order Number: [id number] Jadon MD: Emmanuel Nixon M.D. Measurements Intervals [place] Rate: 64 P: 56 UT: 138 QRS: 58 QRSD: 89 T: 55 QT: 389 QTc: 403 Interpretive Statements SINUS RHYTHM Compared to ECG 05/29/2021 10:32:03 Sinus bradycardia no longer present Myocardial infarct finding no longer present Electronically Signed On 04-23-2022 11:03:48 DIRECTOR NEWS by Emmanuel Nixon M.D. [id number]
[2022-04-23] MEDS: ipratropium-albuterol 3 mL Neb INHALATION (04:50)
[2022-04-23 04:54] VITALS: PULSE 73; RESP 16; O2SAT 95
[2022-04-23 05:03] VITALS: BP 133/81; PULSE 71; RESP 16; O2SAT 93
[2022-04-23 05:08] LABS: Basophils # 0.1 10^3/uL (0.0-0.1); Basophils % 1.1 %; Eosinophils # 0.4 10^3/uL (0.0-0.8); Eosinophils % 6.5 %; Hematocrit 37.4 % (37.0-47.0); Lymphocytes # 1.2 10^3/uL (0.8-4.8); Lymphocytes % 18.1 %; Mean Corpuscular HGB Conc 32.1 g/dL (30.0-36.0); Mean Corpuscular Hemoglobin 29.3 pg (28.0-34.0); Mean Corpuscular Volume 91.4 fl (81-99); Mean Platelet Volume 9.2 fL (7.4-10.4); Monocytes # 0.5 10^3/uL (0.2-0.9); Monocytes % 8.1 %; Neutrophils # 4.38 10^3/uL (1.8-7.7); Neutrophils % 65.9 %; Nucleated Red Blood Cells % 0 %; Platelet Count 273 10^3/cmm (130-400); Red Blood Count 4.09 10^6/uL (4.1-5.3); Red Cell Distribution Width 14.7 % (12.1-15.1); White Blood Count 6.6 10^3/uL (4.0-10.0)
[2022-04-23 05:09] LABS: SARS Covid-2 Antigen negative (Negative)
[2022-04-23 05:10] LABS: Influenza A by IFA negative (Negative); Influenza B by IFA negative (Negative)
[2022-04-23 05:16] VITALS: BP 167/87; PULSE 77; RESP 16; O2SAT 92
[2022-04-23 05:28] LABS: INR 1.18 (0.8-1.2)
[2022-04-23 05:45] LABS: Alanine Aminotransferase 22 U/L (0-33); Albumin Level 3.9 g/dL (3.5-5.2); Alkaline Phosphatase 69 U/L (35-105); Aspartate Amino Transferase 29 U/L (0-32); Blood Urea Nitrogen 13 mg/dL (8-23); Calcium 9.3 mg/dL (8.5-10.5); Carbon Dioxide 24 mmol/L (22-29); Chloride 103 mmol/L (98-107); Creatinine Clr Calc Pharmacy 55.9822; Globulin 3.1 g/dL (1.3-4.6); Glucose 114 mg/dL (65-115); NT Pro B Type Natriuretic Pept 249 pg/mL (0-450); Osmolality Calculated 287 mOsm/kg (285-295); Sodium 138 mmol/L (136-145); Total Bilirubin 0.6 mg/dL (0.15-1.2)
== END 2022-04-23 06:15 | disposition home or self-care (01) ==
PROVIDERS: Emergency Provider Emergency Medicine; PCP Internal Medicine
DX: J40 Bronchitis, not specified as acute or chronic (principal); I10 Essential (primary) hypertension
CPT/HCPCS: 71045; 80053; 83880; 85025; 85610; 87426; 87804; 93005; 94640; 96374; 99285; J2930

== ENCOUNTER → 2022-05-25 14:55 | Outpatient (BNVA) | payer MEDICARE, OTHER, SELFPAY | PROVIDERS: PCP Internal Medicine; Visit Provider Internal Medicine | DX: I10 Essential (primary) hypertension (principal); R00.2 Palpitations; R07.9 Chest pain, unspecified; R06.02 Shortness of breath; I26.94 Multiple subsegmental thrombotic pulmonary emboli without acute cor pulmonale; R60.0 Localized edema; R06.09 Other forms of dyspnea | CPT/HCPCS: 99214 ==

== ENCOUNTER 2022-06-23 07:37 | Outpatient (CLI) | payer MEDICARE, OTHER, SELFPAY ==
--- NOTE | 2022-06-23 08:16 | US_ITS ---
WS: [id number] Complete ABDOMINAL ULTRASOUND HISTORY: COLICKY ABDOMINAL PAIN COMPARISON: 07/06/2018 renal ultrasound Liver: 15.8 cm in length. Liver is normal size and echogenicity with no mass or intrahepatic dilatati on. Portal Vein: Normal hepatopetal flow with monophasic waveform. Gallbladder: Normally distended with no gallstones, wall thickening or pericholecystic fluid. Pancreas: Normal size and echogenicity. CBD: 0.2 cm. Right kidney: 15.1 cm x 4.2 cm x 4.2 cm. Kidney is enlarged secondary to a large renal cyst from the upper pole. There are a few low-level echoes within the cyst. Cyst measures 9.2 x 8.7 x 9.2 cm. No o bstruction or solid mass. Left kidney: 11.0 cm x 4.7 cm x 4.9 cm. No solid mass or obstruction. Central renal cyst measures 1. 6 x 1.8 x 1.6 cm. Additional cyst in the superior pole measuring 2.1 x 1.7 x 1.9 cm. Spleen: Normal size and echogenicity. Abdominal aorta and IVC are within normal limits. No ascites. US/US abdomen complete* [id number] IMPRESSION: 1. Normal gallbladder. 2. Bilateral renal cysts. Large RIGHT renal cyst was previously described in 2 019 with only minimal increase in size.
== END 2022-06-23 07:38 | disposition home or self-care (01) ==
PROVIDERS: PCP Internal Medicine; Visit Provider Electrodiagnostic Medicine
DX: R10.84 Generalized abdominal pain (principal); N28.1 Cyst of kidney, acquired
CPT/HCPCS: 76700

== ENCOUNTER 2022-06-24 09:48 | Outpatient (CLI) | payer MEDICARE, OTHER, SELFPAY ==
--- NOTE | 2022-06-24 10:00 | USCV_ITS ---
Josephine Contreras Age: 82 Gender: F : 1940 Exam Date: 06/24/2022 10:07 Ordering Phys: Emmanuel Nixon M.D ([email or web address]) Technologist: Exam [place] [facility] [place]: CHEST PAIN, AND SHORTNESS OF BREATH BP: 144 / 82 HR: 53 Rhythm: Sinus Technical Quality: Adequate MEASUREMENTS (Male / Female) Normal Values 2D ECHO LV Diastolic Diameter PLAX 3.9 cm 4.2 - 5.9 / 3.9 - 5.3 cm LV Systolic Diameter PLAX 2.6 cm IVS Diastolic Thickness 1.2 cm 0.6 - 1.0 / 0.6 - 0.9 cm IVS Systolic Thickness 1.4 cm LVPW Diastolic Thickness 1.3 cm 0.6 - 1.0 / 0.6 - 0.9 cm LVPW Systolic Thickness 1.5 cm LVOT Diameter 2.1 cm LV Ejection Fraction 2D Teich 61.8 % LV Ejection Fraction MOD 2C 73.2 % LV Ejection Fraction 2C AL 72.5 % LA Diameter 3.6 cm Aorta at Sinotubular Diameter 2.2 cm IVC Diameter 1.3 cm M-MODE Aortic Annulus Diameter 3.2 cm LA Ao Ratio MM 1.4 MV E Point Septal Separation 0.8 cm DOPPLER AV Peak Velocity 164.0 cm/s LVOT Peak Velocity 128.0 cm/s AV Area Cont Eq vti 2.6 cm squared AV Area Cont Eq pk 2.7 cm squared MV Area PHT 2.2 cm squared Mitral E to A Ratio 0.7 MV E' Velocity 46.5 cm/s Mitral E to MV E' Ratio 11.8 Mitral E to LV E' Lateral Ratio 10.3 Mitral E to LV E' Septal Ratio 13.9 TR Peak Velocity 272.5 cm/s TR Peak Gradient 29.7 mmHg Right Atrial Pressure 3.0 mmHg Pulmonary Artery Systolic Pressu 32.7 mmHg RV Acceleration Time 0.2 s FINDINGS Left Ventricle Left ventricle is normal in size. LV systolic function is normal with EF of 55 to 60%. No regional wall motion abnormalities are seen. Grade 1 diastolic dysfunction Right Ventricle Normal in size and function Right Atrium Normal in size Left Atrium Normal in size Mitral Valve Structurally normal mitral valve.Mild mitral regurgitation. Aortic Valve Structurally normal aortic valve.No significant stenosis or regurgitation. Tricuspid Valve Mild tricuspid regurgitation. RVSP is 35 to 40 mmHg. This is consistent with mild pulmonary hypertension Pulmonic Valve Not well-visualized Pericardium Normal Aorta Normal in size IVC Appears to be normal CONCLUSIONS LV systolic function is normal with EF of 55 to 60%. Grade 1 diastolic dysfunction Mild mitral regurgitation Mild pulmonary hypertension Mild tricuspid regurgitation Compared to prior echocardiogram from 2019, patient now has mild pulmonary hypertension Emmanuel Nixon MD (Electronically Signed) Final Date: 24 June 2022 11:13 S
== END 2022-06-24 09:49 | disposition home or self-care (01) ==
LOC: RAD 09:58
PROVIDERS: PCP Internal Medicine; Visit Provider Internal Medicine
DX: R07.9 Chest pain, unspecified (principal); R06.02 Shortness of breath; I08.1 Rheumatic disorders of both mitral and tricuspid valves; I27.20 Pulmonary hypertension, unspecified
CPT/HCPCS: 93306

== ENCOUNTER → 2022-07-06 13:16 | Outpatient (BNVA) | payer MEDICARE, OTHER, SELFPAY | PROVIDERS: PCP Internal Medicine; Visit Provider Internal Medicine Rheumatology | DX: Z15.89 Genetic susceptibility to other disease (principal); Z79.899 Other long term (current) drug therapy; Z86.79 Personal history of other diseases of the circulatory system; Z71.89 Other specified counseling; J32.0 Chronic maxillary sinusitis; J32.2 Chronic ethmoidal sinusitis; Z86.711 Personal history of pulmonary embolism; Z79.01 Long term (current) use of anticoagulants; H57.10 Ocular pain, unspecified eye | CPT/HCPCS: 99214 ==

== ENCOUNTER 2022-08-10 21:03 | Emergency (ER) | payer MEDICARE, OTHER, SELFPAY ==
[2022-08-10] VITALS (30 sets, daily range): BP systolic 132–171; BP diastolic 71–92; PULSE 47–119; RESP 7–27; TEMP 36.8; O2SAT 92–96; BMI 29.1
--- NOTE | 2022-08-10 21:05 | ECG_ITS ---
[facility] Test Date: 2022-08-10 Pat Name: Josephine Contreras Department: Room: Gender: Female Certified Art Therapist: : 1940 Requested By: Aurelia Bray Order Number: [id number] Reading MD: PAUL PADRON Measurements Intervals [place] Rate: 55 P: 66 [place]: 189 QRS: 6 QRSD: 90 T: 9 QT: 428 QTc: 412 Interpretive Statements SINUS BRADYCARDIA WITH MARKED SINUS ARRHYTHMIA INFERIOR MYOCARDIAL INFARCTION , PROBABLY OLD [40+ ms Q WAVE AND/OR ST/T ABNORMALITY IN II/aVF] Compared to ECG 04/23/2022 04:46:20 Myocardial infarct finding now present Sinus rhythm no longer present Electronically Signed On 08-13-2022 23:41:45 CDT by PAUL PADRON [id number]
--- NOTE | 2022-08-10 21:05 | XRR_ITS ---
PROCEDURE INFORMATION: Exam: XR Chest Exam date and time: 08/10/2022 9:15 PM Age: 82 years old Clinical indication: Pain; Chest pressure; Additional info: Cp TECHNIQUE: Imaging protocol: Radiologic exam of the chest. Views: 1 view. COMPARISON: CR XR chest 2V* [id number] 06/02/2022 12:27 PM FINDINGS: Lungs: No CHF/pulmonary edema. Stable parenchymal scarring or atelectasis in the left lower lung. Visible lungs otherwise appear essentially clear. Pleural spaces: No visible pneumothorax. No definite pleural fluid. Heart/Mediastinum: Heart size is within normal limits. Vasculature: Moderate aortic tortuosity, stable. Bones/joints: Old fracture of the proximal left humerus. XR/XR chest 1V portable [id number] IMPRESSION: 1. No definite CHF or pneumonia. 2. Other findings discussed above.
--- NOTE | 2022-08-10 21:19 | ED_ITS ---
HPI - Chest Pain General: Chief Complaint: Chest Pain Stated Complaint: Chest Pains Time Seen by Provider: 08/10/22 21:05 Source: patient Mode of arrival: ambulatory Limitations: no limitations History of Present Illness: 82-year-old female states that she started having chest pain roughly an hour ago along with hypertension she took 2 nitro at home and her pain is since resolved she denies any shortness of breath or diaphoresis with the pain denies any radiation of the pain the pain was in the center of her chest. Associated symptoms: Deny abdominal pain, dyspnea, fever(s), nausea or vomiting Review of Systems Const: Denies: fever(s), chills, body aches or change in appetite Eyes: Denies: blurry vision or eye discomfort ENMT: Denies: throat pain or dental pain Card: Reports: chest pain Resp: Denies: dyspnea GI: Denies: abdominal pain, nausea, vomiting or diarrhea : Denies: dysuria Musc: Denies: neck pain or back pain Skin/Breast: Denies: rash Neuro: Denies: headache(s) Psych: Denies: depression [place]/Lymph: Denies: easy bruising All/Imm: Denies: urticaria PFSH ED PFSH: Medical History Asthma Bradycardia Cerebral meningioma Chronic sinusitis Deviated septum Dysphonia GERD (gastroesophageal reflux disease) Health education/counseling High risk medication use 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) Hypertension Immunization counseling Incomplete bladder emptying Left humeral fracture Memory loss Migraine Post-nasal drip Recurrent UTI (urinary tract infection) Retro-orbital pain of both eyes Sinusitis, maxillary, chronic Temporal headache Urgency incontinence Surgical History H/O hand surgery History of abdominal hysterectomy History of appendectomy History of biopsy of temporal artery History of bunionectomy of left great toe History of cataract extraction with lens replacement History of repair of rectocele Family History Father CHF (congestive heart failure) Mother Diabetes 3 SIBLINGS HAVE DIABETES WELL Mother Cancer Hypertension Brother No problems noted. Brother No problems noted. Brother AAA (abdominal aortic aneurysm) Sister AAA (abdominal aortic aneurysm) Cancer Father Heart attack Social History Smoking and tobacco status: never smoked Second hand smoke exposure: Yes ([id number]) Alcohol intake: current Alcohol intake frequency: holidays/special occasions only Alcohol type: wine Lives independently: Yes Household members: spouse Marital status: Current occupational status: retired Current gender identity: Female Physical Exam Const: COMMON NORMALS: no acute distress, patient oriented x3 and healthy appearing HENMT: COMMON NORMALS: normocephalic and atraumatic HEAD & SCALP: normocephalic and atraumatic Eye: COMMON NORMALS: Equal, round and reactive pupils present and EOMs intact bilaterally PUPIL: Yes Equal, round and reactive pupils present Neck/C-Spine: COMMON NORMALS: full ROM and supple Chest: COMMONS NORMALS: normal inspection of the chest and normal palpation of entire chest wall Resp: COMMON NORMALS: normal respiratory effort, No retractions, No use of accessory muscles and clear to auscultation bilaterally AUSCULTATION: clear to auscultation bilaterally Cardio: COMMON NORMALS: regular rate, regular rhythm and No murmurs present (Cardio) RATE: regular rate RHYTHM: regular rhythm GI: COMMON NORMALS: Normal to inspection, nondistended, normoactive bowel sounds present, Soft to palpation, non-tender and no masses PALPATION: Yes Soft to palpation Extremity: COMMON NORMALS: normal to inspection and full ROM Neuro: COMMON NORMALS: patient oriented x3, moves all extremities and no focal motor deficits Psych: COMMON NORMALS: mental status grossly normal, Normal thought process present and cooperative THOUGHT PROCESS: Normal thought process present Skin: COMMON NORMALS: no rashes or lesions noted and no wounds GENERAL SKIN EXAM: no rashes or lesions noted Course Vital Signs: Vital signs: Vital Signs Temperature 98.3 F 08/10/22 21:08 Pulse Rate 61 08/10/22 22:00 Respiratory Rate 17 08/10/22 22:00 Blood Pressure 146/80 08/10/22 22:00 Pulse Oximetry 92 08/10/22 22:00 Oxygen Delivery Me thod 08/10/22 21:08 [facility] - Chest Pain Medical Decision Making Patient presents here with chest pain since resolved her initial and repeat troponin here are normal EKG x-ray normal as well she has been pain-free here no signs of acute coronary syndrome no signs of aortic dissection or pulmonary embolism she is to 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 Lab Data 08/10/22 21:20 08/10/22 21:20 Radiology Impressions Chest X-Ray 08/10/22 21:05 IMPRESSION: 1. No definite CHF or pneumonia. 2. Other findings discussed above. Laboratory Results WBC 5.9 10^3/uL (4.0-10.0) 08/10/22 21: RBC 4.31 10^6/uL (4.1-5.3) 08/10/22 21:20 Hgb 12.3 g/dL (11.5-15.3) 08/10/22 21: Hct 38.8 % (37.0-47.0) 08/10/22 21: MCV 90.0 fl (81-99) 08/10/22 21: MCH 28.5 pg (28.0-34.0) 08/10/22: MCHC 31.7 g/dL (30.0-36.0) 08/10/22 21: RDW 14.2 % (12.1-15.1) 08/10/22 21: Plt Count 274 10^3/cmm (130-400) 08/10/22 21: MPV 9.5 fL (7.4-10.4) 08/10/22 21: Neut % (Auto) 49.3 % 08/10/22 21: Lymph % (Auto) 37.0 % 08/10/22 21:20 [place] % (Auto) 9.3 % 08/10/22 21:20 Eos % (Auto) 3.4 % 08/10/22 21:20 Baso % (Auto) 0.8 % 08/10/22 21: Neut # (Auto) 2.93 10^3/uL (1.8-7.7) 08/10/22 21: Lymph # (Auto) 2.2 10^3/uL (0.8-4.8) 08/10/22 21:20 [place] # (Auto) 0.6 10^3/uL (0.2-0.9) 08/10/22 21:20 Eos # (Auto) 0.2 10^3/uL (0.0-0.8) 08/10/22 21:20 Baso # (Auto) 0.1 10^3/uL (0.0-0.1) 08/10/22 21:20 Nucleated RBC % (auto) 0 % 08/10/22 21:20 Nucleated RBCs # 0.0 /100WBC 08/10/22 21:20 Sodium 137 mmol/L (136-145) 08/10/22 21:20 Potassium 4.1 mmol/L (3.5-5.1) 08/10/22 21:20 Chloride 98 mmol/L (98-107) 08/10/22 21:20 Carbon Dioxide 28 mmol/L (22-29) 08/10/22 21:20 Anion Gap 15.1 (5-19) 08/10/22 21:20 BUN 18 mg/dL (8-23) 08/10/22 21:20 Creatinine 0.9 mg/dL (0.5-0.9) 08/10/22 21:20 GFR Calculation Not Reportable 08/10/22 21:20 Glucose 106 mg/dL (65-115) 08/10/22 21:20 Calculated Osmolality 286 mOsm/kg (285-295) 08/10/22 21:20 Calcium 9.7 mg/dL (8.5-10.5) 08/10/22 21:20 Total Bilirubin 0.3 mg/dL (0.15-1.2) 08/10/22 21:20 AST 26 U/L (0-32) 08/10/22 21:20 ALT 15 U/L (0-33) 08/10/22 21:20 Alkaline Phosphatase 85 U/L (35-105) 08/10/22 21:20 Troponin T Baseline 7 ng/L (0-10) 08/10/22 21:20 Troponin T 120 Minute 7.23 ng/L (0-10) 08/10/22 22:58 Total Protein 7.3 g/dL (6.6-8.7) 08/10/22 21:20 Albumin 4.3 g/dL (3.5-5.2) 08/10/22 21:20 Globulin 3.0 g/dL (1.3-4.6) 08/10/22 21:20 EKG Data EKG 1: I personally reviewed and interpreted this EKG as follows: EKG interpretation date: 08/10/22 EKG interpretation time: 21:12 Interpretation: sinus geetha hr [address] or t wave abnormalities qrs 90 qtc 418 Discharge Plan Discharge Patient Disposition: Home Clinical Impression: Chest pain Condition: Stable Prescriptions: No Action acetaminophen [Tylenol Extra Strength] 500 mg tablet 500 mg PO BEDTIME PRN (Reason: Pain) psyllium husk [Fiber Laxative (psyllium husk)] 0.52 gram capsule 0.52 g PO DAILY PRN (Reason: Constipation) isosorbide mononitrate 30 mg tablet extended release 24 hr 15 mg PO BID escitalopram oxalate 10 mg tablet 5 mg PO DAILY aspirin [Adult Aspirin Regimen] 81 mg tablet,delayed release (DR/EC) 81 mg PO DAILY pantoprazole 40 mg tablet,delayed release (DR/EC) 40 mg PO DAILY diclofenac sodium 1 % gel 2 g TOPICAL QID PRN (Reason: joint pain) Qty: 100 3RF Rx Instructions: apply to affected area as needed folic acid 1 mg tablet 1 mg PO TID 90 Days Qty: 270 1RF gabapentin 300 mg capsule 300 mg .ROUTE BID Qty: 90 3RF Rx Instructions: take 1 cap in AM and 2 caps at HS methotrexate sodium 2.5 mg tablet 7.5 mg PO Q7D Qty: 45 1RF Rx Instructions: take 3 tabs once a week on (Wednesdays) prednisone 20 mg tablet See Rx Instructions PO .COMPLEX PRN (Reason: joint pain flare) Qty: 30 1RF Rx Instructions: take 1 tab daily for 5-7 days as needed for arthritis flare PO PRN; simvastatin 20 mg tablet 20 mg PO DAILY Qty: 90 3RF Systane (propylene glycol) 0.4-0.3 % drops See Rx Instructions .ROUTE .COMPLEX Rx Instructions: 1 drop in eyes every 2 hours during the day and at bedtime B Complex 1 tab PO DAILY calcium carbonate-vitamin D2 600 mg calcium- 200 unit tablet 2 tab PO DAILY levalbuterol tartrate 45 mcg/actuation HFA aerosol inhaler 2 puff INHALATION Q4H PRN (Reason: Shortness Of Breath) Discharge Orders: Discharge ED (Routine); Ordered 08/10/22 Ordered By: Aurelia Bray Referrals: Emmanuel Nixon M.D [Physician] - 1-3 days Carmona,Lucio Micheal, DO [Primary Care Provider] - Discharge Diet: Advance as tolerated Discharge Activity: Resume usual activity Patient Instructions: Chest Pain (ED) Coding Level of Care Code ED Painter Chassis for Krunal Piña
--- NOTE | 2022-08-10 21:22 | PC.NURSE ---
patient placed on registered health nurse, BP and pulse ox.
[2022-08-10 21:26] LABS: Basophils # 0.1 10^3/uL (0.0-0.1); Basophils % 0.8 %; Eosinophils # 0.2 10^3/uL (0.0-0.8); Eosinophils % 3.4 %; Hematocrit 38.8 % (37.0-47.0); Hemoglobin 12.3 g/dL (11.5-15.3); Lymphocytes # 2.2 10^3/uL (0.8-4.8); Mean Corpuscular HGB Conc 31.7 g/dL (30.0-36.0); Mean Corpuscular Hemoglobin 28.5 pg (28.0-34.0); Mean Platelet Volume 9.5 fL (7.4-10.4); Monocytes # 0.6 10^3/uL (0.2-0.9); Monocytes % 9.3 %; Neutrophils # 2.93 10^3/uL (1.8-7.7); Neutrophils % 49.3 %; Nucleated Red Blood Cells % 0 %; Platelet Count 274 10^3/cmm (130-400); Red Blood Count 4.31 10^6/uL (4.1-5.3); Red Cell Distribution Width 14.2 % (12.1-15.1); White Blood Count 5.9 10^3/uL (4.0-10.0)
[2022-08-10 21:48] LABS: Alanine Aminotransferase 15 U/L (0-33); Albumin Level 4.3 g/dL (3.5-5.2); Alkaline Phosphatase 85 U/L (35-105); Anion Gap 15.1 (5-19); Aspartate Amino Transferase 26 U/L (0-32); Blood Urea Nitrogen 18 mg/dL (8-23); Calcium 9.7 mg/dL (8.5-10.5); Carbon Dioxide 28 mmol/L (22-29); Chloride 98 mmol/L (98-107); Glucose 106 mg/dL (65-115); Osmolality Calculated 286 mOsm/kg (285-295); Potassium 4.1 mmol/L (3.5-5.1); Sodium 137 mmol/L (136-145); Total Bilirubin 0.3 mg/dL (0.15-1.2); Total Protein 7.3 g/dL (6.6-8.7)
[2022-08-10 21:49] LABS: Troponin(5th) Baseline 7 ng/L (0-10)
--- NOTE | 2022-08-10 22:59 | ECG_ITS ---
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: : 1940 Requested By: Aurelia Bray Order Number: [id number] Reading MD: PAUL PADRON Measurements Intervals [place] Rate: 53 P: 66 [place]: 189 QRS: 3 QRSD: 100 T: 4 QT: 437 QTc: 412 Interpretive Statements SINUS BRADYCARDIA WITH OCCASIONAL SUPRAVENTRICULAR PREMATURE COMPLEXES ANTEROLATERAL MYOCARDIAL INFARCTION , OF INDETERMINATE AGE [40+ ms Q WAVE IN I/aVL/V3-V6] Compared to ECG 08/10/2022 21:12:56 Sinus arrhythmia no longer present Myocardial infarct finding still present Electronically Signed On 08-13-2022 23:46:03 CDT by PAUL PADRON [id number]
[2022-08-10 23:22] LABS: Troponin 5 2HR 7.23 ng/L (0-10)
[2022-08-10 23:36] LABS: Troponin 5 2HR Delta 0.23 ABS# (0-10)
--- NOTE | 2022-08-11 09:50 | DCPLANNER ---
Addendum entered by Geneva Martino 08/31/22 14:47: Patient had a follow up appointment scheduled with heart care - patient did attend appointment Addendum entered by Geneva Martino 08/17/22 07:54: Patient has a follow up appointment scheduled for Tuesday, August 30, 2022 at 9:30 with ADVERTISING SALES MANAGER, Lainey Rhoades at [facility]. Clinic will call patient with appointment information. Original Note: manager distribution center had message to schedule a follow up appointment for patient with cardiology. manager distribution center sent patients information to the front office staff at [facility]. Patients information will be printed and reviewed. Clinic will call patient with appointment information.
== END 2022-08-10 23:40 | disposition home or self-care (01) ==
PROVIDERS: Emergency Provider Emergency Medicine; PCP Internal Medicine
DX: R07.9 Chest pain, unspecified (principal); I10 Essential (primary) hypertension; J45.909 Unspecified asthma, uncomplicated; Z82.49 Family history of ischemic heart disease and other diseases of the circulatory system
CPT/HCPCS: 71045; 80053; 84484; 85025; 93005; 99285

== ENCOUNTER → 2022-08-18 10:06 | Outpatient (BNVA) | payer MEDICARE, OTHER, SELFPAY | PROVIDERS: PCP Internal Medicine; Visit Provider Internal Medicine Pulmonary Disease | DX: I26.94 Multiple subsegmental thrombotic pulmonary emboli without acute cor pulmonale (principal); Z79.01 Long term (current) use of anticoagulants | CPT/HCPCS: 99214 ==

== ENCOUNTER → 2022-08-30 09:00 | Outpatient (BNVA) | payer MEDICARE, OTHER, SELFPAY | PROVIDERS: PCP Internal Medicine; Visit Provider Nurse Practitioner Family | DX: I10 Essential (primary) hypertension (principal); R07.89 Other chest pain | CPT/HCPCS: 99214 ==

== ENCOUNTER → 2022-10-27 13:40 | Outpatient (BNVA) | payer MEDICARE, OTHER, SELFPAY | PROVIDERS: PCP Internal Medicine; Visit Provider Internal Medicine Rheumatology | DX: Z15.89 Genetic susceptibility to other disease (principal); Z71.89 Other specified counseling; Z86.79 Personal history of other diseases of the circulatory system; Z79.899 Other long term (current) drug therapy | CPT/HCPCS: 36415; 80076; 82565; 85025; 86140; 99214 ==

== ENCOUNTER → 2022-12-02 09:13 | Outpatient (BNVA) | payer MEDICARE, OTHER, SELFPAY | PROVIDERS: PCP Internal Medicine; Visit Provider Internal Medicine | DX: I10 Essential (primary) hypertension (principal); I26.94 Multiple subsegmental thrombotic pulmonary emboli without acute cor pulmonale; I65.23 Occlusion and stenosis of bilateral carotid arteries; R60.0 Localized edema; R00.2 Palpitations; R06.09 Other forms of dyspnea; Z79.01 Long term (current) use of anticoagulants | CPT/HCPCS: 99214 ==

== ENCOUNTER 2022-12-14 07:33 | Outpatient (CLI) | payer MEDICARE, OTHER, SELFPAY ==
--- NOTE | 2022-12-14 08:15 | USCV_ITS ---
Josephine Contreras Age: 82 Gender: F : 1940 Exam Date: 12/14/2022 08:10 Ordering Phys: Emmanuel Nixon M.D ([email or web address]) Technologist: CODY Exam Location: [facility] [place] Indication: Stenosis Risk Factors: Previous Vascular Surgery: Right Brachial BP: / Left Brachial BP: / Right Left Velocity (cm/s) Spectral Plaque Velocity (cm/s) Spectral Plaque Syst/Diast Broadening Syst/Diast Broadening 50.00/ 11.80 Prox CCA 42.70 / 11.80 53.20/ 15.80 Mid CCA 44.70 / 15.80 36.70/ 13.20 Distal CCA 43.40 / 13.10 33.40/ 10.90 Prox ICA 31.00 / 15.50 52.40/ 21.00 Mid ICA 52.90 / 22.40 57.10/ 26.70 Distal ICA 54.70 / 18.10 49.30 ECA 58.50 1.07 ICA/CCA 1.22 Antegrade Vertebral Antegrade 33.10/ 12.30 cm/s 38.00/ 13.20 cm/s Tri Subclavian Tri 80.80 74.60 CONCLUSIONS Right ICA stenosis <50%. Left ICA stenosis <50%. Normal antegrade Doppler flow noted in the right vertebral artery. Normal antegrade Doppler flow noted in the left vertebral artery. Jhonatan Appiah MD (Electronically Signed) Final Date: 14 December 2022 17:16 S
== END 2022-12-14 07:34 | disposition home or self-care (01) ==
LOC: RAD 07:37
PROVIDERS: PCP Electrodiagnostic Medicine; Visit Provider Internal Medicine
DX: I65.23 Occlusion and stenosis of bilateral carotid arteries (principal)
CPT/HCPCS: 93880

== ENCOUNTER 2022-12-16 07:13 | Outpatient (CLI) | payer MEDICARE, OTHER, SELFPAY ==
--- NOTE | 2022-12-16 07:32 | US_ITS ---
WS: [id number] RENAL ULTRASOUND URINARY BLADDER ULTRASOUND HISTORY: RENAL CYSTS,BILATERAL COMPARISON: 07/06/2018 and 06/23/2022 TECHNIQUE: 2-D and color Doppler imaging of the kidney submitted. Right kidney: 10.8 cm x 5.3 cm x 4.7 cm. Normal size kidney. Large cyst from the superior pole RIGHT kidney has significantly decreased in siz e since the prior examination. Cyst persists in the upper pole measuring 4.0 x 4.2 x 3.3 cm. There is no hydronephrosis or solid mass. Left kidney: 9.8 cm x 4.3 cm x 5.1 cm. Normal size kidney with no hydronephrosis. Cyst superior pole measures 1.8 x 2.2 x 2.7 cm. Aorta: Normal. Urinary Bladder: Moderately well distended urinary bladder. On post void imaging the bladder volume i s 120 cubic centimeters. US/US renal BI with PV bladder IMPRESSION: 1. Decrease in size of previously described cyst upper pole RIGHT kidney. As p er history this cyst was recently aspirated. Residual cyst measures 4.0 x 4.2 x 3.3 cm. 2. Additional cyst superior pole LEFT kidney with no significant increase in s ize since prior studies. 3. Mild post void residual.
== END 2022-12-16 07:14 | disposition home or self-care (01) ==
LOC: RAD 07:17
PROVIDERS: PCP Electrodiagnostic Medicine; Visit Provider Urology
DX: N28.1 Cyst of kidney, acquired (principal)
CPT/HCPCS: 76770; 76857

== ENCOUNTER 2023-01-06 07:41 | Outpatient (CLI) | payer MEDICARE, OTHER, SELFPAY ==
--- NOTE | 2023-01-06 07:56 | MM_ITS ---
WS: [id number] BILATERAL SCREENING DIGITAL TOMOSYNTHESIS MAMMOGRAM WITH CAD HISTORY: SCREENING COMPARISON: 12/16/2020, 10/23/2019 Bilateral CC and MLO views with tomosynthesis and synthetic mammography submitted. Computer aided det ection analyzed. Breast composition: The breasts are heterogeneously dense, which may obscure small masses. No suspici ous masses, microcalcifications or architectural distortion. Benign calcifications in each breast. IMPRESSION: MM/[place] [id number] BI-RADS: 2-Benign FOLLOW UP: 1 Year Follow-up
== END 2023-01-06 07:42 | disposition home or self-care (01) ==
LOC: RAD 07:42 → MOBLMAM 07:55
PROVIDERS: PCP Electrodiagnostic Medicine; Visit Provider Electrodiagnostic Medicine
DX: Z12.31 Encounter for screening mammogram for malignant neoplasm of breast (principal)
CPT/HCPCS: 77063; 77067

== ENCOUNTER → 2023-01-24 13:03 | Outpatient (BNVA) | payer MEDICARE, OTHER, SELFPAY | PROVIDERS: PCP Electrodiagnostic Medicine; Visit Provider Internal Medicine Rheumatology | DX: Z79.899 Other long term (current) drug therapy (principal); Z86.79 Personal history of other diseases of the circulatory system; Z15.89 Genetic susceptibility to other disease; Z71.89 Other specified counseling | CPT/HCPCS: 36415; 80076; 82565; 85025; 86140; 99214 ==

== ENCOUNTER → 2023-06-01 14:00 | Outpatient (BNVA) | payer MEDICARE, OTHER, SELFPAY | PROVIDERS: PCP Electrodiagnostic Medicine; Visit Provider Internal Medicine Rheumatology | DX: Z79.899 Other long term (current) drug therapy (principal); Z86.79 Personal history of other diseases of the circulatory system; Z15.89 Genetic susceptibility to other disease; Z71.89 Other specified counseling | CPT/HCPCS: 36415; 80076; 82565; 85025; 86140; 99214 ==

== ENCOUNTER 2023-06-12 11:43 | Outpatient (CLI) | payer MEDICARE, OTHER, SELFPAY ==
--- NOTE | 2023-06-12 | US_ITS ---
WS: [id number] ULTRASOUND RENAL TECHNIQUE: Ultrasound examination of both kidneys. CLINICAL INFORMATION: Renal Cysts COMPARISON: Ultrasound 12/16/2022 FINDINGS: Simple cyst RIGHT upper pole measuring 4.2 x 6.6 x 5.1 cm RIGHT renal cyst previously measured 4.0 x 4.2 x 3.3 cm Simple LEFT renal cyst mid kidney measuring 1.3 x 1.1 x 1.1 cm Simple cyst LEFT mid kidney measuring 2.2 x 2.2 x 2.3 cm. RIGHT: Right kidney is normal in size and appearance. Echogenicity: Normal. Cortical thickness: 1.0 cm; Normal. Hydronephrosis: None. Perinephric fluid: None. Right kidney measures: 10.5 cm x 4.6 cm x 5.0 cm. LEFT: Left kidney is normal in size and appearance. Echogenicity: Normal. Cortical thickness: 1.0 cm; Normal. Hydronephrosis: None. Perinephric fluid: None. Left kidney measures: 10.5 cm x 4.3 cm x 4.1 cm. Normal visualized aorta. Normal bladder. IMPRESSION: 1. No hydronephrosis in either kidney. 2. Simple RIGHT renal cyst increased in size compared to 12/16/2022 described above. 3. Stable smaller simple LEFT renal cysts. 4. Normal bladder
== END 2023-06-12 11:44 | disposition home or self-care (01) ==
LOC: RAD 11:44
PROVIDERS: PCP Electrodiagnostic Medicine; Visit Provider Urology
DX: N28.1 Cyst of kidney, acquired (principal)
CPT/HCPCS: 76770

== ENCOUNTER → 2023-08-18 09:20 | Outpatient (BNVA) | payer MEDICARE, OTHER, SELFPAY | PROVIDERS: PCP Electrodiagnostic Medicine; Visit Provider Internal Medicine Pulmonary Disease | DX: I26.94 Multiple subsegmental thrombotic pulmonary emboli without acute cor pulmonale (principal); R60.0 Localized edema; Z79.01 Long term (current) use of anticoagulants | CPT/HCPCS: 99213; 99214 ==

== ENCOUNTER → 2023-09-01 09:32 | Outpatient (BNVA) | payer MEDICARE, OTHER, SELFPAY | PROVIDERS: PCP Electrodiagnostic Medicine; Visit Provider Nurse Practitioner Family | DX: I10 Essential (primary) hypertension (principal) | CPT/HCPCS: 99214 ==

== ENCOUNTER 2023-09-01 12:11 | Outpatient (CLI) | payer MEDICARE, OTHER, SELFPAY ==
--- NOTE | 2023-09-01 12:30 | USCV_ITS ---
Josephine Contreras Age: 83 Gender: F : 1940 Exam Date: 09/01/2023 12:38 Ordering Phys: Lainey Rhoades Technologist: Kyle Joseph [place] [facility] [place]ication: murmur BP: 122 / 79 HR: 60 Rhythm: Sinus Technical Quality: Adequate MEASUREMENTS (Male / Female) Normal Values 2D ECHO LVOT Diameter 2.1 cm LV Ejection Fraction MOD 2C 75.8 % LV Ejection Fraction 2C AL 75.8 % LA Diameter 4.0 cm RA Systolic Volume 4C AL 40.6 ml RA Systolic Volume 4C MOD 40.7 ml Aorta at Sinotubular Diameter 2.2 cm IVC Diameter 1.7 cm M-MODE LA Ao Ratio MM 1.2 AV Cusp Separation MM 1.6 cm DOPPLER AV Peak Velocity 154.0 cm/s LVOT Peak Velocity 108.0 cm/s AV Area Cont Eq vti 2.5 cm squared AV Area Cont Eq pk 2.4 cm squared MV Peak Velocity 133.0 cm/s MV Area PHT 3.9 cm squared Mitral E to A Ratio 0.8 TV Peak Velocity 292.5 cm/s TR Peak Velocity 294.0 cm/s TR Peak Gradient 34.6 mmHg TR Mean Velocity 210.0 cm/s TR Mean Gradient 20.6 mmHg TR Velocity Time Integral 93.8 cm PV Peak Velocity 96.0 cm/s RV Ejection Time 0.3 s FINDINGS Left Ventricle Left ventricle is normal in size. LV systolic function is normal with EF of 55 to 60%. No regional wall motion normalities are seen. Right Ventricle Normal in size and function Right Atrium Normal in size. An echogenic mass is seen attached to the interatrial septum on right atrial side. It is not mobile. Left Atrium Normal in size Mitral Valve Mild mitral annular calcification. Mild mitral regurgitation. Aortic Valve Structurally normal aortic valve. No significant stenosis or regurgitation. Tricuspid Valve Mild tricuspid regurgitation. RVSP is 35 to 40 mmHg. This is consistent with mild pulmonary hypertension. Pulmonic Valve Trace pulmonic regurgitation. Pericardium Normal Aorta Normal in size IVC Appears to be normal CONCLUSIONS LV systolic function is normal with EF of 55-60% An echogenic mass is seen attached to the interatrial septum on right atrial side. It is not mobile. Thrombus vs mass vs hypertrophy of interatrial septum. Mild mitral regurgitation Mild tricuspid regurgitation Mild pulmonary hypertension Trace pulmonic regurgitation Recommend further evaluation with cardiac MRI/ CHATO for further evaluation. Emmanuel Nixon MD (Electronically Signed) Final Date: 05 September 2023 11:34 S
== END 2023-09-01 12:12 | disposition home or self-care (01) ==
PROVIDERS: PCP Electrodiagnostic Medicine; Visit Provider Nurse Practitioner Family
DX: I08.1 Rheumatic disorders of both mitral and tricuspid valves (principal)
CPT/HCPCS: 93306; 99214